=== PATIENT | female | born 1955 | race Caucasian/White ===

== ENCOUNTER 2020-08-17 16:52 | Emergency (ER) | payer OTHER, SELFPAY ==
[2020-08-17] VITALS (13 sets, daily range): BP systolic 123–140; BP diastolic 98–122; PULSE 111–125; RESP 12–38; TEMP 36.8; O2SAT 92–94
--- NOTE | ~2020-08-17 | XR_ITS ---
EXAMINATION: XR chest 1V portable DATE: 08/17/2020 19:01 INDICATION: Weakness. TECHNIQUE: A single frontal view of the chest was obtained. COMPARISON: Chest 2 views 09/28/2018, CT abdomen and pelvis 09/28/2018 FINDINGS: There is mild atelectasis in lingula. No pleural effusion or pneumothorax. The heart size i s normal. There is a small hiatal hernia. IMPRESSION: 1. Mild atelectasis in lingula. 2. Small hiatal hernia. Reviewed, dictated and finalized at location A. ICATION SOFTWARE DEVELOPER
--- NOTE | ~2020-08-17 | CT_ITS ---
EXAMINATION: CT brain wo con DATE: 08/17/2020 18:42 INDICATION: Weakness. TECHNIQUE: Computed tomography (CT) of the head was performed without intravenous contrast. The mA wa s adjusted according to patient size. Iterative reconstruction technique was employed. The dose-lengt h product was 605.33 mGy-cm. COMPARISON: Head CT 10/13/2017 FINDINGS: There is an acute intraparenchymal hematoma in right cerebellar hemisphere with surrounding vasogenic edema and mass effect on the fourth ventricle. There is mild enlargement of the temporal h orns of the lateral ventricles. There is no acute ischemic infarct. There are areas of low attenuatio n in the cerebral white matter, which is within normal limits for the patient's age. The paranasal si nuses are clear. The mastoid air cells are normal. IMPRESSION: 1. Acute intraparenchymal hematoma in right cerebellar hemisphere. I called this result to Dr. Samson huffman. 2. Mild enlargement of the temporal horns of the lateral ventricles secondary to mass effect on the f ourth ventricle from the hematoma. Reviewed, dictated and finalized at location A. GHT BREAKER IMPRESSION: 1. Acute intraparenchymal hematoma in right cerebellar hemisphere. I called thi s result to Dr. Schwartz. 2. Mild enlargement of the temporal horns of the lateral ventricles secondary t o mass effect on the fourth ventricle from the hematoma.
--- NOTE | 2020-08-17 16:46 | ED.WEAKNESS ---
HPI - Weakness General Chief complaint: Altered Mental Status Stated complaint: weakness Source: patient and EMS Mode of arrival: EMS Limitations: dementia and intoxication History of Present Illness HPI Narrative: Patient is a 65-year-old female with a history of polysubstance abuse, diabetes, hepatitis C, hypertension who presents for evaluation of weakness, altered mental status. Family apparently called EMS for patient that was weak, had fallen 2-3 days ago and initially had refused to be transported to the ER. Patient does report some alcohol intake today. She was found with a bottle of vodka in her purse tonight by EMS. Patient is denying headache, chest pain, shortness of breath. Reports mild abdominal pain. Denies nausea or vomiting. History is limited due to patient's mentation. Related Data Allergies Allergy/AdvReac Type Severity Reaction Status Date / Time Penicillins Allergy Severe Hives / Verified 08/17/20 17:05 Red Face prednisone Allergy Intermediate Other Verified 08/17/20 17:05 citalopram Allergy Mild Unknown Verified 08/17/20 17:05 Sulfa (Sulfonamide Allergy Mild Rash Verified 08/17/20 17:05 Antibiotics) tramadol Allergy Unknown VOMITING Verified 08/17/20 17:05 diclofenac AdvReac Intermediate N/V Verified 08/17/20 17:05 Review of Systems Review of Systems: ROS unobtainable: Yes unobtainable due to mental status PMFSH Past Medical History Medical History Anxiety Cervical cancer Cirrhosis COPD (chronic obstructive pulmonary disease) Dementia Depression Diabetes Endocarditis Hepatitis C Humerus fracture Scoliosis Seizure Surgical History Surgical History (Updated 08/17/20 @ 17:00 by Donna Schwartz MD) H/O LEEP Social History Social History (Updated 08/17/20 @ 17:01 by Donna Schwartz MD) Smoking status: Former smoker Tobacco type: cigarettes Alcohol intake: current Gender identity (if verbalized by the patient): Female Exam Narrative: Exam Narrative: GENERAL: Awake, alert, patient is altered, appears intoxicated HEAD: Normocephalic, atraumatic. EYES: 2+ PERRLA and EOMI. ENT: Nares clear, no rhinorrhea or epistaxis. Mucous membranes dry NECK: Supple. CHEST: No respiratory distress, breathing even and non labored, lungs are clear to auscultation bilaterally HEART: Regular rate, sinus rhythm, no murmur rubs or gallops ABDOMEN:Non distended, non tender in all 4 quadrants EXTREMITIES: Normal range of motion. No edema. SKIN: Warm, dry, no rash. NEURO:No focal deficits. Alert and oriented x3, moving all extremities spontaneously Course Vital Signs Vital signs: Vital Signs Temperature 36.8 C 08/17/20 17:02 Pulse Rate 118 H 08/17/20 17:02 Respiratory Rate 16 08/17/20 17:02 Blood Pressure 123/98 H 08/17/20 17:02 Pulse Oximetry 94 08/17/20 17:02 Temperature 36.8 C 08/17/20 17:02 Pulse Rate 111 H 08/17/20 18:15 Respiratory Rate 22 H 08/17/20 18:49 Blood Pressure 133/105 H 08/17/20 18:49 Pulse Oximetry 94 08/17/20 18:00 MDM - Weakness MDM Narrative Medical decision making narrative: Patient presenting for evaluation of altered mental status from baseline. At the time of assessment, ABCs are intact and vital signs notable for tachycardia. No hypotension. Patient without any focal deficits on exam, she does seem more confused and per her typical. No other family is here to corroborate history. No signs of trauma on exam. Imaging is notable for a intraparenchymal hemorrhage, right cerebellar hemisphere. Patient with hypokalemia which was replenished via IV and orally. Patient is protecting her airway. No other electrolyte derangements. Spoke with neurosurgery regarding patient, they recommended IV Decadron, 10 mg, no nicardipine drip for now, goal maps less than 110 which they have been in our ER. Unknown if this is due to trauma versus hypertensive bleed, but at this point, annalee
--- NOTE | 2020-08-17 16:57 | ECG_ITS ---
Measurements Intervals [place] Rate: 115 P: 6 MD: 164 QRS: -20 QRSD: 93 T: 110 QT: 338 QTc: 469 Interpretive Statements SINUS TACHYCARDIA ATRIAL PREMATURE COMPLEX POSSIBLE LEFT ATRIAL ENLARGEMENT LEFT VENTRICULAR HYPERTROPHY AND ST-T CHANGE POOR R WAVE PROGRESSION, ANTERIOR LEADS ABNORMAL ECG Electronically Signed On 08-18-2020 7:55:44 PRICING INTERN by Vinicius Miller D.O.
[2020-08-17 17:33] LABS: Basophils Absolute Auto 0.1 K/mm3 (0.0-0.1); Basophils Percent Auto 0.7 % (0.2-1.2); Eosinophils Absolute Auto 0.1 K/mm3 (0-0.3); Eosinophils Percent Auto 0.6 % (0-4.4); Immature Granulocyte Absolute 0.05 K/mm3 (0.00-0.031); Immature Granulocyte Percent A 0.6 % (0-0.5); Lymphocytes Absolute Auto 0.85 K/mm3 (0.9-3.2); Lymphocytes Percent Auto 9.6 % (18.3-44.2); Mean Corpuscular Hemoglobin 33.7 pg (26-34); Mean Corpuscular Volume 93.6 fl (80-100); Mean Platelet Volume 10.3 fl (7.4-10.4); Monocytes Absolute Auto 1.1 K/mm3 (0.1-0.6); Monocytes Percent Auto 12.3 % (2.6-8.5); Neutrophils Absolute Auto 6.8 K/mm3 (1.3-6.7); Neutrophils Percent Auto 76.2 % (45.5-73.1); Platelet Count Result 140 k/mm3 (150-375); Red Blood Count 5.34 M/mm3 (4.2-5.4); Red Cell Distribution Width 14.6 % (11.5-14.5); White Blood Count 8.9 K/mm3 (4.5-10.0)
[2020-08-17 17:36] LABS: Alveolar/Arterial O2 Gradient 44.4 mmHg; Base Excess ABG 2.5 mEq/l (+/-2.0); Carboxyhemoglobin 0.5 % THb (0-2.0); Fractional Inspired Oxygen 21 %; HCO3 ABG 24.9 mEq/l (22.0-26.0); Methemoglobin ABG 0.5 %THb (0-1.5); Oxygen Content ABG 24.3 %vol (16.0-22.0); Oxygen Saturation ABG 94.7 % (95.0-100.0); Oxyhemoglobin 92.6 % THb (90.0-100.0); PCO2 ABG 32.9 mmHg (35.0-45.0); PO2 ABG 65.9 mmHg (80.0-100.0); PO2 FiO2 Ratio Arterial Blood 3.14 %; Reduced Hemoglobin 6.4 %THb (0-5.0); Total Hemoglobin 18.7 g/dL (12.0-18.0); pH ABG 7.496 (7.350-7.450)
[2020-08-17 17:37] LABS: Device ROOM AIR; Modified Allen's Test Pass; Site Drawn LEFT RADIAL
[2020-08-17 17:48] LABS: INR 1.3; Prothrombin Time 16.7 Seconds (11.1-14.7)
[2020-08-17 17:49] LABS: Partial Thromboplastin Time 30.7 SECONDS (22.3-36.8)
[2020-08-17] MEDS: SODIUM CHLORIDE 0.9% IV 1,000 ML 999 ML IV CONT (17:54)
[2020-08-17] MEDS: ONDANSETRON INJ 4 MG/2 ML VIAL IV PUSH (17:54)
[2020-08-17 17:58] LABS: Troponin I < 0.012 ng/mL (0.000-0.034)
[2020-08-17 18:05] LABS: Alanine Aminotransferase 41 U/L (4-35); Albumin Level 4.2 g/dL (3.5-5.1); Alkaline Phosphatase 123 U/L (38-126); Anion Gap 15 mmol/L (8-16); Aspartate Amino Transferase 68 U/L (14-36); Bilirubin,Total 4.7 mg/dL (0.2-1.3); Blood Urea Nitrogen 15 mg/dL (7-17); Calcium 9.6 mg/dL (8.4-10.2); Carbon Dioxide 25 mmol/L (22-30); Chloride 100 mmol/L (98-107); Creatine Kinase 68 U/L (30-135); Estimated CRCL calculation 93 ml/min; Estimated Glomerular Filt Rate > 60; Glucose 98 mg/dL (65-105); Lipase 191 U/L (23-300); Potassium 2.6 mmol/L (3.4-5.0); Sodium 140 mmol/L (137-145)
[2020-08-17 18:33] LABS: Add Urine Microscopic? YES; Appearance Urine Cloudy (Clear); Bacteria Urine 4+ /hpf; Bilirubin Urine 1+ (Negative); Blood Urine 1+ (Negative); Color Urine Amber (Yellow); Glucose Urine UA 1+ mg/dL (Negative); Ketones Urine Trace mg/dL (Negative); Leukocyte Esterase Ur Negative LEU/UL (Negative); Mucus Urine Heavy /lpf; Nitrate Urine Negative (Negative); Protein Urine 1+ mg/dL (Negative); RBC Urine 0-2 /hpf (0-2); Specific Grav Ur 1.024 (1.001-1.035); Squamous Epithelial Cell Urine Occasional /hpf (Few); WBC Urine 0-3 /hpf
[2020-08-17 18:36] LABS: Acetaminophen < 10 ug/mL (10-30); Ethanol 53 mg/dL (<10)
[2020-08-17 18:54] LABS: Amphetamine Screen Urine Negative (Negative); Barbiturate Screen Urine Negative (Negative); Benzodiazepines Screen Urine Negative (Negative); Cannabinoid Screen Urine Negative (Negative); Cocaine Screen Urine Negative (Negative); Methadone Screen Urine Negative (Negative); Opiate Screen Urine Negative (Negative); Phencyclidine Screen Urine Negative (Negative)
[2020-08-17 19:11] LABS: Ammonia 48 umol/L (9-30)
--- NOTE | 2020-08-17 19:36 | PC.NURSE ---
katharine avelar was called to transfer patient to [facility]. will note when arrive
--- NOTE | 2020-08-17 19:59 | PC.NURSE ---
[facility] has arrived
[2020-08-17] MEDS: POTASSIUM CHLORIDE 20 MEQ PACKET (FOR LIQUID) 40 MEQ PO (20:00)
== END 2020-08-17 20:15 | disposition short-term general hospital (02) ==
PROVIDERS: Emergency Provider Emergency Medicine
DX: I61.4 Nontraumatic intracerebral hemorrhage in cerebellum (principal); E87.6 Hypokalemia; F10.10 Alcohol abuse, uncomplicated; Y90.2 Blood alcohol level of 40-59 mg/100 ml; R41.0 Disorientation, unspecified; E11.9 Type 2 diabetes mellitus without complications; I10 Essential (primary) hypertension; Z85.41 Personal history of malignant neoplasm of cervix uteri; J44.9 Chronic obstructive pulmonary disease, unspecified; F03.90 Unspecified dementia, unspecified severity, without behavioral disturbance, psychotic disturbance, mood disturbance, and anxiety; Z86.19 Personal history of other infectious and parasitic diseases; Z87.891 Personal history of nicotine dependence; R00.0 Tachycardia, unspecified; I49.1 Atrial premature depolarization; R94.31 Abnormal electrocardiogram [ECG] [EKG]; I51.7 Cardiomegaly; K74.60 Unspecified cirrhosis of liver
CPT/HCPCS: 36415; 36600; 51701; 70450; 71045; 80053; 80307; 81001; 82140; 82375; 82550; 82805; 83050; 83690; 84443; 84484; 85025; 85610; 85730; 93005; 96361; 96365; 96368; 96375; 99291; A9270; J1100; J2405; J3411; J3475; J3480; J7030; J7121

== ENCOUNTER 2021-05-07 11:31 | Emergency (ER) | payer OTHER, SELFPAY ==
[2021-05-07] VITALS (14 sets, daily range): BP systolic 99–103; BP diastolic 67–78; PULSE 67–76; RESP 12–21; TEMP 36.4; O2SAT 97–99
--- NOTE | 2021-05-07 11:50 | ED.GENADULT ---
HPI - General Adult General Chief complaint: Recheck/Abnormal Lab/Rx Stated complaint: elevated blood glucose Source: patient and RN notes reviewed History of Present Illness HPI narrative: Patient is a 66 y/o female [facility] for [facility] labs. Patient reportedly had blood sugar in 500s when they did accu check on her this morning. There is no known alleviating or exacerbating factor. Patient is poor historian and does not know why she is here. She states that she feels fine and denies any pain or other problem. Related Data Allergies Allergy/AdvReac Type Severity Reaction Status Date / Time Penicillins Allergy Severe Hives / Verified 08/17/20 17:05 Red Face prednisone Allergy Intermediate Other Verified 08/17/20 17:05 citalopram Allergy Mild Unknown Verified 08/17/20 17:05 Sulfa (Sulfonamide Allergy Mild Rash Verified 08/17/20 17:05 Antibiotics) tramadol Allergy Unknown VOMITING Verified 08/17/20 17:05 diclofenac AdvReac Intermediate N/V Verified 08/17/20 17:05 Review of Systems Review of Systems: ROS unobtainable: Yes unobtainable due to mental status [facility] Past Medical History Medical History Anxiety Cervical cancer Cirrhosis COPD (chronic obstructive pulmonary disease) Dementia Depression Diabetes Endocarditis Hepatitis C Humerus fracture Scoliosis Seizure Surgical History Surgical History H/O LEEP Social History Social History Smoking status: Former smoker Tobacco type: cigarettes Alcohol intake: current Gender identity (if verbalized by the patient): Female Exam Const: General: no acute distress and well developed Orientation/consciousness: oriented to person, oriented to place and confusion HENMT: Head: normocephalic Ears: external ears normal General nose exam: Normal external nose present Eyes: General: appearance normal, both eyes and all related structures Conjunctivae: conjunctivae normal Neck: Neck: normal visual inspection and full ROM Chest: Chest palpation & inspection: normal inspection of the chest and no tenderness Resp: Effort & Inspection: normal respiratory effort Auscultation: clear to auscultation bilaterally Cardio: Rate: regular rate Rhythm: regular rhythm GI: GI Palp: No abdominal tenderness and Yes Soft to palpation Skin: General skin exam: normal color and turgor normal Neuro: General: oriented to person, oriented to place, oriented to time, confusion and other (disoriented to time) Cognition (Neuro): normal cognition Extrem: General: normal to inspection, full ROM and no pedal edema Psych: Appearance: grossly normal Mental Status: mental status grossly normal Affect: normal affect Course Vital Signs Vital signs: Vital Signs Temperature 36.4 C 05/07/21 11:57 Pulse Rate 68 05/07/21 11:57 Respiratory Rate 14 05/07/21 11:57 Blood Pressure 103/78 05/07/21 11:57 Pulse Oximetry 99 05/07/21 11:57 Temperature 36.4 C 05/07/21 11:57 Pulse Rate 68 05/07/21 11:57 Respiratory Rate 14 05/07/21 11:57 Blood Pressure 103/78 05/07/21 11:57 Pulse Oximetry 99 05/07/21 11:57 Medical Decision Making MDM Narrative Medical decision making narrative: Cause of reported hyperglycemia is uncertain. It may be lab error. Her BS is WNL here. Vital Signs Vital Signs: Vital Signs Temperature 36.4 C 05/07/21 11:57 Pulse Rate 68 05/07/21 11:57 Respiratory Rate 14 05/07/21 11:57 Blood Pressure 103/78 05/07/21 11:57 Pulse Oximetry 99 05/07/21 11:57 Temperature 36.4 C 05/07/21 11:57 Pulse Rate 68 05/07/21 11:57 Respiratory Rate 14 05/07/21 11:57 Blood Pressure 103/78 05/07/21 11:57 Pulse Oximetry 99 05/07/21 11:57 Lab Data Result diagrams: 05/07/21 12:38 05/07/21 12:38
[2021-05-07 12:45] LABS: Basophils Percent Auto 0.6 % (0.2-1.2); Eosinophils Absolute Auto 0.1 K/mm3 (0-0.3); Eosinophils Percent Auto 1.9 % (0-4.4); Hematocrit 42.7 % (37.0-47.0); Hemoglobin 13.5 g/dL (12.0-15.0); Immature Granulocyte Absolute 0.01 K/mm3 (0.00-0.031); Immature Granulocyte Percent A 0.2 % (0-0.5); Lymphocytes Absolute Auto 0.58 K/mm3 (0.9-3.2); Lymphocytes Percent Auto 12.5 % (18.3-44.2); Mean Corpuscular HGB Conc 31.6 g/dl (32-36); Mean Corpuscular Hemoglobin 30.3 pg (26-34); Mean Platelet Volume 10.3 fl (7.4-10.4); Monocytes Absolute Auto 0.4 K/mm3 (0.1-0.6); Monocytes Percent Auto 9.5 % (2.6-8.5); Neutrophils Absolute Auto 3.5 K/mm3 (1.3-6.7); Neutrophils Percent Auto 75.3 % (45.5-73.1); Platelet Count Result 65 k/mm3 (150-375); Red Blood Count 4.45 M/mm3 (4.2-5.4); Red Cell Distribution Width 15.1 % (11.5-14.5); White Blood Count 4.7 K/mm3 (4.5-10.0)
[2021-05-07 13:11] LABS: Add Urine Microscopic? YES; Appearance Urine Clear (Clear); Bilirubin Urine Negative (Negative); Blood Urine Negative (Negative); Color Urine Yellow (Yellow); Glucose Urine UA Negative (Negative); Ketones Urine Negative (Negative); Leukocyte Esterase Ur Negative LEU/UL (Negative); Mucus Urine Rare /lpf; Nitrate Urine Negative (Negative); Protein Urine Negative (Negative); WBC Urine 0-3 /hpf
[2021-05-07 13:47] LABS: Alanine Aminotransferase 23 U/L (4-35); Albumin Level 4.1 g/dL (3.5-5.1); Alkaline Phosphatase 100 U/L (38-126); Anion Gap 6 mmol/L (8-16); Aspartate Amino Transferase 39 U/L (14-36); Bilirubin,Total 2.3 mg/dL (0.2-1.3); Blood Urea Nitrogen 15 mg/dL (7-17); Calcium 9.4 mg/dL (8.4-10.2); Carbon Dioxide 20 mmol/L (22-30); Chloride 112 mmol/L (98-107); Estimated Glomerular Filt Rate > 60; Glucose 107 mg/dL (65-110); Potassium 4.2 mmol/L (3.4-5.0); Sodium 138 mmol/L (137-145)
--- NOTE | 2021-05-07 14:16 | PC.NURSE ---
made contact with [facility] to transfer pt to [facility]. eta [phone]
== END 2021-05-07 16:00 ==
PROVIDERS: Emergency Provider Emergency Medicine
DX: F03.90 Unspecified dementia, unspecified severity, without behavioral disturbance, psychotic disturbance, mood disturbance, and anxiety (principal); E11.9 Type 2 diabetes mellitus without complications; K74.60 Unspecified cirrhosis of liver; Z85.41 Personal history of malignant neoplasm of cervix uteri; Z86.19 Personal history of other infectious and parasitic diseases; Z87.891 Personal history of nicotine dependence
CPT/HCPCS: 36415; 51701; 80053; 81001; 85025; 99283

== ENCOUNTER 2021-07-22 13:42 | Inpatient (IN) | payer OTHER, SELFPAY ==
[2021-07-22] VITALS (45 sets, daily range): BP systolic 99–126; BP diastolic 64–96; PULSE 113–159; RESP 18–46; TEMP 37.1–39.2; O2SAT 93–99; BMI 28.3
--- NOTE | ~2021-07-22 | CT_ITS ---
EXAMINATION: CT abdomen pelvis w con DATE: 07/22/2021 18:00 INDICATION: Fever. Altered mental status. TECHNIQUE: Computed tomography (CT) of the abdomen and pelvis was performed with 100 cc Omnipaque 350 intravenous contrast. The dose-length product was 1346.54 mGy-cm. Automated exposure control and ite rative reconstruction technique were employed. COMPARISON: None. FINDINGS: Dependent atelectasis. Cardiomegaly. No evidence for aortic aneurysm. No lymphadenopathy. T here is cirrhosis of the liver. Gallbladder is distended with gallstones and possible gallbladder wal l thickening. There is a radiodensity at the cecum, likely bowel content. There is mild thickening of the right:. No obstruction. Small amount of fluid in the paracolic gutters. No lymphadenopathy. Sple nomegaly. There is an large portal veins, consistent with portal venous hypertension. There is severe scoliosis with advanced multilevel degenerative spondylosis. Large amount of retained fecal material in the colon. There is an old left femoral neck fracture transfixed by 3 screws. The pancreas, adren al glands and right kidney are unremarkable. There is a left renal cyst. IMPRESSION: 1. Cholelithiasis with gallbladder distention and possible gallbladder wall thickening. Consider chol ecystitis in the appropriate clinical setting. 2: Cirrhosis of the liver with portal venous hypertension. Reviewed, dictated and finalized at location A. IMPRESSION: 1. Cholelithiasis with gallbladder distention and possible gallbladder wall thi ckening. Consider cholecystitis in the appropriate clinical setting. 2: Cirrhosis of the liver with portal venous hypertension.
--- NOTE | ~2021-07-22 | XR_ITS ---
EXAMINATION: XR chest 1V portable EXAM DATE: 07/22/2021 14:08 INDICATION: Shortness of breath TECHNIQUE: Portable AP frontal chest x-ray was obtained. Comparison is made to prior examination from 08/17/2020. FINDINGS: Relatively low lung volume with some pulmonary vascular crowding. Mild cardiomegaly. No con fluent consolidation, pneumothorax or pleural effusion suspected. The bones and soft tissues are u nremarkable. IMPRESSION: Cardiomegaly, pulmonary vascular crowding. Reviewed, dictated and finalized at location A.
--- NOTE | ~2021-07-22 | CT_ITS ---
EXAMINATION: CT brain wo con DATE: 07/22/2021 14:39 INDICATION: Confusion. Unresponsive. History of dementia. TECHNIQUE: Computed tomography (CT) of the head was performed without intravenous contrast. The dose- length product was 605.33 mGy-cm. Automated exposure control and iterative reconstruction technique w ere employed. COMPARISON: CT dated 08/17/2020 FINDINGS: There is a focal area of encephalomalacia in the right cerebellar hemisphere in the area of previous hemorrhage seen on 08/17/2020 examination. There is a encephalomalacia in the right frontal lobe from previous frontal lobe infarction. This is new since prior examination. No ventriculomegaly or midline shift. Basilar cisterns are patent. No depressed skull fractures. Paranasal sinuses and m astoids are pneumatized. IMPRESSION: 1. No acute intracranial abnormality identified. 2: Encephalomalacia of the right frontal lobe and right cerebellum which appears chronic. Reviewed, dictated and finalized at location A. IMPRESSION: 1. No acute intracranial abnormality identified. 2: Encephalomalacia of the right frontal lobe and right cerebellum which appear s chronic.
--- NOTE | 2021-07-22 13:52 | ECG_ITS ---
Measurements Intervals [place] Rate: 120 P: 38 MA: 221 QRS: -16 QRSD: 97 T: 190 QT: 340 QTc: 480 Interpretive Statements SINUS TACHYCARDIA LOW VOLTAGE- PRECORDIAL LEADS CONSIDER INFERIOR INFARCT, AGE INDETERMINATE BASELINE ARTIFACT- I, II, III, AVR, AVL, AVF, V1-V6 ABNORMAL ECG Electronically Signed On 07-22-2021 15:04:58 CDT by Vinicius Miller D.O.
--- NOTE | 2021-07-22 13:52 | ED.AMS ---
HPI - Altered Mental Status General Chief Complaint: Altered Mental Status Stated Complaint: AMS Time Seen by Provider: 07/22/21 13:45 Source: EMS and old records reviewed Limitations: altered mental status and clinical condition History of Present Illness HPI narrative: 66-year-old female usually alert and oriented x2 sent from [facility]. When EMS arrived patient was standing next to the bed but was not responding to questions and not speaking. On arrival patient was moving all extremities tachycardic on the monitor, not speaking somewhat agitated. Of note patient has a history of hep C, cirrhosis, cerebellar bleed in the past. Patient arrived afebrile tachycardic 93% on room air. MD complaint: altered mental status, confusion and decreased responsiveness Time: 13:30 Timing confirmed by: other (NH) Severity: severe Consistency of symptoms: constant Related Data Home Medications Medication Instructions Recorded Confirmed albuterol sulfate 2 puff INHALATION Q4H PRN 07/22/21 07/22/21 fluticasone propionate [Flovent 1 inh INHALATION BID 07/22/21 07/22/21 Diskus] lactulose 30 ml PO TID 07/22/21 07/22/21 metoprolol tartrate 25 mg PO BID 07/22/21 07/22/21 multivit with min-folic acid 1 tablet PO DAILY 07/22/21 07/22/21 [Adult One Daily Multivitamin] omeprazole 20 mg PO DAILY 07/22/21 07/22/21 trazodone 50 mg PO HS 07/22/21 07/22/21 venlafaxine 37.5 mg PO DAILY 07/22/21 07/22/21 Allergies Allergy/AdvReac Type Severity Reaction Status Date / Time Penicillins Allergy Severe Hives / Verified 08/17/20 17:05 Red Face prednisone Allergy Intermediate Other Verified 08/17/20 17:05 citalopram Allergy Mild Unknown Verified 08/17/20 17:05 Sulfa (Sulfonamide Allergy Mild Rash Verified 08/17/20 17:05 Antibiotics) tramadol Allergy Unknown VOMITING Verified 08/17/20 17:05 diclofenac AdvReac Intermediate N/V Verified 08/17/20 17:05 Review of Systems Review of Systems: ROS unobtainable: Yes unobtainable due to medical condition and unobtainable due to mental status PMFSH Past Medical History Medical History (Updated 07/22/21 @ 23:05 by Scott Niño RN) Anxiety Cervical cancer Cirrhosis COPD (chronic obstructive pulmonary disease) Dementia Depression Diabetes Endocarditis Hepatitis C Humerus fracture Scoliosis Seizure Surgical History Surgical History H/O LEEP Family History Family History (Updated 07/22/21 @ 23:05 by Scott Niño RN) Father Hypertension Social History Social History Smoking status: Former smoker Tobacco type: cigarettes Second hand tobacco smoke exposure: No Alcohol intake: former Substance use: unknown Gender identity (if verbalized by the patient): Female Spiritual care concerns: No Exam Narrative: General: alert, afebrile with altered mental status, not answering questions or following commands Head: normocephalic, atraumatic Eyes: EOMI bilaterally, anicteric, no injection ENT: dry mucous membranes, oropharynx patent, no rhinorrhea Neck: supple, trachea midline, no JVD Chest: equal chest rise bilaterally, no chest wall trauma noted Lungs: Decreased breath sounds bilateral bases, respirations mildly labored. CV: regular rate, no ALEX B, calf size equal bilaterally Abd: soft, non-distended, negative fluid wave EXT: no deformity noted, DP 2+ BLE Skin: warm, dry, no pallor, jaundiced Neuro: alert, not answering questions, moving all extremities equally Psych: affect appropriate, though content normal Course Consultations Consultation #1: Spoke with Dr Thompson, patient not a surgical candidate with her disease; if he was consulted would be for conservative treatment only; a lot of times inflammation of GB seen due to cirrhosis Date: 07/22/21 Time: 18:40 Consultation #2: Spoke with Dr Jasso, air battle manager who accepts patient to ICU
[2021-07-22 14:22] LABS: INR 1.4; Prothrombin Time 17.3 Seconds (11.1-14.7)
[2021-07-22 14:23] LABS: Partial Thromboplastin Time 32.1 SECONDS (22.3-36.8)
[2021-07-22 14:24] LABS: Lactic Acid Reflex 2.9 mmol/L (0.7-2.1)
[2021-07-22 14:25] LABS: Alanine Aminotransferase 21 U/L (4-35); Albumin Level 3.8 g/dL (3.5-5.1); Alkaline Phosphatase 146 U/L (38-126); Anion Gap 11 mmol/L (8-16); Aspartate Amino Transferase 37 U/L (14-36); Bilirubin,Total 4.3 mg/dL (0.2-1.3); Blood Urea Nitrogen 16 mg/dL (7-17); Calcium 9.2 mg/dL (8.4-10.2); Carbon Dioxide 21 mmol/L (22-30); Chloride 109 mmol/L (98-107); Creatine Kinase 32 U/L (30-135); Estimated Glomerular Filt Rate > 60; Glucose 157 mg/dL (65-110); Potassium 3.4 mmol/L (3.4-5.0); Sodium 141 mmol/L (137-145)
[2021-07-22 14:26] LABS: Acetaminophen < 10 ug/mL (10-30); Ammonia 63 umol/L (9-30); Ethanol < 10 mg/dL (<10); Salicylate < 1.0 mg/dL (2-20)
[2021-07-22 14:33] LABS: Basophils Percent Auto 0.2 % (0.2-1.2); Hematocrit 40.8 % (37.0-47.0); Hemoglobin 13.5 g/dL (12.0-15.0); Immature Granulocyte Absolute 0.05 K/mm3 (0.00-0.031); Immature Granulocyte Percent A 0.6 % (0-0.5); Immature Platelet Fraction Pct 2.6 % (0.9-11.2); Lymphocytes Absolute Auto 0.33 K/mm3 (0.9-3.2); Lymphocytes Percent Auto 3.6 % (18.3-44.2); Mean Corpuscular HGB Conc 33.1 g/dl (32-36); Mean Corpuscular Hemoglobin 32.1 pg (26-34); Mean Corpuscular Volume 97.1 fl (80-100); Mean Platelet Volume 10.5 fl (7.4-10.4); Monocytes Absolute Auto 0.9 K/mm3 (0.1-0.6); Monocytes Percent Auto 9.6 % (2.6-8.5); Neutrophils Absolute Auto 7.8 K/mm3 (1.3-6.7); Platelet Count Result 54 k/mm3 (150-375); Red Cell Distribution Width 15.2 % (11.5-14.5); White Blood Count 9.1 K/mm3 (4.5-10.0)
[2021-07-22 14:37] LABS: Troponin I < 0.012 ng/mL (0.000-0.034)
[2021-07-22] MEDS: LACTATED RINGERS 1,000 ML 999 ML IV CONT ×2 (15:30→16:23)
[2021-07-22 16:22] LABS: Add Urine Microscopic? YES; Appearance Urine Cloudy (Clear); Bilirubin Urine Negative (Negative); Blood Urine 2+ (Negative); Color Urine Yellow (Yellow); Glucose Urine UA Negative (Negative); Ketones Urine Negative (Negative); Leukocyte Esterase Ur 1+ LEU/UL (Negative); Mucus Urine Rare /lpf; Nitrate Urine Negative (Negative); Protein Urine Negative (Negative); Specific Grav Ur 1.016 (1.001-1.035); Squamous Epithelial Cell Urine Few /hpf (Few); WBC Urine 31-50 /hpf
[2021-07-22 16:29] LABS: Amphetamine Screen Urine Negative (Negative); Barbiturate Screen Urine Negative (Negative); Benzodiazepines Screen Urine Negative (Negative); Cannabinoid Screen Urine Negative (Negative); Cocaine Screen Urine Negative (Negative); Methadone Screen Urine Negative (Negative); Opiate Screen Urine Negative (Negative); Phencyclidine Screen Urine Negative (Negative)
--- NOTE | 2021-07-22 17:01 | PC.NURSE ---
Pt with rigors, repeat temp 39.2, aware.
[2021-07-22 17:10] LABS: Reflex Lactic Acid Yes or No Add Lactic
--- NOTE | 2021-07-22 17:39 | PC.NURSE ---
Called lab to add on BNP, C-Reactive Protein.
[2021-07-22 18:04] LABS: CRP 3.4 mg/dL (<1.0)
[2021-07-22 18:11] LABS: NT Pro B Type Natriuretic Pept 244 pg/mL (5-100)
[2021-07-22 18:28] LABS: Lactic Acid 3.3 mmol/L (0.7-2.1)
[2021-07-22 18:30] LABS: Lipase 61 U/L (23-300)
--- NOTE | 2021-07-22 18:33 | PC.NURSE ---
Rosanna called from [place], given update on patient and informed of plan for admission.
--- NOTE | 2021-07-22 19:00 | PC.NURSE ---
Assuming care of pt.
[2021-07-22] MEDS: metroNIDAZOLE 500 MG/ISO 100ML 500 MG/100 ML BAG 100 MG IVPB (19:42)
--- NOTE | 2021-07-22 20:13 | PM.IMHP ---
H&P: HPI History of Present Illness Date/Time: 07/22/21 20:13 Chief Complaint: ALTERED MENTAL STATUS. Narrative: This is a 66-year-old female with past medical history significant for cervical CA, hepatic cirrhosis, hepatitis-C, COPD/emphysema, dementia, seizure disorder, polysubstance abuse, alcohol and cocaine. Patient resides at skilled nursing facility she was brought to the emergency room due to a staff concerns for patient's altered mental status patient has been confused, restless, EMS was called and found the patient standing by her bed she was awake and alert however she was not talking, she was found to be tachycardic on room O2 of 93% on room air patient was brought to the emergency room. Preliminary workup has been significant for urinalysis with numerous WBCs, platelet count of 54,000, a CT of abdomen and pelvis showed thickened gallbladder, CT of the head with no acute intracranial abnormality identified,encephalomalacia of the right frontal lobe and right cerebellum which appears chronic, a chest x-ray was clear. At the time of my visit the patient was unable to give any history she was restless in bed. Most of the history has been obtained upon reviewing medical records and emergency room physician sign-out. Review of Systems Review of Systems: ROS unobtainable: Yes unobtainable due to mental status (Hyperactive delirium) PMFSH Past Medical History Medical History (Updated 07/23/21 @ 01:55 by Rosendo Valdez MD) Anxiety Cervical cancer Cirrhosis COPD (chronic obstructive pulmonary disease) Dementia Depression Diabetes Endocarditis Hepatitis C Humerus fracture Scoliosis Seizure Surgical History Surgical History H/O LEEP Family History Family History (Updated 07/22/21 @ 23:05 by Scott Niño RN) Father Hypertension Social History Social History Smoking status: Former smoker Tobacco type: cigarettes Second hand tobacco smoke exposure: No Alcohol intake: former Substance use: unknown Gender identity (if verbalized by the patient): Female Spiritual care concerns: No Meds Home Medications and Allergies Home Medications Medication Instructions Recorded Confirmed Type albuterol sulfate 2 puff INHALATION Q4H PRN 07/22/21 07/22/21 History fluticasone propionate [Flovent 1 inh INHALATION BID 07/22/21 07/22/21 History Diskus] lactulose 30 ml PO TID 07/22/21 07/22/21 History metoprolol tartrate 25 mg PO BID 07/22/21 07/22/21 History multivit with min-folic acid 1 tablet PO DAILY 07/22/21 07/22/21 History [Adult One Daily Multivitamin] omeprazole 20 mg PO DAILY 07/22/21 07/22/21 History trazodone 50 mg PO HS 07/22/21 07/22/21 History venlafaxine 37.5 mg PO DAILY 07/22/21 07/22/21 History Allergies Allergy/AdvReac Type Severity Reaction Status Date / Time Penicillins Allergy Severe Hives / Verified 08/17/20 17:05 Red Face prednisone Allergy Intermediate Other Verified 08/17/20 17:05 citalopram Allergy Mild Unknown Verified 08/17/20 17:05 Sulfa (Sulfonamide Allergy Mild Rash Verified 08/17/20 17:05 Antibiotics) tramadol Allergy Unknown VOMITING Verified 08/17/20 17:05 diclofenac AdvReac Intermediate N/V Verified 08/17/20 17:05 Vital Signs Vital Signs - 24 hr 07/22/21 13:44 07/22/21 13:50 07/22/21 13:52 Temperature Pulse Rate 123 H 122 H 122 H Respiratory Rate 30 H 25 H 34 H Blood Pressure 100/78 100/78 Pulse Oximetry 93 07/22/21 13:57 07/22/21 14:00 07/22/21 14:01 Temperature 99.4 F Pulse Rate 122 H 123 H Respiratory Rate 35 H 37 H Blood Pressure 104/73 Pulse Oximetry 07/22/21 14:15 07/22/21 14:22 07/22/21 14:38 Temperature Pulse Rate 121 H 124 H 129 H Respiratory Rate 24 H 29 H 27 H Blood Pressure 114/76 Pulse Oximetry 07/22/21 14:45 07/22/21 15:00 07/22/21 15:15 Temperature Pulse Rate 125 H 125 H 1
[2021-07-22] MEDS: LACTATED RINGERS 1,000 ML 125 ML IV CONT (23:18)
[2021-07-23] VITALS (19 sets, daily range): BP systolic 66–137; BP diastolic 50–99; PULSE 105–126; RESP 20–32; TEMP 36.6–38.7; O2SAT 92–99; BMI 28.3
[2021-07-23] MEDS: DEXTROSE 5%/0.45% SOD CHL 1,000 ML 75 ML IV CONT (02:02)
[2021-07-23 04:21] LABS: Hematocrit 33.7 % (37.0-47.0); Hemoglobin 11.2 g/dL (12.0-15.0); Immature Platelet Fraction Pct 2.9 % (0.9-11.2); Mean Corpuscular HGB Conc 33.2 g/dl (32-36); Mean Corpuscular Hemoglobin 32.6 pg (26-34); Mean Platelet Volume 10.4 fl (7.4-10.4); Platelet Count Result 36 k/mm3 (150-375); Red Blood Count 3.44 M/mm3 (4.2-5.4); Red Cell Distribution Width 14.9 % (11.5-14.5); White Blood Count 4.4 K/mm3 (4.5-10.0)
[2021-07-23 04:35] LABS: Ammonia 59 umol/L (9-30)
[2021-07-23 04:36] LABS: Lactic Acid Reflex 2.5 mmol/L (0.7-2.1)
[2021-07-23 04:38] LABS: Alanine Aminotransferase 20 U/L (4-35); Albumin Level 3.1 g/dL (3.5-5.1); Alkaline Phosphatase 103 U/L (38-126); Anion Gap 9 mmol/L (8-16); Aspartate Amino Transferase 31 U/L (14-36); Bilirubin,Total 3.4 mg/dL (0.2-1.3); Blood Urea Nitrogen 13 mg/dL (7-17); Calcium 8.8 mg/dL (8.4-10.2); Carbon Dioxide 22 mmol/L (22-30); Chloride 109 mmol/L (98-107); Estimated CRCL calculation 118 ml/min; Estimated Glomerular Filt Rate > 60; Glucose 176 mg/dL (65-110); Magnesium 1.4 mg/dL (1.6-2.3); Phosphorus 2.2 mg/dL (2.5-4.5); Sodium 140 mmol/L (137-145)
[2021-07-23 07:17] LABS: Reflex Lactic Acid Yes or No Add Lactic
[2021-07-23] MEDS: MAGNESIUM SULF 2 GM/WATER 50ML 2 GM/50 ML BAG IVPB (07:40)
[2021-07-23] MEDS: FLUTICASONE PROP 110 MCG INHALER 12 GM (*SP) 2 PUFF INHALATION ×2 (08:24→19:50)
--- NOTE | 2021-07-23 09:02 | WPDCNINT ---
Assessment and Plan Assessment and plan (1) Altered mental status: Qualifiers: Altered mental status type: stupor Qualified Code(s): R40.1 - Stupor Code(s): R41.82 - Altered mental status, unspecified Status: Acute Assessment and Plan: Altered mental status likely related to sepsis, UTI could also be related to hepatic encephalopathy as her ammonia levels are elevated -continue treat UTI -continue lactulose -maintenance IV fluids -patient is definitely more awake and alert this morning opens remains confused disoriented -will continue to monitor (2) Encephalopathy, hepatic: Code(s): K72.90 - Hepatic failure, unspecified without coma Status: Acute Assessment and Plan: Hepatic encephalopathy, ammonia levels are elevated -patient has been placed on lactulose t.i.d. -will increase dose if patient does not have bowel movements (3) UTI (urinary tract infection): Qualifiers: Hematuria presence: without hematuria Urinary tract infection type: site unspecified Qualified Code(s): N39.0 - Urinary tract infection, site not specified Code(s): N39.0 - Urinary tract infection, site not specified Status: Acute Assessment and Plan: UA indicative of UTI -urine cultures have been obtained and pending -continue Levaquin (4) Sepsis: Qualifiers: Sepsis acute organ dysfunction status: unspecified Sepsis type: sepsis due to unspecified organism Qualified Code(s): A41.9 - Sepsis, unspecified organism Code(s): A41.9 - Sepsis, unspecified organism Status: Acute Assessment and Plan: Patient presented with altered mental status tachycardia, hypotension -was given 2 L IV fluids, given additional 500 mL of Hespan this morning -blood pressures have been stable, remains tachycardic white count is down to 4.4 -maintain mean arterial pressures greater than 65 mmHg -has not been requiring any pressors at this time -lactic acid trending down, will trend lactic acid levels -continue antibiotics Levaquin (5) Thrombocytopenia: Code(s): D69.6 - Thrombocytopenia, unspecified Status: Acute Assessment and Plan: Patient has been thrombocytopenic in the past, could be related to cirrhosis, hepatitis-C, liver dysfunction -now could be related to sepsis -no signs of bleeding, will continue to monitor (6) DVT prophylaxis: Code(s): Z29.9 - Encounter for prophylactic measures, unspecified Status: Acute Assessment and Plan: SCDs Additional Plan Code status: Full code Critical care time spent: 42 minutes This dictation may have been done utilizing a voice recognition system. Attempts have been made to correct errors. However, there may be uncorrected grammatical, spelling, and recognition errors present. Due to a high probability of clinically significant, life threatening deterioration, the patient required my highest level of preparedness to intervene emergently and I personally spent this critical care time directly and personally managing the patient. This critical care time included obtaining a history; examining the patient; pulse oximetry; ordering and review of studies; arranging urgent treatment with development of a management plan; evaluation of patient's response to treatment; frequent reassessment; and discussions with other providers. It was exclusive of separately billable procedures and treating other patients and teaching time. Please see Assessment and Plan section and the rest of the note for further information on patient assessment and treatment Clinical Services Professional Consult Note Consult date: 07/23/21 Time Seen: 06:54 Reason for consult: UTI, encephalopathy HPI: Cassi Alves is a 66 year old female with past medical history of cervical cancer, liver cirrhosis, COPD, dementia, depression, diabetes, endocarditis, hepatitis-C, scoliosis, history of seizures, anxiety presented to the ED from the [facility] with a
[2021-07-23] MEDS: LACTULOSE 20 GM/30 ML UDC PO ×3 (09:06→20:38)
[2021-07-23] MEDS: PANTOPRAZOLE SODIUM IV 40 MG VIAL IV PUSH (09:06)
[2021-07-23] MEDS: hetaSTARCH 6%/NACL 500 ML 250 ML IV CONT (09:14)
[2021-07-23] MEDS: VENLAFAXINE HCL 37.5 MG TABLET PO (09:17)
[2021-07-23] MEDS: THERAPEUTIC MULTIVITAMINS/MINERALS TAB (*BKC) 1 TABLET PO (09:17)
[2021-07-23 09:31] LABS: Lactic Acid 2.8 mmol/L (0.7-2.1)
[2021-07-23] MEDS: LORazepam INJ (*CRX) 2 MG/ML VIAL 0.5 MG IV PUSH (11:31)
--- NOTE | 2021-07-23 12:24 | PM.CNGS ---
Assessment and Plan Assessment and plan (1) Cholelithiasis with cholecystitis: Code(s): K80.10 - Calculus of gallbladder with chronic cholecystitis without obstruction Status: Acute Assessment and Plan: CT scan suggests cholelithiasis with mild distention and gallbladder wall thickening. WBC normal and she is afebrile. The patient is not complaining of any abdominal pain and her abdominal exam is benign. With her liver cirrhosis, portal venous hypertension, thrombocytopenia, and other co-morbidities, the patient is not a candidate for a cholecystectomy. She is too high risk and would likely not survive the surgery. We would recommend to continue treating her with medical management. Continue broad-spectrum IV antibiotics, IV fluids, and monitor labs. No plans for surgical intervention. Thank you for allowing us to see the patient in consultation. (2) UTI (urinary tract infection): Qualifiers: Hematuria presence: without hematuria Urinary tract infection type: site unspecified Qualified Code(s): N39.0 - Urinary tract infection, site not specified Code(s): N39.0 - Urinary tract infection, site not specified Status: Acute (3) Sepsis: Qualifiers: Sepsis acute organ dysfunction status: unspecified Sepsis type: sepsis due to unspecified organism Qualified Code(s): A41.9 - Sepsis, unspecified organism Code(s): A41.9 - Sepsis, unspecified organism Status: Acute (4) Encephalopathy, hepatic: Code(s): K72.90 - Hepatic failure, unspecified without coma Status: Acute (5) Elevated LFTs: Code(s): R79.89 - Other specified abnormal findings of blood chemistry Status: Acute Assessment and Plan: Could be related to chronic liver disease. Clinically, she does not correlate with acute cholecystitis. (6) Thrombocytopenia: Code(s): D69.6 - Thrombocytopenia, unspecified Status: Acute (7) Cirrhosis: Code(s): K74.60 - Unspecified cirrhosis of liver Status: Acute (8) Hepatitis C: Code(s): B19.20 - Unspecified viral hepatitis C without hepatic coma Status: Acute (9) Diabetes: Code(s): E11.9 - Type 2 diabetes mellitus without complications Status: Inactive (10) COPD (chronic obstructive pulmonary disease): Code(s): J44.9 - Chronic obstructive pulmonary disease, unspecified Status: Acute Additional Plan I have discussed the patient's case and plan of care with Dr. Asencio. History of Present Illness Consult details Consult date: 07/23/21 Reason for consult: other (Possible acute cholecystitis, sepsis) Requesting physician: Melissa Mcleod MD Narrative: This is a 66 year-old female with a history of multiple medical problems, including but no limited to, liver cirrhosis with portal venous hypertension, hepatitis, C, alcohol abuse, polysubstance abuse, and COPD, who was brought into the ER for evaluation of altered mental status. She resides in a intermediate and is confused on my exam, limiting her history. She is unable to provider much history and only answers a few simple questions. Therefore, her history is also obtained from review of her electronic medical record. EMS was apparently called due to the patient becoming unresponsive, but she was standing in her room alert when they arrived. She would not answer questions and was found to be tachycardic and agitated. On evaluation in the ER, she was found to have significant thrombocytopenia, normal white blood cell count with a left shift, elevated total bilirubin, elevated ammonia, and her urinalysis was suggestive of urinary tract infection. CT scan of the abdomen and pelvis showed cholelithiasis with gallbladder distention and possible gallbladder wall thickening. Also noted was cirrhosis of the liver with portal venous hypertension. Head CT showed no acute intracranial abnormalities. She was admitted to the ICU and started on broad-spectrum
[2021-07-23] MEDS: LACTATED RINGERS 1,000 ML 75 ML IV CONT (16:24)
[2021-07-23] MEDS: traZODone HCL 50 MG TABLET PO (20:39)
[2021-07-23] MEDS: ACETAMINOPHEN 650 MG SUPPOSITORY RECTAL (20:43)
[2021-07-23] MEDS: ACETAMINOPHEN 325 MG SUPPOSITORY RECTAL (20:43)
[2021-07-23] MEDS: LACTATED RINGERS 1,000 ML 999 ML IV CONT (23:00)
[2021-07-24] VITALS (18 sets, daily range): BP systolic 87–114; BP diastolic 50–87; PULSE 73–129; RESP 21–33; TEMP 36.3–38.3; O2SAT 93–95
[2021-07-24 05:01] LABS: Basophils Percent Auto 0.5 % (0.2-1.2); Hematocrit 30.7 % (37.0-47.0); Hemoglobin 9.6 g/dL (12.0-15.0); Immature Granulocyte Absolute 0.01 K/mm3 (0.00-0.031); Immature Granulocyte Percent A 0.5 % (0-0.5); Immature Platelet Fraction Pct 4.5 % (0.9-11.2); Lymphocytes Absolute Auto 0.19 K/mm3 (0.9-3.2); Lymphocytes Percent Auto 9.3 % (18.3-44.2); Mean Corpuscular HGB Conc 31.3 g/dl (32-36); Mean Corpuscular Hemoglobin 31.6 pg (26-34); Mean Platelet Volume 10.5 fl (7.4-10.4); Monocytes Absolute Auto 0.3 K/mm3 (0.1-0.6); Monocytes Percent Auto 15.7 % (2.6-8.5); Neutrophils Absolute Auto 1.5 K/mm3 (1.3-6.7); Platelet Count Result 38 k/mm3 (150-375); Red Blood Count 3.04 M/mm3 (4.2-5.4); Red Cell Distribution Width 14.7 % (11.5-14.5)
[2021-07-24 05:14] LABS: INR 1.6
[2021-07-24 05:15] LABS: Partial Thromboplastin Time 37.1 SECONDS (22.3-36.8)
[2021-07-24 05:17] LABS: Ammonia 47 umol/L (9-30)
[2021-07-24 05:18] LABS: Alanine Aminotransferase 17 U/L (4-35); Albumin Level 2.4 g/dL (3.5-5.1); Alkaline Phosphatase 77 U/L (38-126); Anion Gap 1 mmol/L (8-16); Aspartate Amino Transferase 28 U/L (14-36); Blood Urea Nitrogen 9 mg/dL (7-17); Calcium 8.3 mg/dL (8.4-10.2); Carbon Dioxide 30 mmol/L (22-30); Chloride 109 mmol/L (98-107); Estimated CRCL calculation 118 ml/min; Estimated Glomerular Filt Rate > 60; Glucose 114 mg/dL (65-110); Magnesium 1.7 mg/dL (1.6-2.3); Phosphorus 3.3 mg/dL (2.5-4.5); Potassium 3.3 mmol/L (3.4-5.0); Sodium 140 mmol/L (137-145)
[2021-07-24 05:19] LABS: Lactic Acid Reflex 1.1 mmol/L (0.7-2.1)
[2021-07-24] MEDS: LACTATED RINGERS 1,000 ML 75 ML IV CONT ×2 (05:33→15:23)
--- NOTE | 2021-07-24 08:06 | PCRTNOTE ---
pt. unable to do mdi at this time.
[2021-07-24] MEDS: PANTOPRAZOLE SODIUM IV 40 MG VIAL IV PUSH (08:10)
[2021-07-24] MEDS: VENLAFAXINE HCL 37.5 MG TABLET PO (08:10)
[2021-07-24] MEDS: LACTULOSE 20 GM/30 ML UDC PO ×3 (08:11→17:34)
[2021-07-24] MEDS: THERAPEUTIC MULTIVITAMINS/MINERALS TAB (*BKC) 1 TABLET PO (08:11)
--- NOTE | 2021-07-24 08:26 | PCRCNOTE ---
pt. unable to properly complete inhaler at this time.
[2021-07-24] MEDS: ACETAMINOPHEN 325 MG TABLET 650 MG PO ×2 (12:29→23:03)
--- NOTE | 2021-07-24 14:50 | PM.IMPN ---
Progress Note: A&P Assessment and Plan (1) Altered mental status: Qualifiers: Altered mental status type: stupor Qualified Code(s): R40.1 - Stupor Code(s): R41.82 - Altered mental status, unspecified Status: Acute Assessment and Plan: Altered mental status likely related to sepsis, UTI could also be related to hepatic encephalopathy as her ammonia levels are elevated -continue treat UTI -continue lactulose -maintenance IV fluids -patient is definitely more awake and alert this morning opens remains confused disoriented CT head within encephalomalacia of the right frontal lobe and right cerebellum which appears chronic (2) Encephalopathy, hepatic: Code(s): K72.90 - Hepatic failure, unspecified without coma Status: Acute Assessment and Plan: Hepatic encephalopathy, ammonia levels are elevated -patient has been placed on lactulose t.i.d. -will increase dose if patient does not have bowel movements (3) UTI (urinary tract infection): Qualifiers: Hematuria presence: without hematuria Urinary tract infection type: site unspecified Qualified Code(s): N39.0 - Urinary tract infection, site not specified Code(s): N39.0 - Urinary tract infection, site not specified Status: Acute Assessment and Plan: UA indicative of UTI -urine cultures have been obtained and pending -continue Levaquin (4) Sepsis: Qualifiers: Sepsis acute organ dysfunction status: unspecified Sepsis type: sepsis due to unspecified organism Qualified Code(s): A41.9 - Sepsis, unspecified organism Code(s): A41.9 - Sepsis, unspecified organism Status: Acute Assessment and Plan: Patient presented with altered mental status tachycardia, hypotension -was given 2 L IV fluids, given additional 500 mL of Hespan this morning -blood pressures have been stable, remains tachycardic white count is down to 4.4 -maintain mean arterial pressures greater than 65 mmHg -has not been requiring any pressors at this time -lactic acid trending down, will trend lactic acid levels -continue antibiotics Levaquin Blood culture positive in coagulase negative times time I will add vancomycin still continues to remain febrile (5) Thrombocytopenia: Code(s): D69.6 - Thrombocytopenia, unspecified Status: Acute Assessment and Plan: Patient has been thrombocytopenic in the past, could be related to cirrhosis, hepatitis-C, liver dysfunction -now could be related to sepsis -no signs of bleeding, will continue to monitor Thrombocytopenia worsened compared to previous levels likely due to sepsis Check DIC panel (6) DVT prophylaxis: Code(s): Z29.9 - Encounter for prophylactic measures, unspecified Status: Acute Assessment and Plan: SCDs (7) Cholelithiasis with cholecystitis: Code(s): K80.10 - Calculus of gallbladder with chronic cholecystitis without obstruction Status: Acute Assessment and Plan: CT abdomen and pelvis with cholelithiasis with gallbladder distention and possible gallbladder wall thickening. Underlying cirrhosis and portal hypertension might relate the findings On Levaquin will add Flagyl GI anaerobic coverage General surgery on board (8) Hypokalemia: Code(s): E87.6 - Hypokalemia Status: Acute Assessment and Plan: Replace (9) Bacteremia: Code(s): R78.81 - Bacteremia Status: Acute Assessment and Plan: Coagulase-negative staphylococci Will repeat blood culture Due to persistent fever will start with vancomycin IV (10) Anemia: Code(s): D64.9 - Anemia, unspecified Status: Acute Assessment and Plan: Hemoglobin has dropped from 13 at admission to 9.6 some of them could be from hemodilution due to IV hydration. No signs of active bleeding ongoing will continue to monitor Subjective Date/time seen: 07/24/21 14:50 Interval history: Hypotensive overnight remains fe
[2021-07-24] MEDS: POTASSIUM CHLORIDE 20 MEQ TABLET 40 MEQ PO (15:24)
[2021-07-24] MEDS: metroNIDAZOLE 500 MG/ISO 100ML 500 MG/100 ML BAG 100 MG IVPB ×2 (16:09→21:28)
[2021-07-24 16:32] LABS: Immature Platelet Fraction Pct 4.4 % (0.9-11.2); Mean Platelet Volume 10.9 fl (7.4-10.4); Platelet Count Result 45 k/mm3 (150-375)
[2021-07-24 16:44] LABS: INR 1.5; Prothrombin Time 17.4 Seconds (11.1-14.7)
[2021-07-24 16:45] LABS: Partial Thromboplastin Time 32.4 SECONDS (22.3-36.8)
[2021-07-24 16:48] LABS: D Dimer 2.28 ug/mL (<0.48)
[2021-07-24 16:50] LABS: Fibrinogen 196 mg/dl (215-510)
[2021-07-24 16:53] LABS: Magnesium 1.7 mg/dL (1.6-2.3)
[2021-07-24] MEDS: traZODone HCL 50 MG TABLET PO (20:00)
[2021-07-24] MEDS: FLUTICASONE PROP 110 MCG INHALER 12 GM (*SP) 2 PUFF INHALATION (20:04)
[2021-07-25] VITALS (24 sets, daily range): BP systolic 95–114; BP diastolic 58–73; PULSE 74–139; RESP 18–32; TEMP 36.4–38.4; O2SAT 90–97
[2021-07-25] MEDS: LACTATED RINGERS 1,000 ML 75 ML IV CONT ×2 (02:23→21:40)
[2021-07-25 04:32] LABS: Basophils Percent Auto 0.5 % (0.2-1.2); Eosinophils Absolute Auto 0.1 K/mm3 (0-0.3); Eosinophils Percent Auto 2.3 % (0-4.4); Hematocrit 30.6 % (37.0-47.0); Hemoglobin 9.9 g/dL (12.0-15.0); Immature Platelet Fraction Pct 3.3 % (0.9-11.2); Lymphocytes Absolute Auto 0.25 K/mm3 (0.9-3.2); Lymphocytes Percent Auto 11.3 % (18.3-44.2); Mean Corpuscular HGB Conc 32.4 g/dl (32-36); Mean Corpuscular Hemoglobin 32.4 pg (26-34); Mean Platelet Volume 10.9 fl (7.4-10.4); Monocytes Absolute Auto 0.4 K/mm3 (0.1-0.6); Monocytes Percent Auto 16.7 % (2.6-8.5); Neutrophils Absolute Auto 1.5 K/mm3 (1.3-6.7); Neutrophils Percent Auto 69.2 % (45.5-73.1); Platelet Count Result 45 k/mm3 (150-375); Red Blood Count 3.06 M/mm3 (4.2-5.4); Red Cell Distribution Width 14.8 % (11.5-14.5); White Blood Count 2.2 K/mm3 (4.5-10.0)
[2021-07-25 04:48] LABS: Alanine Aminotransferase 16 U/L (4-35); Albumin Level 2.4 g/dL (3.5-5.1); Alkaline Phosphatase 67 U/L (38-126); Anion Gap 5 mmol/L (8-16); Aspartate Amino Transferase 26 U/L (14-36); Bilirubin,Total 1.5 mg/dL (0.2-1.3); Blood Urea Nitrogen 7 mg/dL (7-17); Calcium 8.1 mg/dL (8.4-10.2); Carbon Dioxide 26 mmol/L (22-30); Chloride 108 mmol/L (98-107); Estimated CRCL calculation 124 ml/min; Estimated Glomerular Filt Rate > 60; Glucose 145 mg/dL (65-110); Magnesium 1.5 mg/dL (1.6-2.3); Potassium 3.5 mmol/L (3.4-5.0); Sodium 139 mmol/L (137-145)
[2021-07-25 04:53] LABS: Ammonia 35 umol/L (9-30)
[2021-07-25] MEDS: metroNIDAZOLE 500 MG/ISO 100ML 500 MG/100 ML BAG 100 MG IVPB ×3 (05:08→23:58)
[2021-07-25] MEDS: FLUTICASONE PROP 110 MCG INHALER 12 GM (*SP) 2 PUFF INHALATION ×2 (08:00→21:01)
[2021-07-25] MEDS: VENLAFAXINE HCL 37.5 MG TABLET PO (08:07)
[2021-07-25] MEDS: LACTULOSE 20 GM/30 ML UDC PO ×3 (08:07→18:03)
[2021-07-25] MEDS: METOPROLOL TARTRATE 12.5 MG TABLET PO ×2 (08:07→22:36)
[2021-07-25] MEDS: THERAPEUTIC MULTIVITAMINS/MINERALS TAB (*BKC) 1 TABLET PO (08:07)
[2021-07-25] MEDS: PANTOPRAZOLE SODIUM IV 40 MG VIAL IV PUSH (08:08)
--- NOTE | 2021-07-25 09:30 | PC.NURSE ---
This patient, Cassi Alves, was transferred to [[id number]] on 07/25/21 at 0930. Personal belongings sent with patient. Report given to [Patti Matute]. Appropriate documentation sent with patient.
--- NOTE | 2021-07-25 11:49 | PCDIET ---
Nutrition Follow-Up Complete: Nutrition Diagnosis: Predicted suboptimal oral intake related to encephalopathy as evidenced by clear liquid diet order. Nutrition Goal: Patient to meet estimated nutritional needs. Goal in progress. Patient consumed an average of 70% of meals on 07/24/21. Diet has advanced to regular, and Ensure Compact is scheduled to arrive with next meal and continue twice per day. Recommend magnesium replacement, if medically appropriate. Last recorded weight is 87.4 kg which is increased from last review. +I/O. Bowel Motility: Last documented BM on 07/23/21 x 1. Labs Reviewed: WBC (2.2), RBC (3.06), Hgb (9.9), Hct (30.6), Glu (145), Cr (0.4), Alb (2.4), Minnie Ca (9.38), Mg (1.5) Meds Noted: LR at 75mL/hr, Lactulose, Levaquin, Lopressor, Flagyl, MVI/minerals, Protonix, Desyrel, Vancomycin, Effexor Additional Notes: No documented skin breakdown. Will continue to monitor with same goal. Nutrition Monitoring and Evaluation: Follow up in 5 days.
--- NOTE | 2021-07-25 12:58 | P.PNIM_ITS ---
Progress Note: A&P Assessment and Plan (1) Altered mental status: Qualifiers: Altered mental status type: stupor Qualified Code(s): R40.1 - Stupor Code(s): R41.82 - Altered mental status, unspecified Status: Acute Assessment and Plan: Altered mental status likely related to sepsis, UTI could also be related to hepatic encephalopathy as her ammonia levels are elevated -continue treat UTI -continue lactulose -maintenance IV fluids -patient is definitely more awake and alert this morning opens remains confused disoriented CT head within encephalomalacia of the right frontal lobe and right cerebellum which appears chronic (2) Encephalopathy, hepatic: Code(s): K72.90 - Hepatic failure, unspecified without coma Status: Acute Assessment and Plan: Hepatic encephalopathy, ammonia levels are elevated -patient has been placed on lactulose t.i.d. -will increase dose if patient does not have bowel movements (3) UTI (urinary tract infection): Qualifiers: Hematuria presence: without hematuria Urinary tract infection type: site unspecified Qualified Code(s): N39.0 - Urinary tract infection, site not specified Code(s): N39.0 - Urinary tract infection, site not specified Status: Acute Assessment and Plan: UA indicative of UTI -urine cultures have been obtained and pending -continue Levaquin (4) Sepsis: Qualifiers: Sepsis acute organ dysfunction status: unspecified Sepsis type: sepsis due to unspecified organism Qualified Code(s): A41.9 - Sepsis, unspecified organism Code(s): A41.9 - Sepsis, unspecified organism Status: Acute Assessment and Plan: Patient presented with altered mental status tachycardia, hypotension -was given 2 L IV fluids, given additional 500 mL of Hespan this morning -blood pressures have been stable, remains tachycardic white count is down to 4.4 -maintain mean arterial pressures greater than 65 mmHg -has not been requiring any pressors at this time -lactic acid trending down, will trend lactic acid levels -continue antibiotics Levaquin Blood culture positive in coagulase negative times time I will add vancomycin still continues to remain febrile (5) Thrombocytopenia: Code(s): D69.6 - Thrombocytopenia, unspecified Status: Acute Assessment and Plan: Patient has been thrombocytopenic in the past, could be related to cirrhosis, hepatitis-C, liver dysfunction -now could be related to sepsis -no signs of bleeding, will continue to monitor Thrombocytopenia worsened compared to previous levels likely due to sepsis Check DIC panel (6) DVT prophylaxis: Code(s): Z29.9 - Encounter for prophylactic measures, unspecified Status: Acute Assessment and Plan: SCDs (7) Cholelithiasis with cholecystitis: Code(s): K80.10 - Calculus of gallbladder with chronic cholecystitis without obstruction Status: Acute Assessment and Plan: CT abdomen and pelvis with cholelithiasis with gallbladder distention and possible gallbladder wall thickening. Underlying cirrhosis and portal hy pertension might relate the findings On Levaquin will add Flagyl GI anaerobic coverage General surgery on board (8) Hypokalemia: Code(s): E87.6 - Hypokalemia Status: Acute Assessment and Plan: Replace (9) Bacteremia: Code(s): R78.81 - Bacteremia Status: Acute Assessment and Plan: Coagulase-negative staphylococci Will repeat blood culture Due to persistent fever will start with vancomy
[2021-07-25] MEDS: traZODone HCL 50 MG TABLET PO (22:38)
[2021-07-26] VITALS (20 sets, daily range): BP systolic 87–106; BP diastolic 56–71; PULSE 74–118; RESP 15–24; TEMP 36.2–37.4; O2SAT 93–99
[2021-07-26 03:26] LABS: Basophils Percent Auto 0.4 % (0.2-1.2); Eosinophils Absolute Auto 0.1 K/mm3 (0-0.3); Eosinophils Percent Auto 3.1 % (0-4.4); Hematocrit 31.7 % (37.0-47.0); Hemoglobin 10.3 g/dL (12.0-15.0); Immature Granulocyte Absolute 0.02 K/mm3 (0.00-0.031); Immature Granulocyte Percent A 0.8 % (0-0.5); Immature Platelet Fraction Pct 3.8 % (0.9-11.2); Lymphocytes Absolute Auto 0.37 K/mm3 (0.9-3.2); Lymphocytes Percent Auto 14.3 % (18.3-44.2); Mean Corpuscular HGB Conc 32.5 g/dl (32-36); Mean Corpuscular Hemoglobin 32.2 pg (26-34); Mean Corpuscular Volume 99.1 fl (80-100); Mean Platelet Volume 10.6 fl (7.4-10.4); Monocytes Absolute Auto 0.4 K/mm3 (0.1-0.6); Monocytes Percent Auto 14.7 % (2.6-8.5); Neutrophils Absolute Auto 1.7 K/mm3 (1.3-6.7); Neutrophils Percent Auto 66.7 % (45.5-73.1); Platelet Count Result 50 k/mm3 (150-375); Red Cell Distribution Width 14.8 % (11.5-14.5); White Blood Count 2.6 K/mm3 (4.5-10.0)
[2021-07-26 03:35] LABS: Alanine Aminotransferase 16 U/L (4-35); Albumin Level 2.6 g/dL (3.5-5.1); Alkaline Phosphatase 75 U/L (38-126); Anion Gap 6 mmol/L (8-16); Aspartate Amino Transferase 24 U/L (14-36); Bilirubin,Total 1.4 mg/dL (0.2-1.3); Blood Urea Nitrogen 7 mg/dL (7-17); Calcium 8.2 mg/dL (8.4-10.2); Carbon Dioxide 27 mmol/L (22-30); Chloride 106 mmol/L (98-107); Estimated CRCL calculation 104 ml/min; Estimated Glomerular Filt Rate > 60; Glucose 105 mg/dL (65-110); Magnesium 1.5 mg/dL (1.6-2.3); Potassium 3.9 mmol/L (3.4-5.0); Sodium 139 mmol/L (137-145)
[2021-07-26 03:52] LABS: Vancomycin Trough 8.7 ug/mL (10.0-20.0)
[2021-07-26] MEDS: metroNIDAZOLE 500 MG/ISO 100ML 500 MG/100 ML BAG 100 MG IVPB ×2 (06:03→14:34)
[2021-07-26] MEDS: FLUTICASONE PROP 110 MCG INHALER 12 GM (*SP) 2 PUFF INHALATION ×2 (09:27→20:13)
[2021-07-26] MEDS: VENLAFAXINE HCL 37.5 MG TABLET PO (09:56)
[2021-07-26] MEDS: LACTULOSE 20 GM/30 ML UDC PO ×3 (09:56→17:57)
[2021-07-26] MEDS: THERAPEUTIC MULTIVITAMINS/MINERALS TAB (*BKC) 1 TABLET PO (09:56)
[2021-07-26] MEDS: PANTOPRAZOLE SODIUM IV 40 MG VIAL IV PUSH (12:21)
[2021-07-26] MEDS: MAGNESIUM SULF 1 GM/D5W 100 ML 1 GM/100 ML BAG IVPB (12:33)
--- NOTE | 2021-07-26 13:29 | PC.NURSE ---
On 07/26/21, the student, [Kimmie Lockett], provided care and completed [facility] documentation on this patient. I have reviewed the student's documentation and agree with the findings.
[2021-07-26] MEDS: LACTATED RINGERS 1,000 ML 75 ML IV CONT (18:01)
[2021-07-26] MEDS: traZODone HCL 50 MG TABLET PO (21:46)
[2021-07-27] VITALS (16 sets, daily range): BP systolic 87–110; BP diastolic 47–73; PULSE 83–119; RESP 16–24; TEMP 36.2–36.4; O2SAT 90–98
[2021-07-27] MEDS: metroNIDAZOLE 500 MG/ISO 100ML 500 MG/100 ML BAG 100 MG IVPB ×4 (00:08→22:22)
[2021-07-27] MEDS: MAGNESIUM SULF 1 GM/D5W 100 ML 1 GM/100 ML BAG IVPB (00:08)
[2021-07-27 05:20] LABS: Basophils Percent Auto 0.8 % (0.2-1.2); Eosinophils Absolute Auto 0.1 K/mm3 (0-0.3); Eosinophils Percent Auto 2.9 % (0-4.4); Hematocrit 32.3 % (37.0-47.0); Immature Granulocyte Absolute 0.02 K/mm3 (0.00-0.031); Immature Granulocyte Percent A 0.8 % (0-0.5); Lymphocytes Absolute Auto 0.28 K/mm3 (0.9-3.2); Lymphocytes Percent Auto 11.7 % (18.3-44.2); Mean Corpuscular Hemoglobin 30.9 pg (26-34); Mean Corpuscular Volume 99.7 fl (80-100); Mean Platelet Volume 10.4 fl (7.4-10.4); Monocytes Absolute Auto 0.3 K/mm3 (0.1-0.6); Monocytes Percent Auto 11.7 % (2.6-8.5); Neutrophils Absolute Auto 1.7 K/mm3 (1.3-6.7); Neutrophils Percent Auto 72.1 % (45.5-73.1); Platelet Count Result 47 k/mm3 (150-375); Red Blood Count 3.24 M/mm3 (4.2-5.4); Red Cell Distribution Width 14.7 % (11.5-14.5); White Blood Count 2.4 K/mm3 (4.5-10.0)
[2021-07-27 05:37] LABS: Alanine Aminotransferase 14 U/L (4-35); Albumin Level 2.5 g/dL (3.5-5.1); Alkaline Phosphatase 78 U/L (38-126); Anion Gap 5 mmol/L (8-16); Aspartate Amino Transferase 22 U/L (14-36); Bilirubin,Total 0.9 mg/dL (0.2-1.3); Blood Urea Nitrogen 7 mg/dL (7-17); Calcium 8.5 mg/dL (8.4-10.2); Carbon Dioxide 28 mmol/L (22-30); Chloride 107 mmol/L (98-107); Estimated CRCL calculation 104 ml/min; Estimated Glomerular Filt Rate > 60; Glucose 148 mg/dL (65-110); Potassium 3.8 mmol/L (3.4-5.0); Sodium 140 mmol/L (137-145)
[2021-07-27] MEDS: FLUTICASONE PROP 110 MCG INHALER 12 GM (*SP) 2 PUFF INHALATION ×2 (08:44→20:37)
[2021-07-27] MEDS: PANTOPRAZOLE SODIUM IV 40 MG VIAL IV PUSH (09:00)
[2021-07-27] MEDS: THERAPEUTIC MULTIVITAMINS/MINERALS TAB (*BKC) 1 TABLET PO (09:00)
[2021-07-27] MEDS: METOPROLOL TARTRATE 12.5 MG TABLET PO ×2 (09:00→22:21)
[2021-07-27] MEDS: VENLAFAXINE HCL 37.5 MG TABLET PO (09:00)
[2021-07-27] MEDS: LACTULOSE 20 GM/30 ML UDC PO ×3 (09:00→17:26)
[2021-07-27] MEDS: LACTATED RINGERS 1,000 ML 75 ML IV CONT (13:27)
[2021-07-27 15:32] LABS: Vancomycin Trough 11.5 ug/mL (10.0-20.0)
--- NOTE | 2021-07-27 16:13 | PC.NURSE ---
This patient, Cassi Alves, was transferred to [facility] on 07/27/21 at 1512. Personal belongings sent with patient. Report given to MARII Lopez. Appropriate documentation sent with patient.
[2021-07-27] MEDS: traZODone HCL 50 MG TABLET PO (22:21)
[2021-07-28] VITALS (9 sets, daily range): BP systolic 101–115; BP diastolic 68–78; PULSE 74–114; RESP 18–22; TEMP 36.3–36.7; O2SAT 94–98
[2021-07-28] MEDS: LACTATED RINGERS 1,000 ML 75 ML IV CONT (03:39)
[2021-07-28 06:55] LABS: Basophils Percent Auto 0.3 % (0.2-1.2); Eosinophils Absolute Auto 0.1 K/mm3 (0-0.3); Eosinophils Percent Auto 3.3 % (0-4.4); Hematocrit 32.7 % (37.0-47.0); Hemoglobin 10.4 g/dL (12.0-15.0); Immature Granulocyte Absolute 0.02 K/mm3 (0.00-0.031); Immature Granulocyte Percent A 0.7 % (0-0.5); Lymphocytes Absolute Auto 0.37 K/mm3 (0.9-3.2); Lymphocytes Percent Auto 12.1 % (18.3-44.2); Mean Corpuscular HGB Conc 31.8 g/dl (32-36); Mean Corpuscular Hemoglobin 31.2 pg (26-34); Mean Corpuscular Volume 98.2 fl (80-100); Mean Platelet Volume 10.8 fl (7.4-10.4); Monocytes Absolute Auto 0.3 K/mm3 (0.1-0.6); Monocytes Percent Auto 10.1 % (2.6-8.5); Neutrophils Absolute Auto 2.3 K/mm3 (1.3-6.7); Neutrophils Percent Auto 73.5 % (45.5-73.1); Platelet Count Result 63 k/mm3 (150-375); Red Blood Count 3.33 M/mm3 (4.2-5.4); Red Cell Distribution Width 15.1 % (11.5-14.5); White Blood Count 3.1 K/mm3 (4.5-10.0)
[2021-07-28] MEDS: metroNIDAZOLE 500 MG/ISO 100ML 500 MG/100 ML BAG 100 MG IVPB ×2 (06:57→13:46)
[2021-07-28 07:05] LABS: Alanine Aminotransferase 15 U/L (4-35); Albumin Level 2.8 g/dL (3.5-5.1); Alkaline Phosphatase 72 U/L (38-126); Anion Gap 5 mmol/L (8-16); Aspartate Amino Transferase 27 U/L (14-36); Bilirubin,Total 0.8 mg/dL (0.2-1.3); Blood Urea Nitrogen 8 mg/dL (7-17); Calcium 8.3 mg/dL (8.4-10.2); Carbon Dioxide 25 mmol/L (22-30); Chloride 108 mmol/L (98-107); Estimated CRCL calculation 128 ml/min; Estimated Glomerular Filt Rate > 60; Glucose 142 mg/dL (65-110); Potassium 3.9 mmol/L (3.4-5.0); Sodium 138 mmol/L (137-145)
[2021-07-28] MEDS: FLUTICASONE PROP 110 MCG INHALER 12 GM (*SP) 2 PUFF INHALATION ×2 (08:08→20:53)
[2021-07-28] MEDS: LACTULOSE 20 GM/30 ML UDC PO ×2 (08:54→12:54)
[2021-07-28] MEDS: VENLAFAXINE HCL 37.5 MG TABLET PO (08:54)
[2021-07-28] MEDS: METOPROLOL TARTRATE 12.5 MG TABLET PO (08:54)
[2021-07-28] MEDS: THERAPEUTIC MULTIVITAMINS/MINERALS TAB (*BKC) 1 TABLET PO (08:55)
[2021-07-28] MEDS: PANTOPRAZOLE SODIUM IV 40 MG VIAL IV PUSH (08:55)
[2021-07-29] VITALS (12 sets, daily range): BP systolic 92–110; BP diastolic 58–78; PULSE 72–111; RESP 18–20; TEMP 36.2–36.6; O2SAT 92–99
--- NOTE | 2021-07-29 01:58 | PC.NURSE ---
Daylight Savings Time For Daylight Savings Time Ending in the Fall - Clocks are moved back. For Daylight Savings Time Beginning in the Spring - Clocks are moved ahead. For [facility], the time of change occurs at 0200 hrs. Time is taken from the server manager. This entry on the patient's chart recognizes the change in time reflected during documentation. Example: 2 entries for vital signs may be charted for 0200 hrs.
[2021-07-29] MEDS: LACTATED RINGERS 1,000 ML 75 ML IV CONT ×2 (02:05→13:16)
[2021-07-29] MEDS: metroNIDAZOLE 500 MG/ISO 100ML 500 MG/100 ML BAG 100 MG IVPB ×3 (07:52→20:19)
[2021-07-29] MEDS: LACTULOSE 20 GM/30 ML UDC PO ×2 (07:53→12:10)
[2021-07-29] MEDS: PANTOPRAZOLE SODIUM IV 40 MG VIAL IV PUSH (07:53)
[2021-07-29] MEDS: VENLAFAXINE HCL 37.5 MG TABLET PO (07:53)
[2021-07-29] MEDS: THERAPEUTIC MULTIVITAMINS/MINERALS TAB (*BKC) 1 TABLET PO (07:54)
[2021-07-29] MEDS: METOPROLOL TARTRATE 12.5 MG TABLET PO ×2 (07:54→20:17)
[2021-07-29] MEDS: FLUTICASONE PROP 110 MCG INHALER 12 GM (*SP) 2 PUFF INHALATION ×2 (08:16→20:44)
--- NOTE | 2021-07-29 18:42 | PM.IMPN ---
Progress Note: A&P Assessment and Plan (1) Altered mental status: Qualifiers: Altered mental status type: stupor Qualified Code(s): R40.1 - Stupor Code(s): R41.82 - Altered mental status, unspecified Status: Acute (2) Encephalopathy, hepatic: Code(s): K72.90 - Hepatic failure, unspecified without coma Status: Acute (3) UTI (urinary tract infection): Qualifiers: Hematuria presence: without hematuria Urinary tract infection type: site unspecified Qualified Code(s): N39.0 - Urinary tract infection, site not specified Code(s): N39.0 - Urinary tract infection, site not specified Status: Acute (4) Sepsis: Qualifiers: Sepsis acute organ dysfunction status: unspecified Sepsis type: sepsis due to unspecified organism Qualified Code(s): A41.9 - Sepsis, unspecified organism Code(s): A41.9 - Sepsis, unspecified organism Status: Acute (5) Thrombocytopenia: Code(s): D69.6 - Thrombocytopenia, unspecified Status: Acute (6) DVT prophylaxis: Code(s): Z29.9 - Encounter for prophylactic measures, unspecified Status: Acute Assessment and Plan: SCDs (7) Cholelithiasis with cholecystitis: Code(s): K80.10 - Calculus of gallbladder with chronic cholecystitis without obstruction Status: Acute (8) Hypokalemia: Code(s): E87.6 - Hypokalemia Status: Acute Assessment and Plan: Replace (9) Bacteremia: Code(s): R78.81 - Bacteremia Status: Acute (10) Anemia: Code(s): D64.9 - Anemia, unspecified Status: Acute Additional Plan 07/24/21 Altered mental status likely related to sepsis, UTI could also be related to hepatic encephalopathy as her ammonia levels are elevated -continue treat UTI -continue lactulose -maintenance IV fluids -patient is definitely more awake and alert this morning opens remains confused disoriented CT head within encephalomalacia of the right frontal lobe and right cerebellum which appears chronic Hepatic encephalopathy, ammonia levels are elevated -patient has been placed on lactulose t.i.d. -will increase dose if patient does not have bowel movements UA indicative of UTI -urine cultures have been obtained and pending -continue Levaquin Patient presented with altered mental status tachycardia, hypotension -was given 2 L IV fluids, given additional 500 mL of Hespan this morning -blood pressures have been stable, remains tachycardic white count is down to 4.4 -maintain mean arterial pressures greater than 65 mmHg -has not been requiring any pressors at this time -lactic acid trending down, will trend lactic acid levels -continue antibiotics Levaquin Blood culture positive in coagulase negative times time I will add vancomycin still continues to remain febrile Patient has been thrombocytopenic in the past, could be related to cirrhosis, hepatitis-C, liver dysfunction -now could be related to sepsis -no signs of bleeding, will continue to monitor Thrombocytopenia worsened compared to previous levels likely due to sepsis Check DIC panel CT abdomen and pelvis with cholelithiasis with gallbladder distention and possible gallbladder wall thickening. Underlying cirrhosis and portal hypertension might relate the findings On Levaquin will add Flagyl GI anaerobic coverage General surgery on board Coagulase-negative staphylococci Will repeat blood culture Due to persistent fever will start with vancomycin IVHemoglobin has dropped from 13 at admission to 9.6 some of them could be from hemodilution due to IV hydration. No signs of active bleeding ongoing will continue to monitor 07/25/21 To transferred out of ICU to step-down Receiving treatment for hyperkalemia, bacteremia??, cholelithiasis/cholecystitis Vancomycin for bacteremia levo/flagyl for GI coverage c/s Dr Jacobs in am cont IV fluids am labs. per surgeon No plans for surgical intervention. pt is considered ext
--- NOTE | 2021-07-29 18:51 | WPDCN ---
Assessment and Plan Additional Plan Assessment and plan 1. Staph epidermidis [MRSE] bacteremia with 2/2 set blood cultures being positive most likely true infection. Repeat blood cultures are so far negative. Currently patient is on vancomycin estimating day 4 of 10 days. Continue 6 more days of vancomycin. Most likely source of infection cutaneous. 2. Cirrhosis of the liver 3. Leukopenia and thrombocytopenia most likely secondary to underlying cirrhosis. 4. Dementia without behavioral disturbance. HPI Data of Consult Date/Time: 07/29/21 18:51 Requesting Physician: Rosendo Valdez MD Primary Care Provider: BHANU MENDOZA Consult Narrative Narrative: Cassi Alves is a 66 year old female with significant past medical history for cirrhosis of the liver, hepatitis-C, COPD, emphysema, dementia, seizure disorder, polysubstance abuse including alcohol and cocaine was admitted to the hospital with change in mental status on July 22, 2021. Blood cultures x2 set was positive for Staph epidermidis. I was requested to see her for recommendation of duration of therapy. Patient is currently alert and awake but poor historian therefore history is obtained from the chart. Review of Systems Review of Systems: All systems reviewed & are unremarkable except as noted in HPI and below (HPI) [facility] Past Medical History Medical History (Updated 07/24/21 @ 15:27 by George Bowman MD) Anxiety Cervical cancer Cirrhosis COPD (chronic obstructive pulmonary disease) Dementia Depression Diabetes Endocarditis Hepatitis C Humerus fracture Scoliosis Seizure Surgical History Surgical History (Updated 07/23/21 @ 12:24 by BON Smith) H/O LEEP History of delivery Family History Family History Father Hypertension Social History Social History Smoking status: Former smoker Tobacco type: cigarettes Second hand tobacco smoke exposure: No Alcohol intake: former Substance use: unknown Gender identity (if verbalized by the patient): Female Spiritual care concerns: No Meds Home Medications and Allergies Home Medications Medication Instructions Recorded Confirmed Type albuterol sulfate 2 puff INHALATION Q4H PRN 07/22/21 07/22/21 History fluticasone propionate [Flovent 1 inh INHALATION BID 07/22/21 07/22/21 History Diskus] lactulose 30 ml PO TID 07/22/21 07/22/21 History metoprolol tartrate 25 mg PO BID 07/22/21 07/22/21 History multivit with min-folic acid 1 tablet PO DAILY 07/22/21 07/22/21 History [Adult One Daily Multivitamin] omeprazole 20 mg PO DAILY 07/22/21 07/22/21 History trazodone 50 mg PO HS 07/22/21 07/22/21 History venlafaxine 37.5 mg PO DAILY 07/22/21 07/22/21 History Allergies Allergy/AdvReac Type Severity Reaction Status Date / Time Penicillins Allergy Severe Hives / Verified 08/17/20 17:05 Red Face prednisone Allergy Intermediate Other Verified 08/17/20 17:05 citalopram Allergy Mild Unknown Verified 08/17/20 17:05 Sulfa (Sulfonamide Allergy Mild Rash Verified 08/17/20 17:05 Antibiotics) diclofenac AdvReac Intermediate N/V Verified 08/17/20 17:05 tramadol AdvReac Unknown VOMITING Verified 07/23/21 07:28 Vital Signs Vital Signs - 24 hr 07/28/21 20:00 07/28/21 22:00 07/29/21 00:00 Temperature 36.5 C Pulse Rate 114 H 107 H 80 Respiratory Rate 18 18 Blood Pressure 106/73 Pulse Oximetry 97 97 07/29/21 04:00 07/29/21 05:00 07/29/21 07:54 Temperature 36.6 C Pulse Rate 75 81 80 Respiratory Rate 18 Blood Pressure 100/66 Pulse Oximetry 92 07/29/21 08:00 07/29/21 12:00 07/29/21 13:00 Temperature 36.2 C L Pulse Rate 72 81 79 Respiratory Rate 18 20 Blood Pressure 92/58 L Pulse Oximetry 92 97 07/29/21 16:00 Temperature Pulse Rate 80 Respiratory Rate Blood Pressure Pulse Oximetry Exam
[2021-07-29] MEDS: traZODone HCL 50 MG TABLET PO (20:17)
[2021-07-30] VITALS (9 sets, daily range): BP systolic 85–110; BP diastolic 55–62; PULSE 71–83; RESP 18–21; TEMP 36.2–36.4; O2SAT 93–95
[2021-07-30 07:07] LABS: Estimated CRCL calculation 104 ml/min; Estimated Glomerular Filt Rate > 60
[2021-07-30] MEDS: metroNIDAZOLE 500 MG/ISO 100ML 500 MG/100 ML BAG 100 MG IVPB ×2 (07:32→14:11)
[2021-07-30] MEDS: FLUTICASONE PROP 110 MCG INHALER 12 GM (*SP) 2 PUFF INHALATION (08:50)
[2021-07-30] MEDS: THERAPEUTIC MULTIVITAMINS/MINERALS TAB (*BKC) 1 TABLET PO (08:56)
[2021-07-30] MEDS: PANTOPRAZOLE SODIUM IV 40 MG VIAL IV PUSH (08:56)
[2021-07-30] MEDS: LACTULOSE 20 GM/30 ML UDC PO ×2 (08:56→12:16)
[2021-07-30] MEDS: VENLAFAXINE HCL 37.5 MG TABLET PO (08:56)
[2021-07-30] MEDS: METOPROLOL TARTRATE 12.5 MG TABLET PO (08:56)
--- NOTE | 2021-07-30 11:41 | PCNFU ---
Nutrition Follow-Up Complete: Predicted suboptimal oral intake related to encephalopathy as evidenced by clear liquid diet order. Goal: Patient to meet estimated nutritional needs. Patient is progressing towards goal. No new goal at this time. Pt current nutrition is a regular diet with ensure compact BID providing an additional 220 calories and 9 grams of protein. Last recorded weight is 87.5 kg. Recommend re-weighing patient prior to discharge to ensure no significant weight loss. Bowel Motility: + BM 07/28/2021 Labs Reviewed: Hgb 10.4, Hct 32.7, Alb 2.8, Cr 0.4, Glu 142 Meds Noted: Albuterol. Lactulose, Flovent, Lopressor, Multivitamins/Calcium, Levofloxacin, Desyrel, Vancomycin Hcl, Trazodone Hcl, Effexor Additional Notes: Checked in with patient. Pt. has been consuming on average 83% of meals ordered. She enjoys ensure compact but prefers vanilla. No skin issues documented. She had no nutritional questions and/or concerns at this time. Follow up in 7 days.
--- NOTE | 2021-07-30 12:14 | WPDINFPN2 ---
Progress Note: A&P Assessment and Plan (1) Bacteremia: Code(s): R78.81 - Bacteremia Status: Acute Assessment and Plan: 1. Staph not aureus bacteremia with infection, skin source 2. Cirrhosis 3. Multiple allergies REC Vanc same, through 08/04/21. Ok discharge planning. Not an ideal candidate for home IV therapy. Call if Qs Subjective Date/time seen: 07/30/21 12:14 Interval history: tired of being here. No abd pain nausea fever Exam Narrative: afebrile Const: General: no acute distress Eyes: General: appearance normal, both eyes and all related structures Resp: Effort & Inspection: normal respiratory effort Auscultation: clear to auscultation bilaterally Cardio: Rate: regular rate Rhythm: regular rhythm Heart sounds: no murmurs GI: Inspection: non-distended GI Palp: Yes Soft to palpation and No Tenderness to palpation present (GI) Objective Data Vital Signs Vital Signs: Vital Signs - 24 hr 07/29/21 13:00 07/29/21 16:00 07/29/21 18:00 Temperature 36.2 C L 36.3 C L Pulse Rate 79 80 110 H Respiratory Rate 20 20 Blood Pressure 92/58 L 110/78 Pulse Oximetry 97 99 07/29/21 20:00 07/29/21 20:17 07/29/21 20:44 Temperature Pulse Rate 111 H 104 H 105 H Respiratory Rate 20 Blood Pressure Pulse Oximetry 99 07/30/21 00:00 07/30/21 04:00 07/30/21 06:00 Temperature 36.2 C L Pulse Rate 75 71 81 Respiratory Rate 18 Blood Pressure 93/59 L Pulse Oximetry 93 07/30/21 08:00 07/30/21 08:56 07/30/21 12:00 Temperature Pulse Rate 72 83 74 Respiratory Rate Blood Pressure Pulse Oximetry Intake/Output Intake/Output: Intake & Output 07/28/21 07/29/21 07/29/21 07/30/21 00:59 00:59 23:59 23:59 Intake Total 340 Output Total Balance 340 Meds/Results Medications: Active Medications Generic Name Dose Route Start Last Admin Trade Name Freq PRN Reason Stop Dose Admin Acetaminophen 650 mg 07/24/21 12:18 07/24/21 23:03 Acetaminophen 325 Mg Tablet PO 650 mg Q6H PRN Administration Mild Pain (1-3) or Fever Albuterol 2 puff 07/23/21 00:08 Albuterol Sulfate (*Sp) Aerosol 1 Puff INHALATION Q4H PRN Shortness Of Breath Or Wheezing Fluticasone Propionate 2 puff 07/23/21 08:00 07/30/21 08:50 Fluticasone Prop 110 Mcg Inhaler 12 Gm (*Sp) INHALATION 2 puff Q12HRT ELICIA Administration Levofloxacin/Dextrose 750 mg in 150 mls @ 100 mls/hr 07/23/21 18:00 07/29/21 18:35 Levaquin 750 Mg/D5w 150 Ml IVPB Infused Q24H ELICIA Infusion Metronidazole 500 mg in 100 mls @ 100 mls/hr 07/24/21 15:05 07/30/21 07:32 Flagyl 500 Mg/Iso Soln 100 Ml IVPB 100 mls/hr Q8HR ELICIA Administration Vancomycin HCl 1,500 mg in 500 mls @ 333.333 mls/hr 07/26/21 04:00 07/30/21 03:05 Vancomycin 1,500 Mg/D5w 500 Ml IVPB 333 mls/hr Q12H ELICIA Administration Lactulose 20 gm 07/23/21 09:00 07/30/21 08:56 Lactulose 20 Gm/30 Ml Udc PO 08/22/21 08:59 20 gm TID ELICIA Administration Metoprolol Tartrate 12.5 mg 07/24/21 21:00 07/30/21 08:56 Metoprolol Tartrate 12.5 Mg Tablet PO 12.5 mg Q12HR ELICIA Administration Multivitamins/Calcium 1 tablet 07/23/21 09:00 07/30/21 08:56 Therapeutic Multivitamins/Minerals Tab (*Bkc) PO 1 tablet DAILY ELICIA Administration Pantoprazole Sodium 40 mg 07/23/21 09:00 07/30/21 08:56 Pantoprazole Sodium Iv 40 Mg Vial IV PUSH 40 mg QAM ELICIA Administration Trazodone HCl 50 mg 07/23/21 21:00 07/29/21 20:17 Trazodone Hcl 50 Mg Tablet PO 50 mg HS ELICIA Administration Venlafaxine HCl 37.5 mg 07/23/21 08:00 07/30/21 08:56 Venlafaxine Hcl 37.5 Mg Tablet PO 37.5 mg DAILY@0800 ELICIA Administration Radiology Results: ITS Impressions Chest X-Ray 07/22/21 14:14 IMPRESSION: Cardiomegaly, pulmonary vascular crowding. Head CT 07/22/21 14:43 IMPRESSION: 1. No acute intracranial abnormality identified. 2: Encephalomalacia of the rig
[2021-07-30] MEDS: LIDOCAINE HCL 1% LOCAL INJ 2 ML AMPUL 5 ML INFILTRATE (12:40)
[2021-07-30] MEDS: SALINE LOCK FLUSH 10 ML IV PUSH (14:11)
--- NOTE | 2021-07-30 14:57 | PCNSR ---
On 07/30/21, the student, Shameka Michael, provided care and completed [facility] documentation on this patient. I have reviewed the student's documentation and agree with the findings.
--- NOTE | 2021-07-30 16:19 | PM.DS ---
DS: Admitting Diagnosis Discharge Date 07/30/21 Admitting Diagnosis Altered Mental Status DS: Discharge Diagnosis Discharge Diagnosis (1) Altered mental status: Qualifiers: Altered mental status type: stupor Qualified Code(s): R40.1 - Stupor Code(s): R41.82 - Altered mental status, unspecified Status: Acute (2) Encephalopathy, hepatic: Code(s): K72.90 - Hepatic failure, unspecified without coma Status: Acute (3) UTI (urinary tract infection): Qualifiers: Hematuria presence: without hematuria Urinary tract infection type: site unspecified Qualified Code(s): N39.0 - Urinary tract infection, site not specified Code(s): N39.0 - Urinary tract infection, site not specified Status: Acute (4) Sepsis: Qualifiers: Sepsis acute organ dysfunction status: unspecified Sepsis type: sepsis due to unspecified organism Qualified Code(s): A41.9 - Sepsis, unspecified organism Code(s): A41.9 - Sepsis, unspecified organism Status: Acute (5) Thrombocytopenia: Code(s): D69.6 - Thrombocytopenia, unspecified Status: Acute (6) Cholelithiasis with cholecystitis: Code(s): K80.10 - Calculus of gallbladder with chronic cholecystitis without obstruction Status: Acute (7) Hypokalemia: Code(s): E87.6 - Hypokalemia Status: Acute (8) Bacteremia: Code(s): R78.81 - Bacteremia Status: Acute (9) Anemia: Code(s): D64.9 - Anemia, unspecified Status: Acute DS: Summary Hospital Course Reason for hospitalization: 66yo female with cirrhosis brought in from the senior living with altered mental status. Please see H&P for details Hospital Course: Patient was found by EMS at the senior living to be awake and alert but nonverbal. She was brought to the emergency room evaluation. She was febrile and tachycardic. She was leukopenic but this is not uncommon for the patient felt to be related to her cirrhosis. She also had thrombocytopenia again felt to be more chronic. Chest x-ray showed cardiomegaly with pulmonary vascular crowding. Brain CT showed no acute intracranial abnormalities but did again show the encephalomalacia in the right cerebellum which is chronic. The patient did have encephalomalacia in the right frontal lobe which is new from 1 year ago but not acute. CT of the abdomen pelvis showed cholelithiasis with gallbladder distention and possible gallbladder wall thickening as well as cirrhosis of the liver and portal venous hypertension. Clinically however it was felt that acute cholecystitis was less likely be the etiology of her current condition. General surgery was consulted with no plans for surgical intervention. Urine culture grew coag-negative staph. Both blood cultures also grew coag-negative staph. She started on broad-spectrum IV antibiotics. Repeat blood cultures were negative. Repeat urine culture negative. Ammonia level climbed to 63 before trending back downward. AST and ALT remain normal. Bilirubin was 4.3 on admission but this normalized. Alkaline phosphatase level remained essentially normal. Bilirubin level was not fractionated. Id was consulted and felt the source of the positive blood cultures was cutaneous. Patient had a midline placed for IV antibiotics at discharge. Patient overall did well due to be discharged back to the senior living on 07/30/2021. He was noted that her blood pressure was low at times but this was felt more likely related to his cirrhosis and her metoprolol dose was adjusted. Status at Discharge Cognitive/behavioral status at discharge: stable Time Spent with Patient Time attestation: Total time spent providing and/or coordinating discharge services: 34 minutes Time spent: Greater than 30 minutes Exam Narrative: AF 97.5 100/62 79 21 95% ra Gen - NARD Chest - few basilar inspiratory crackles CV - RRR S1/S2 Abd - Soft, NT/ND, Positive
== END 2021-07-30 18:15 | DRG 720 ==
LOC: ANHED 19:20 → ANHICU 07-24 09:51 → ANH3MEDSUR 07-29 10:08 → ANHICU 08-01 09:51 → ANHIMU 08-01 09:51
PROVIDERS: Internal Medicine; Admitting Provider Hospitalist; Emergency Provider Emergency Medicine; Visit Provider Hospitalist
DX: A41.1 Sepsis due to other specified staphylococcus (principal); D69.6 Thrombocytopenia, unspecified; K80.10 Calculus of gallbladder with chronic cholecystitis without obstruction; M41.9 Scoliosis, unspecified; F03.90 Unspecified dementia, unspecified severity, without behavioral disturbance, psychotic disturbance, mood disturbance, and anxiety; D64.9 Anemia, unspecified; E11.9 Type 2 diabetes mellitus without complications; N39.0 Urinary tract infection, site not specified; E87.6 Hypokalemia; K72.90 Hepatic failure, unspecified without coma; F41.9 Anxiety disorder, unspecified; J44.9 Chronic obstructive pulmonary disease, unspecified; K74.60 Unspecified cirrhosis of liver; G40.909 Epilepsy, unspecified, not intractable, without status epilepticus; Z86.19 Personal history of other infectious and parasitic diseases; Z85.41 Personal history of malignant neoplasm of cervix uteri; Z87.891 Personal history of nicotine dependence
CPT/HCPCS: 36415; 36569; 70450; 71045; 74177; 80053; 80202; 80307; 81001; 82140; 82550; 82565; 83605; 83690; 83735; 83880; 84100; 84484; 85025; 85027; 85049; 85055; 85380; 85384; 85610; 85730; 86140; 87040; 87077; 87086; 87088; 87186; 93005; 94640; 96361; 96365; 96368; 97110; 97162; 97165; 99285; A9270; C1751; C9113; J0131; J1100; J1885; J1956; J2060; J2405; J2704; J3370; J3475; J3480; J7120; Q9967

== ENCOUNTER 2021-09-03 06:31 | Inpatient (IN) | payer OTHER, SELFPAY ==
[2021-09-03] VITALS (39 sets, daily range): BP systolic 94–139; BP diastolic 60–88; PULSE 63–83; RESP 12–27; TEMP 36.1–36.4; O2SAT 95–100; BMI 25.9
--- NOTE | ~2021-09-03 | XR_ITS ---
EXAMINATION: XR abdomen/kub 1V DATE: 09/18/2021 13:31 INDICATION: Abdominal distention. TECHNIQUE: A supine view of the abdomen was obtained. COMPARISON: Small bowel series 09/14/2021, CT abdomen and pelvis 09/07/2021 FINDINGS: The small bowel is normal in caliber. There is gaseous distention of the colon. There are p ins in proximal left femur. IMPRESSION: 1. Gaseous distention of the colon, likely adynamic ileus. Reviewed, dictated and finalized at location B. CLIPPER TENDER
--- NOTE | ~2021-09-03 | XR_ITS ---
EXAMINATION: XR chest PICC line DATE: 09/09/2021 11:51 INDICATION: Central line placement. TECHNIQUE: A single frontal view of the chest was obtained. COMPARISON: Chest 2 view 09/03/2021, chest CT 09/07/2021 FINDINGS: There are airspace opacities in the lower lung zones. No pleural effusion or pneumothorax. The heart size is normal. The nasogastric tube tip is in the stomach. A left upper extremity peripher ally inserted central venous catheter (PICC) is seen with tip at the superior cavoatrial junction. IMPRESSION: 1. PICC tip at the superior cavoatrial junction. 2. Stable airspace opacities in the lower lung zones, consistent with atelectasis versus pneumonia. Reviewed, dictated and finalized at location A. PLACER IMPRESSION: 1. PICC tip at the superior cavoatrial junction. 2. Stable airspace opacities in the lower lung zones, consistent with atelectas is versus pneumonia.
--- NOTE | ~2021-09-03 | CT_ITS ---
EXAMINATION: CT chest abdomen pelvis w con DATE: 09/07/2021 16:17 INDICATION: Abdominal distention. Nausea and vomiting. TECHNIQUE: Computed tomography (CT) of the chest, abdomen, and pelvis was performed with 100 cc Omnip aque 350 intravenous contrast. Automated exposure control and iterative reconstruction technique were employed. Exam dose: 1311.97 mGy-cm total exam DLP. COMPARISON: 09/03/2021 AP chest 07/22/2021 CT abdomen pelvis FINDINGS: CHEST CT: There are patchy bilateral pulmonary infiltrates and/atelectasis, most prominent in the lower lobes a nd posterior right upper lobe. No pleural effusion. Borderline heart size. No pericardial effusion. No thoracic aortic aneurysm or dissection. No hilar or mediastinal mass lesion or lymphadenopathy. ABDOMEN/PELVIS CT: Paraesophageal and upper abdominal varices are noted in addition to cirrhosis of the liver and mild s plenomegaly. Small sliding hiatal hernia. There is some fluid within the thoracic esophagus. Cholelithiasis is noted. No gallbladder wall thickening or pericholecystic fluid or fat stranding. No hepatic, splenic, pancreatic, and adrenal or suspicious renal space occupying mass lesion is evide nt. 12 mm left renal cyst. No urinary tract calculus or hydroureteronephrosis. Normal caliber of the abdominal aorta; no abdominal aortic aneurysm. No intraperitoneal or retroperit gallardo or pelvic mass lesion or adenopathy is noted. Mural thrombus is noted in the superior mesenteric vein and to a greater extent the portal vein, with out occlusion. There is minimal ascites. There are dilated small bowel segments up to 3.7 cm diameter with air-fluid levels and with fecal-lik e contents in the more distal dilated small bowel. The transition zone in the lower mid abdomen and d ecompression of the distal small bowel. The findings suggest chronic distal partial small bowel obstr uction. Small fluid levels and gaseous distention of the colon are noted. No intraperitoneal free air. There is severe degenerative disc disease in the lower cervical spine. There is mild to moderate dext roscoliosis of the thoracic spine. There is severe rotatory levoscoliosis of the lumbar spine. There is severe degenerative disc disease of the lumbar spine. There is loss of the interspace and severe irregularity of the opposing vertebral margins at T12-L1, with loss of height of each of these vertebral bodies and approximately 1 cm leftward displacement of L1 with respect to T12. Differential diagnosis includes discitis, osteomyelitis, severe neuropathic change. There is fusion at the L4-5 interspace and partial fusion at the L2-3 interspace. There are 3 pins in the proximal left femur for old left subcapital femoral neck fracture. Osteoarthr itis at the hip joints, especially severe on the left. There are healing fractures of the left superior and inferior pubic rami. IMPRESSION: Chronic partial distal small bowel obstruction Partial thrombosis without occlusion involving the superior mesenteric and to a greater extent portal veins Cirrhosis, gastroesophageal varices, mild splenomegaly Minimal ascites Cholelithiasis Small sliding hiatal hernia, fluid in the esophagus Patchy bilateral pulmonary infiltrates and/atelectasis Extensive degenerative changes of the cervical, thoracic and particularly lumbar spine, prominent rot atory levoscoliosis of the lumbar spine Healing fractures of left superior and inferior pubic rami Pinning of left subcapital femoral neck fracture Bilateral hip osteoarthritis, particularly severe on the left Reviewed, dictated and finalized at Location A. Reviewed, dictated and finalized at location A. E OPERATOR
--- NOTE | ~2021-09-03 | MR_ITS ---
EXAMINATION: MR brain/brain stem wo con EXAM DATE: 09/04/2021 16:16 INDICATION: Altered mental status. Acutely nonverbal. History of seizures. TECHNIQUE: Magnetic resonance imaging (MRI) of the brain/brain stem obtained without contrast. Omeroitt al T1, axial diffusion, gradient echo (T2*), T1, FLAIR sequences obtained. There is no prior study for comparison. FINDINGS: Study is limited due to patient motion. No acute infarction suspected. Right frontal lobe a nd right occipital lobe encephalomalacia. Mild microangiopathy and cerebral atrophy. No evidence of e xtra-axial collection, obstructive hydrocephalus or definite brain mass. IMPRESSION: Limited exam without acute infarction suspected. 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 Reviewed, dictated and finalized at location B. LER HELPER IMPRESSION: Limited exam without acute infarction suspected. Old right frontal , cerebellar infarctions.
--- NOTE | ~2021-09-03 | MR_ITS ---
EXAMINATION: MR lumbar spine wo/w con DATE: 09/08/2021 13:12 INDICATION: Bacteremia. Discitis. TECHNIQUE: Magnetic resonance imaging (MRI) of the lumbar spine was performed without and with 15 mL MultiHance intravenous contrast. Sequences included sagittal T2-weighted FSE, sagittal T2-weighted FS FSE, coronal STIR FSE, and sagittal and axial T1-weighted FSE. Postcontrast sequences included axial T2-weighted FSE and axial and sagittal T1-weighted FS FSE. COMPARISON: CT abdomen and pelvis 09/07/2021, 07/22/2021 FINDINGS: There is 45 degrees levoscoliosis of thoracolumbar spine. There is a healing subacute insuf ficiency fracture of left sacral ala. There is 13 mm rightward subluxation of T12 on L1. There is chr onic 3/5 loss of height of T12 vertebral body at 2/5 loss of height of L1 vertebral body. There is fu ml of T12 and L1 vertebral bodies. There is interbody fusion at L2-L3 and L4-L5. There is moderatel y decreased disc height at L1-L2 and severely decreased disc height at L3-L4. The distal spinal cord signal intensity is normal. The conus medullaris is at L1. There is peripheral displacement of the ca uda equina at L5, consistent with arachnoiditis. The following disc levels are specifically discussed : T12-L1: There is ankylosis of the facet joints with severe hypertrophy. There is moderate right and m ild left neural foraminal stenosis. There is moderate central canal stenosis. L1-L2: The disc does not extend beyond the endplate margin. There is ankylosis of the facet joints wi th severe right and mild left hypertrophy. There is mild right neural foraminal stenosis. There is no central canal stenosis. L2-L3: There is right foraminal protrusion. There is ankylosis of the facet joints with moderate hype rtrophy. There is moderate neural foraminal stenosis. There is mild central canal stenosis. L3-L4: The disc is bulging and has an annular fissure. There is severe bilateral facet joint osteoart hritis. There is mild bilateral neural foraminal stenosis. There is mild central canal stenosis. L4-L5: There is ankylosis of the facet joints with severe hypertrophy. There is mild bilateral neural foraminal stenosis. There is mild central canal stenosis. L5-S1: The disc is bulging. There is severe bilateral facet joint osteoarthritis. There is mild right and moderate left neural foraminal stenosis. There is no central canal stenosis. IMPRESSION: 1. No evidence of discitis. 2. Thoracolumbar levoscoliosis. 3. Anterior fusion at T12-L1, L2-L3, and L4-L5 and posterior fusion from T12 to L3 and at L4-L5. 4. Severe lumbar spondylosis. 5. Arachnoiditis. 6. Subacute insufficiency fracture of left sacral ala. Reviewed, dictated and finalized at location A. ET SEWER
--- NOTE | ~2021-09-03 | XR_ITS ---
XR abdomen NG/feed tube insert DATE: 09/07/2021 22:02 INDICATION: NG tube placement TECHNIQUE: Portable AP views on at 2151 and 2152 hours COMPARISON: None FINDINGS: NG tube is present in the distal body of the stomach. Prominent gaseous distention of the colon and small bowel. IMPRESSION: . NG tube in distal stomach Reviewed, dictated and finalized at Location A. Reviewed, dictated and finalized at location A. ICAL INFORMATICIST IMPRESSION: . NG tube in distal stomach
--- NOTE | ~2021-09-03 | XR_ITS ---
EXAMINATION: XR chest 1V portable DATE: 09/11/2021 12:55 INDICATION: Tachycardia. TECHNIQUE: A single frontal view of the chest was obtained. COMPARISON: Chest single view 09/09/2021, chest CT 09/07/2021 FINDINGS: There are airspace opacities in the lower lung zones. No pleural effusion or pneumothorax. The heart size is normal. A left upper extremity peripherally inserted central venous catheter (PICC) is seen with tip at superior cavoatrial junction. IMPRESSION: 1. Stable airspace opacities in the lower lung zones, consistent with pneumonia. Reviewed, dictated and finalized at location A. ANALYTICS IMPRESSION: 1. Stable airspace opacities in the lower lung zones, consistent with pneumonia .
--- NOTE | ~2021-09-03 | US_ITS ---
EXAMINATION: US paracentesis abd w/image DATE: 09/20/2021 15:27 INDICATION: Ascites. TECHNIQUE: The procedure and its risks and benefits were discussed with the patient. Potential risks discussed included bleeding and infection. The skin was prepped and draped in sterile fashion. 1% lid ocaine was used for local anesthesia. Under ultrasound guidance, a 5 Fr catheter with trochar was adv anced into the ascites in the left lower quadrant. Fluid was aspirated into vacuum bottles. The asia ter was removed, and a dressing was applied. There were no immediate complications. FINDINGS: Ultrasound images demonstrate ascites and the catheter within the fluid. IMPRESSION: 1. Successful ultrasound-guided paracentesis yielding 3600 mL of cloudy yellow fluid. Reviewed, dictated and finalized at location A. THCARE ADMINISTRATION INTERNSHIP
--- NOTE | ~2021-09-03 | XR_ITS ---
SMALL BOWEL SERIES ONLY INDICATION: Ileus. TECHNIQUE: Serial plain films and fluoroscopic spot films are performed following oral demonstration of thin barium. COMPARISON: CT dated 09/07/2021 FINDINGS: Barium was followed sequentially through the small bowel. There are multiple segments of pe rsistent small bowel narrowing with mucosal irregularity and intervening areas of small bowel dilatio n. There is irregular haustral markings in the proximal aspect of the right:. Transit time to the col on is less than 2 hours.. IMPRESSION: 1: Multiple segments of intervening small bowel narrowing and dilation with mucosal irregularity. No significant obstruction of flow of contrast to the colon. Transit time is less than 2 hours. There i s haustral irregularity in the proximal colon. Most likely considerations include inflammatory bowel disease (i.e. Crohn's disease) and infection. Reviewed, dictated and finalized at location A. AND BEVERAGE MANAGER IMPRESSION: 1: Multiple segments of intervening small bowel narrowing and dilation with mu cosal irregularity. No significant obstruction of flow of contrast to the colon . Transit time is less than 2 hours. There is haustral irregularity in the prox imal colon. Most likely considerations include inflammatory bowel disease (i.e. Crohn's disease) and infection.
--- NOTE | ~2021-09-03 | XR_ITS ---
XR chest ET placement DATE: 09/23/2021 22:59 INDICATION: Intubation; confirm ETT placement TECHNIQUE: Portable AP chest on 09/23/2021 at 2248 hours COMPARISON: 09/23/2021 portable AP chest at 2158 hours FINDINGS: ET tube tip is situated at the ej, directed toward the right mainstem bronchus. Reposit ioning 2.5 to 4.5 cm proximally is recommended. There is pulmonary vascular prominence and redistribution and patchy infiltrate in the mid and lower lung zones, especially left lower lobe, and possible small pleural effusions. Pulmonary edema and pne umonia are considerations. NG tube in stomach. Diffuse osteopenia. There is diffuse osteopenia. There is levoscoliosis of the thoracic spine and dextroscoliosis and deg enerative change of the lumbar spine. There is osteoarthritic change at the right glenohumeral joint with suggestion of Hill-Sachs deformity of the right humeral head. IMPRESSION: ET tube tip at ej; repositioning proximally approximately 2.5 to 4.5 cm is recommende d Congestive changes, bilateral infiltrates suggesting pulmonary edema and/or pneumonia Reviewed, dictated and finalized at Location A. Reviewed, dictated and finalized at location A. ED FOOD RECONDITIONING INSPECTOR IMPRESSION: ET tube tip at ej; repositioning proximally approximately 2.5 t o 4.5 cm is recommended Congestive changes, bilateral infiltrates suggesting pulmonary edema and/or pne umonia
--- NOTE | ~2021-09-03 | XR_ITS ---
EXAMINATION: XR chest 1V portable DATE: 09/23/2021 22:08 INDICATION: Chest expansion. Foaming at the mouth. TECHNIQUE: A single frontal view of the chest was obtained. COMPARISON: Chest single view 09/22/2021, CT abdomen and pelvis 09/21/2021 FINDINGS: Again seen is mild elevation of right hemidiaphragm. There are airspace opacities in all eddie ng zones bilaterally with a perihilar predominance. There are small pleural effusions. No pneumothora x. Cardiomegaly is noted. IMPRESSION: 1. Airspace opacities in the lungs with a perihilar predominance, consistent with pulmonary edema or less likely pneumonia. 2. Small pleural effusions. 3. Cardiomegaly. Reviewed, dictated and finalized at location A. NERY OPERATOR REFORMING UNIT IMPRESSION: 1. Airspace opacities in the lungs with a perihilar predominance, consistent wi th pulmonary edema or less likely pneumonia. 2. Small pleural effusions. 3. Cardiomegaly.
--- NOTE | ~2021-09-03 | US_ITS ---
EXAMINATION: US carotid duplex BI DATE: 09/03/2021 16:28 INDICATION: Right frontal lobe infarct. TECHNIQUE: Grayscale, color Doppler, and pulsed Doppler images of the cervical carotid arteries were obtained. The degree of vessel stenosis is placed in one of the following categories: normal, <50%, 5 0-69%, >=70% but less than near-occlusion, near-occlusion, or total occlusion. Note that percent sten osis relative to normal distal artery lumen diameter is indirectly measured from velocity measurement s as described by Woody, et al. Radiology 2003; [id number]. COMPARISON: None. FINDINGS: RIGHT: The right common carotid artery (CCA) peak systolic velocity (PSV) is 90 cm/s. The right internal car otid artery (ICA) PSV is 40 cm/s. The right ICA end-diastolic velocity (EDV) is 14 cm/s. The right IC A/CCA PSV ratio is 0.4. Grayscale and color Doppler images yield an estimate of <50% diameter reducti on from plaque in the ICA. There is antegrade flow in the right vertebral artery. LEFT: The left CCA PSV is 79 cm/s. The left ICA PSV is 61 cm/s. The left ICA EDV is 18 cm/s. The left ICA/C CA PSV ratio is 0.8. Grayscale and color Doppler images yield an estimate of <50% diameter reduction from plaque in the ICA. There is antegrade flow in the left vertebral artery. IMPRESSION: 1. <50% stenosis in the right internal carotid artery. 2. <50% stenosis in the left internal carotid artery. Reviewed, dictated and finalized at location A. SPOOLER TENDER
--- NOTE | ~2021-09-03 | US_ITS ---
EXAMINATION: US venous doppler [facility] DATE: 09/21/2021 14:42 INDICATION: Asymmetric lower limb edema. TECHNIQUE: Grayscale ultrasound images without and with compression and Doppler ultrasound images of the bilateral lower extremity veins were obtained. COMPARISON: Ultrasound 09/12/2021 FINDINGS: The visualized portions of right common femoral vein, profunda (deep) femoral vein, femoral vein, pop liteal vein, peroneal veins, posterior tibial veins, and greater saphenous vein outflow are patent. The visualized portions of left common femoral vein, profunda femoral vein, femoral vein, popliteal v ein, peroneal veins, posterior tibial veins, and greater saphenous vein outflow are patent. IMPRESSION: 1. No deep venous thrombosis. Reviewed, dictated and finalized at location A. R MACHINE BACK TENDER
--- NOTE | ~2021-09-03 | XR_ITS ---
XR UGI w small bowel DATE: 09/14/2021 11:46 INDICATION: Partial small bowel obstruction TECHNIQUE: Single contrast barium upper gastrointestinal series with small bowel follow-through 1.2 minutes fluoroscopy time 224.725 DAP 41 images COMPARISON: 09/10/2021 small bowel follow-through 09/07/2021 CTA chest abdomen pelvis 07/22/2021 CT abdomen pelvis FINDINGS: There is a small sliding hiatal hernia. No stricture or intraluminal mass lesion of the eso phagus or stomach or duodenum is detected. There is mild distention of the jejunum and ileum. There is mild mucosal fold thickening in the distal ileum. Contrast material reaches the colon within 2 1/2 hours. IMPRESSION: Nonspecific mild small bowel dilatation and ileal mucosal fold thickening Reviewed, dictated and finalized at Location A. Reviewed, dictated and finalized at location A. R RESOURCE CONSULTANT IMPRESSION: Nonspecific mild small bowel dilatation and ileal mucosal fold pancho england
--- NOTE | ~2021-09-03 | XR_ITS ---
EXAMINATION: XR abdomen obstructive series DATE: 09/08/2021 13:18 INDICATION: Adynamic ileus. TECHNIQUE: Upright and supine views of the abdomen on 3 radiographs were obtained. COMPARISON: CT abdomen and pelvis 09/07/2021 FINDINGS: There are multiple dilated loops of small bowel. There is gaseous distention of the colon. The bladder is distended and contains contrast. There is an old healed fracture of left femoral neck with fixation with 3 screws. The nasogastric tube tip is in the stomach. No free intraperitoneal gas. IMPRESSION: 1. Dilated small bowel and colon, consistent with adynamic ileus. Reviewed, dictated and finalized at location A. ER CONTROL OPERATOR
--- NOTE | ~2021-09-03 | CT_ITS ---
EXAMINATION: CT brain wo [facility] EXAM DATE: 09/03/2021 08:47 INDICATION: ams acutely nonverbal. History of seizures. TECHNIQUE: Spiral CT of the head was performed without contrast. Axial, coronal and sagittal images were reviewed. The dose-length product (DLP) for this examination was 605.33 mGy-cm. The exposure w as tailored according to patient size, and iterative reconstruction (ASIR) was used as additional dos e reduction technique. Comparison is made to prior examination from 07/22/2021, 08/17/2020. FINDINGS: There is small to moderate-sized region of right cerebellar encephalomalacia, in location o f a previously seen hemorrhage last year which has resolved. There is moderate-sized region of right frontal lobe encephalomalacia, was present in June but new compared to last year. Appearance is co nsistent with an old anterior cerebral artery distribution infarction. There is mild microangiopathy and atrophy. No acute intracranial hemorrhage, extra-axial collections, obstructive hydrocephalus or suspicion of brain mass. Mastoid air cells and the visualized sinuses are aerated. The soft tissue is unremarkable. IMPRESSION: 1. Right frontal and right cerebellar encephalomalacia. 2. Mild age-related intracranial findings. Reviewed, dictated and finalized at location B. ED OPERATOR
--- NOTE | ~2021-09-03 | XR_ITS ---
EXAMINATION: XR chest 1V EXAM DATE: 09/03/2021 08:48 INDICATION: Transient alteration of awareness. TECHNIQUE: Portable AP frontal chest x-ray was obtained. Comparison is made to prior examination from 07/22/2021. FINDINGS: Linear left midlung zone atelectasis/scarring. The lungs are otherwise clear. There are no pleural effusions. Cardiomegaly. Pulmonary vascular congestion. There is no pneumothorax suspected . The bones and soft tissues are unremarkable. IMPRESSION: Cardiomegaly, pulmonary vascular congestion. Reviewed, dictated and finalized at location B. E MARKER SMALL ARMS
--- NOTE | ~2021-09-03 | MR_ITS ---
EXAMINATION: MR thoracic spine wo/w con DATE: 09/08/2021 13:12 INDICATION: Discitis. Bacteremia. TECHNIQUE: Magnetic resonance imaging (MRI) of the thoracic spine was performed without and with 15 m L MultiHance intravenous contrast. Sequences included sagittal and axial T2-weighted FSE, sagittal T2 -weighted FS FSE, and sagittal and axial T1-weighted FSE. Postcontrast sequences included sagittal an d axial T1-weighted FS FSE. COMPARISON: Thoracic spine CT 10/13/2017, chest CT 09/07/2021 FINDINGS: There is 21 degrees dextroscoliosis of thoracic spine. There is fusion of the vertebral bod ies at T12-L1 with chronic height loss of the vertebral bodies. There is mild chronic anterior wedgin g of T7 vertebral body. There is mildly decreased disc height at T9-T10 and T10-T11. The discs do not extend beyond the endplate margins. There is multilevel facet joint osteoarthritis, severe on the ri ght at T11-T12 and severe on the left from T9-T10 through T11-T12. There is mild neural foraminal yuniel nosis on the right at T10-T11 and on the left at T9-T10, T10-T11, and T11-T12. There is mild central canal stenosis at T11-T12. The spinal cord signal intensity is normal. IMPRESSION: 1. No evidence of discitis. 2. Mild thoracic spondylosis. 3. Thoracic dextroscoliosis. Reviewed, dictated and finalized at location A. EWATER DESIGN ENGINEER
--- NOTE | ~2021-09-03 | CT_ITS ---
EXAMINATION: CT abdomen pelvis wo con EXAM DATE: 09/21/2021 14:49 INDICATION: Abdominal distention, diarrhea, n/v. TECHNIQUE: Spiral CT of the abdomen and pelvis was performed without contrast. Axial, coronal and sag ittal images were reviewed. The dose-length product (DLP) for this examination was 1270.20 mGy-cm. The exposure was tailored according to patient size (auto mA exposure control), and iterative reconst ruction (ASIR) was used as additional dose reduction technique. Comparison is made to prior examinati on from 09/19/2021. FINDINGS: There is cirrhosis, portal hypertension and splenomegaly. Gastroesophageal varicosities, po rtosystemic shunting. Gallstones. Moderate amount of ascites including and mesenteric edema limiting sensitivity for acute abdominal inflammation. There is colonic fluid, correlate for diarrhea or gastr oenteritis. No pneumatosis, free intraperitoneal gas or dilated small bowel. Appendix is identified a nd normal. No nephrolithiasis or hydronephrosis. Uterus and bladder are unremarkable. There are no osteoblastic or osteolytic lesions identified. Left hip lag screws. Subacute left superi or and inferior rami fractures. Left sacral insufficiency fracture. Severe lumbar levoscoliosis. Card iomegaly. Left basilar granuloma and bibasilar linear atelectasis. Compared to 2 days earlier, no si gnificant interval change. IMPRESSION: 1. No interval change. 2. Liquid stool, correlate for gastroenteritis or diarrhea. 3. Cirrhosis, splenomegaly, portal hypertension and moderate ascites. 4. Subacute left sacral insufficiency fracture and left rami fractures Reviewed, dictated and finalized at location A. PROCESSOR OPERATOR
--- NOTE | ~2021-09-03 | XR_ITS ---
XR abdomen NG/feed tube insert DATE: 09/23/2021 22:59 INDICATION: Orogastric tube placement TECHNIQUE: Portable semiupright AP view on 09/23/2021 at 2250 hours COMPARISON: 09/21/2021 CT abdomen pelvis FINDINGS: Orogastric tube in body of stomach. There is gaseous distention of stomach and colon. There are air bronchograms in the left lower lobe consistent with left lower lobe atelectasis and/or consolidation. There is mild atelectasis at the right lung base. Cardiomegaly. IMPRESSION: Orogastric tube in body of stomach Reviewed, dictated and finalized at Location A. Reviewed, dictated and finalized at location A. L CUTTER
--- NOTE | ~2021-09-03 | US_ITS ---
EXAMINATION:US venous doppler LE BI INDICATION:Tachycardia TECHNIQUE: Multiple grayscale, color flow and Doppler images of the right and left lower extremity de ep venous systems were obtained and reviewed. COMPARISON:10/21/2013 FINDINGS: The common femoral, superficial femoral and popliteal veins demonstrate normal respiratory variation, augmentation and compressibility. Color flow is also seen within the posterior tibial, pe roneal, greater saphenous and profunda veins. Left peroneal vein not well visualized. IMPRESSION: 1: No lower extremity deep venous thrombosis. Reviewed, dictated and finalized at location A. R PLANT INSTALLER
--- NOTE | ~2021-09-03 | XR_ITS ---
EXAMINATION: XR chest 1V portable DATE: 09/22/2021 09:24 INDICATION: Shortness of breath. TECHNIQUE: A single frontal view of the chest was obtained. COMPARISON: Chest single view 09/11/2021, CT abdomen and pelvis 09/21/2021 FINDINGS: The lung volumes are small. There are airspace opacities in the lower lung zones. No pleura l effusion or pneumothorax. The heart size is normal. A left upper extremity peripherally inserted ce ntral venous catheter (PICC) is seen with tip in the superior vena cava. IMPRESSION: 1. Small lung volumes with airspace opacities in the lower lung zones, likely atelectasis. Reviewed, dictated and finalized at location A. E POLISHER IMPRESSION: 1. Small lung volumes with airspace opacities in the lower lung zones, likely a telectasis.
--- NOTE | ~2021-09-03 | CT_ITS ---
EXAMINATION: CT abdomen pelvis wo con DATE: 09/19/2021 18:48 INDICATION: Abdominal distention TECHNIQUE: Computed tomography (CT) of the abdomen and pelvis was performed without intravenous contr ast. The dose-length product (DLP) was 1403.85 mGy-cm. Automated exposure control and iterative recon struction technique were employed. COMPARISON: 09/07/2021 FINDINGS: Minimal dependent atelectasis is present in the lung bases. The heart size is normal. There is cirrhosis of the liver. A large volume of ascites has developed. Stones are present in the nondis tended gallbladder. There is calcification in the head of the pancreas. Within the limitations of non contrast examination, the spleen and adrenal glands are normal. The right kidney is unremarkable. The re is a 1.4 cm cyst of the left kidney. No pathologically enlarged abdominal or pelvic lymph nodes ar e identified. There is lumbar levoscoliosis. IMPRESSION: 1. Interval development of a large volume of ascites. 2. Cirrhosis. 3. Liquid stool throughout the colon to the level of the rectum, suggestive of diarrhea. 4. Cholelithiasis. Reviewed, dictated and finalized at location F. NDWATER MONITORING TECHNICIAN
--- NOTE | ~2021-09-03 | XR_ITS ---
XR chest 1V portable DATE: 09/24/2021 06:20 INDICATION: Respiratory failure TECHNIQUE: Portable AP chest on 09/24/2021 at 0445 hours COMPARISON: 09/23/2021 portable AP chest at 2248 hours FINDINGS: ET tube is within 1 cm of ej. [place] range is 2-5 cm above ej. NG tube in stomach. Left upper extremity PIC catheter tip overlies the superior vena cava. There is cardiomegaly, pulmonary vascular congestion and redistribution, prominence of the minor fiss ure and suggestion of small pleural effusions, suggesting congestive heart failure. There are bilater al pulmonary infiltrates, which may be due to pulmonary edema and/or pneumonia. No pneumothorax. IMPRESSION: ET tube within 1 cm of ej. Recommend repositioning of ET tube to 2-5 centimeters abov e ej Congestive heart failure and bilateral pulmonary infiltrates suggesting pulmonary edema. Pneumonia is not excluded. Reviewed, dictated and finalized at location A. SPLITTER IMPRESSION: ET tube within 1 cm of ej. Recommend repositioning of ET tube t o 2-5 centimeters above ej Congestive heart failure and bilateral pulmonary infiltrates suggesting pulmona ry edema. Pneumonia is not excluded.
--- NOTE | ~2021-09-03 | XR_ITS ---
EXAMINATION: XR abdomen obstructive series DATE: 09/09/2021 08:37 INDICATION: Adynamic ileus. TECHNIQUE: Upright and supine views of abdomen were obtained. COMPARISON: Abdomen radiographs 09/08/2021, CT abdomen and pelvis 09/07/2021 FINDINGS: There are dilated loops of small bowel. There is gaseous distention of portions of the colo n. The nasogastric tube tip is in the stomach. No free intraperitoneal gas. There is a surgical clip in left abdomen. IMPRESSION: 1. Dilated small bowel and colon, consistent with adynamic ileus. Reviewed, dictated and finalized at location A. RIETARY TRADER
--- NOTE | 2021-09-03 07:05 | PC.NURSE ---
pt changed into clean gown and all soiled linens disposed of. pt able to localize pain and only heard saying a single curse word when staff was repositioning her on stretcher.
--- NOTE | 2021-09-03 07:15 | ECG_ITS ---
Measurements Intervals [place] Rate: 69 P: 24 KS: 166 QRS: -16 QRSD: 97 T: 0 QT: 431 QTc: 464 Interpretive Statements SINUS RHYTHM LOW QRS VOLTAGE IN PRECORDIAL LEADS VOLTAGE CRITERIA FOR LVH BORDERLINE ST-T WAVE ABNORMALITY- ANTEROLAT/INF LEADS BASELINE ARTIFACT- I, II, III, AVR, AVF, V1, V3-V6 BORDERLINE ECG Electronically Signed On 09-03-2021 8:00:49 IRRIGATION SYSTEM OPERATOR by Vinicius Miller D.O.
--- NOTE | 2021-09-03 07:39 | ED.GENADULT ---
HPI - General Adult General Chief complaint: Altered Mental Status Stated complaint: ams Time Seen by Provider: 09/03/21 07:07 Source: RN notes reviewed History of Present Illness HPI narrative: Patient is a 66 y/o female sent from [place] for altered mental status. RN spoke with staff at patient's facility. They report that patient is usually awake and oriented x 3 and able to carry on a conversation. However, current staff on duty does not know when patient's last know well was. Patient is not talking and not able to provide any additional history. Related Data Home Medications Medication Instructions Recorded Confirmed Flovent Diskus 1 inh INHALATION BID 07/22/21 07/22/21 albuterol sulfate 2 puff INHALATION Q4H PRN 07/22/21 07/22/21 lactulose 30 ml PO TID 07/22/21 07/22/21 metoprolol tartrate 25 mg PO BID 07/22/21 07/22/21 multivit with min-folic acid 1 tablet PO DAILY 07/22/21 07/22/21 omeprazole 20 mg PO DAILY 07/22/21 07/22/21 trazodone 50 mg PO HS 07/22/21 07/22/21 venlafaxine 37.5 mg PO DAILY 07/22/21 07/22/21 Allergies Allergy/AdvReac Type Severity Reaction Status Date / Time Penicillins Allergy Severe Hives / Verified 08/17/20 17:05 Red Face prednisone Allergy Intermediate Other Verified 08/17/20 17:05 citalopram Allergy Mild Unknown Verified 08/17/20 17:05 Sulfa (Sulfonamide Allergy Mild Rash Verified 08/17/20 17:05 Antibiotics) diclofenac AdvReac Intermediate N/V Verified 08/17/20 17:05 tramadol AdvReac Unknown VOMITING Verified 07/23/21 07:28 Review of Systems Review of Systems: ROS unobtainable: Yes unobtainable due to mental status PMFSH Past Medical History Medical History (Updated 09/03/21 @ 16:24 by Sharita Hall MD) Anxiety Bipolar disorder Cardiomegaly Cervical cancer Status post LEEP. Chronic obstructive pulmonary disease Cirrhosis Dementia Depression Diabetes Encephalomalacia on imaging study Right frontal lobe and right cerebellum. 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 Thrombocytopenia Surgical History Surgical History History of 2 sections History of arthroplasty of left knee (2014) History of loop electrosurgical excision procedure (LEEP) Family History Family History (Updated 09/03/21 @ 12:35 by Megan Holguin PA-C) Father Hypertension Chronic obstructive pulmonary disease Congestive heart failure Mother Chronic obstructive pulmonary disease Sibling Hepatitis C Social History Social History (Updated 09/03/21 @ 12:36 by Megan Holguin PA-C) Social History: Surrogate decision maker: Code status: Smoking status: Former smoker Tobacco type: cigarettes Second hand tobacco smoke exposure: No Alcohol intake: former Alcohol use details: Former heavy drinker. Substance use: former Additional living arrangements comments: Resident of [place]. Additional occupation/education comments: Disabled. Exam Const: General: no acute distress Orientation/consciousness: lethargic HENMT: Head: normocephalic Ears: external ears normal General nose exam: Normal external nose present Eyes: General: appearance normal, both eyes and all related structures Conjunctivae: conjunctivae normal Neck: Neck: normal visual inspection and full ROM Chest: Chest palpation & inspection: normal inspection of the chest and no tenderness Resp: Effort & Inspection: normal respiratory effort Auscultation: clear to auscultation bilaterally Cardio: Rate: regular rate Rhythm: regular rhythm GI: GI Palp: No abdominal tenderness and Yes Soft to palpation Skin: General skin exam: normal color and turgor normal Neuro: Cognition (Neuro): abnormal cognition Extrem: General: normal to inspection, full ROM and no pedal edema Psych: Appearance: grossly normal Affect: Blunted affect present
[2021-09-03 08:35] LABS: Alanine Aminotransferase 36 U/L (4-35); Albumin Level 3.9 g/dL (3.5-5.1); Alkaline Phosphatase 97 U/L (38-126); Anion Gap 8 mmol/L (8-16); Aspartate Amino Transferase 37 U/L (14-36); Bilirubin,Total 1.9 mg/dL (0.2-1.3); Blood Urea Nitrogen 14 mg/dL (7-17); Calcium 8.9 mg/dL (8.4-10.2); Carbon Dioxide 25 mmol/L (22-30); Chloride 109 mmol/L (98-107); Estimated CRCL calculation 116 ml/min; Estimated Glomerular Filt Rate > 60; Glucose 126 mg/dL (65-110); Sodium 142 mmol/L (137-145)
[2021-09-03 08:39] LABS: Basophils Percent Auto 0.4 % (0.2-1.2); Eosinophils Absolute Auto 0.1 K/mm3 (0-0.3); Eosinophils Percent Auto 1.2 % (0-4.4); Hematocrit 44.4 % (37.0-47.0); Hemoglobin 14.1 g/dL (12.0-15.0); Immature Granulocyte Absolute 0.04 K/mm3 (0.00-0.031); Immature Granulocyte Percent A 0.8 % (0-0.5); Immature Platelet Fraction Pct 2.9 % (0.9-11.2); Lymphocytes Absolute Auto 0.43 K/mm3 (0.9-3.2); Lymphocytes Percent Auto 8.5 % (18.3-44.2); Mean Corpuscular HGB Conc 31.8 g/dl (32-36); Mean Corpuscular Hemoglobin 30.5 pg (26-34); Mean Corpuscular Volume 95.9 fl (80-100); Mean Platelet Volume 11.3 fl (7.4-10.4); Monocytes Absolute Auto 0.6 K/mm3 (0.1-0.6); Monocytes Percent Auto 11.5 % (2.6-8.5); Neutrophils Absolute Auto 3.9 K/mm3 (1.3-6.7); Neutrophils Percent Auto 77.6 % (45.5-73.1); Platelet Count Result 52 k/mm3 (150-375); Red Blood Count 4.63 M/mm3 (4.2-5.4); Red Cell Distribution Width 14.6 % (11.5-14.5); White Blood Count 5.1 K/mm3 (4.5-10.0)
[2021-09-03 08:46] LABS: Add Urine Microscopic? YES; Appearance Urine Clear (Clear); Bilirubin Urine Negative (Negative); Blood Urine Negative (Negative); Color Urine Yellow (Yellow); Glucose Urine UA Negative (Negative); Ketones Urine Negative (Negative); Leukocyte Esterase Ur Negative LEU/UL (Negative); Nitrate Urine Negative (Negative); Protein Urine Negative (Negative); Specific Grav Ur 1.011 (1.001-1.035); Squamous Epithelial Cell Urine Rare /hpf (Few); WBC Urine 0-3 /hpf
[2021-09-03 08:51] LABS: Ammonia 48 umol/L (9-30)
[2021-09-03 08:59] LABS: INR 1.2; Prothrombin Time 14.7 Seconds (11.1-14.7)
[2021-09-03 09:00] LABS: Partial Thromboplastin Time 27.4 SECONDS (22.3-36.8)
--- NOTE | 2021-09-03 11:39 | PC.NURSE ---
Pt repositioned. Seizure pads placed on bed due to patient trying to put legs and head through rails of stretcher. Remains disoriented, vital signs stable. Pt clean and dry at this time.
--- NOTE | 2021-09-03 11:52 | PC.NURSE ---
Pt unable to take meds by mouth, drowsy. MD aware, will re-order lactulose as rectal suppository.
--- NOTE | 2021-09-03 13:00 | PM.IMHP ---
H&P: HPI History of Present Illness Date/Time: 09/03/21 13:00 Chief Complaint: Altered mental status. Narrative: This is a 66-year-old female with history of hemorrhagic stroke, cirrhosis, hypertension, and COPD presented to the emergency department earlier today via EMS from [place] for evaluation of altered mental status. Due to her current clinical condition she is unable to provide an accurate history and as such a majority of the following is obtained via a review of her electronic medical records. According to EMS documentation they were dispatched to the custodial as staff was concerned that she may be having a stroke. Her last know normal was around midnight. This morning she was reportedly not responding but was noted to pull away when being assessed. According to EMS her bed sheets were soaked in the urine and feces. She was admitted to the hospitalist service last month under similar circumstances and she was found to have Staph not aureus bacteremia felt to be due to a cutaneous source and she was treated with a 10 day course of vancomycin. Her ammonia level was 48 in her LFTs were mildly elevated but aside from that her workup has been pretty unremarkable. At the time my evaluation she does open her eyes to name and answers a few questions (she reports having no pain and states that she is not hungry or thirsty) and she is noted to move upper and lower extremities. She does not provide any history however. Of note the patient did test positive for COVID-19 on Thanksgiving but did not really have any symptoms. Review of Systems Review of Systems: Unable to be obtained given current clinical condition. [facility] Past Medical History Medical History Anxiety Bipolar disorder Cardiomegaly Cervical cancer Status post LEEP. Chronic obstructive pulmonary disease Cirrhosis Dementia Depression Diabetes Encephalomalacia on imaging study Right frontal lobe and right cerebellum. 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 Thrombocytopenia Surgical History Surgical History History of 2 sections History of arthroplasty of left knee (2014) History of loop electrosurgical excision procedure (LEEP) Family History Family History Father Hypertension Chronic obstructive pulmonary disease Congestive heart failure Mother Chronic obstructive pulmonary disease Sibling Hepatitis C Social History Social History (Updated 09/03/21 @ 23:34 by Megan Holguin PA-C) Social History: Surrogate decision maker: Latrice Alves (mother) and Marilynn Alves (daughter). Code status: Full code. Smoking status: Former smoker Second hand tobacco smoke exposure: No Alcohol intake: never Alcohol use details: Former heavy drinker. Substance use: never Substance use type: does not use Additional living arrangements comments: Resident of [place]. Additional occupation/education comments: Disabled. Spiritual care concerns: No Meds Home Medications and Allergies Home Medications Medication Instructions Recorded Confirmed Type Flovent Diskus 1 inh INHALATION BID 07/22/21 09/03/21 History albuterol sulfate 2 puff INHALATION Q4H PRN 07/22/21 09/03/21 History lactulose 30 ml PO TID 07/22/21 09/03/21 History metoprolol tartrate 25 mg PO BID 07/22/21 09/03/21 History multivit with min-folic acid 1 tablet PO DAILY 07/22/21 09/03/21 History omeprazole 20 mg PO DAILY 07/22/21 09/03/21 History trazodone 50 mg PO HS 07/22/21 09/03/21 History venlafaxine 37.5 mg PO DAILY 07/22/21 09/03/21 History Allergies Allergy/AdvReac Type Severity Reaction Status Date / Time Penicillins Allergy Severe Hives / Verified 08/17/20 17:05 Red Face prednisone Allergy Intermediat
--- NOTE | 2021-09-03 15:06 | PC.NURSE ---
Labs attempted x2 by RN and caroline without success. Phlebotomy called for assistance
[2021-09-03] MEDS: LACTULOSE ENEMA 200 GM/1,000 ML ENEMA RECTAL (15:08)
--- NOTE | 2021-09-03 15:41 | PC.NURSE ---
Lactulose enema administered. Multiple large BMs, multiple full linen and brief changes. VSS, Pt able to left head when asked, otherwise remains drowsy, noncommunicative except for various expletives when changing brief.
--- NOTE | 2021-09-03 16:00 | PC.NURSE ---
Phlebotomy at bedside, successful with lab draw
[2021-09-03 16:25] LABS: CRP 0.7 mg/dL (<1.0); Magnesium 2.2 mg/dL (1.6-2.3)
--- NOTE | 2021-09-03 17:12 | PC.NURSE ---
Lab unable to add on ESR. Will call phlebotomy.
--- NOTE | 2021-09-03 17:30 | PC.NURSE ---
Full linen and brief change for incontinence of stool and urine.
--- NOTE | 2021-09-03 17:32 | PC.NURSE ---
Pt starting to interact to YES/NO questions, Family member at bedside.
--- NOTE | 2021-09-03 19:24 | ADMGEN ---
This patient, Cassi Alves, was admitted to 3 Med Surg Room 304-01 at 1750. Patient/family oriented to hospital policies and general routines including ID bracelet, bed and alarms, visiting hours, pain management, procedures, bathroom and other care routines, personal items, smoking policy, room service/diet, and visiting hours. Information on how to activate the Rapid Response Team has been discussed. Patient/Family are encouraged to report perceived risks to care and to ask questions if they do not understand what they are told or what they should do.
[2021-09-03 19:53] LABS: Erythrocyte Sedimentation Rate 22 mm/hr (0-20)
[2021-09-04] MEDS: LORazepam INJ (*CRX) 2 MG/ML VIAL 1 MG IM (02:12)
[2021-09-04] MEDS: HALOPERIDOL LACTATE 5 MG/ML VIAL IM (02:12)
--- NOTE | 2021-09-04 04:35 | PC.NURSE ---
0145 Pt became combative, non compliant, and not staying in room. Dr Valdez was contacted and orders were given.
[2021-09-04 06:35] LABS: Basophils Percent Auto 0.4 % (0.2-1.2); Eosinophils Absolute Auto 0.1 K/mm3 (0-0.3); Eosinophils Percent Auto 2.2 % (0-4.4); Hematocrit 41.3 % (37.0-47.0); Immature Granulocyte Absolute 0.02 K/mm3 (0.00-0.031); Immature Granulocyte Percent A 0.4 % (0-0.5); Immature Platelet Fraction Pct 3.3 % (0.9-11.2); Lymphocytes Absolute Auto 0.46 K/mm3 (0.9-3.2); Mean Corpuscular HGB Conc 31.5 g/dl (32-36); Mean Corpuscular Hemoglobin 30.1 pg (26-34); Mean Corpuscular Volume 95.6 fl (80-100); Mean Platelet Volume 10.9 fl (7.4-10.4); Monocytes Absolute Auto 0.7 K/mm3 (0.1-0.6); Monocytes Percent Auto 14.8 % (2.6-8.5); Neutrophils Absolute Auto 3.3 K/mm3 (1.3-6.7); Neutrophils Percent Auto 72.2 % (45.5-73.1); Platelet Count Result 47 k/mm3 (150-375); Red Blood Count 4.32 M/mm3 (4.2-5.4); Red Cell Distribution Width 14.6 % (11.5-14.5); White Blood Count 4.6 K/mm3 (4.5-10.0)
[2021-09-04 06:36] LABS: Alanine Aminotransferase 29 U/L (4-35); Albumin Level 3.2 g/dL (3.5-5.1); Alkaline Phosphatase 68 U/L (38-126); Anion Gap 9 mmol/L (8-16); Aspartate Amino Transferase 41 U/L (14-36); Bilirubin,Total 3.9 mg/dL (0.2-1.3); Blood Urea Nitrogen 14 mg/dL (7-17); Calcium 8.6 mg/dL (8.4-10.2); Carbon Dioxide 19 mmol/L (22-30); Chloride 113 mmol/L (98-107); Estimated CRCL calculation 116 ml/min; Estimated Glomerular Filt Rate > 60; Glucose 119 mg/dL (65-110); Magnesium 2.2 mg/dL (1.6-2.3); Potassium 3.5 mmol/L (3.4-5.0); Sodium 141 mmol/L (137-145)
[2021-09-04 06:37] LABS: Ammonia < 9 umol/L (9-30)
[2021-09-04 08:29] VITALS: O2SAT 95
[2021-09-04 13:23] VITALS: PULSE 84
[2021-09-04] MEDS: PANTOPRAZOLE 40 MG TABLET PO (13:23)
[2021-09-04] MEDS: METOPROLOL TARTRATE 25 MG TABLET PO (13:23)
[2021-09-04] MEDS: LACTULOSE 20 GM/30 ML UDC PO (13:23)
[2021-09-04] MEDS: THERAPEUTIC MULTIVITAMINS/MINERALS TAB (*BKC) 1 TABLET PO (13:23)
--- NOTE | 2021-09-04 14:15 | ECHO_ITS ---
Patient Info Name: Cassi Alves Age: 66 years : 1955 Gender: Female Ht: 68 in Wt: 170 lbs BSA: 1.94 m2 HR: 82 bpm BP: 128 / 66 mmHg Heart Rhythm: Sinus Rhythm Exam Date: 09/04/2021 9:24 AM Exam Location: [facility] Patient Status: Outpatient Admit Date: 09/03/2021 Staff Ordering Physician: Megan Holguin PA-C Delivery Analyst: Olvin Manuel RDCS, RT Attending Provider: Charmaine Verde PA-C Referring Physician: Chelsie WALSH; Exam Type: CA echo doppler color flow Study Info Indications I50.9 - Heart failure, unspecified Complete two-dimensional, color flow and Doppler transthoracic echocardiogram is performed. Summary 1. Complete two-dimensional, color flow and Doppler transthoracic echocardiogram is performed. 2. Left ventricular chamber dimension is normal. 3. Left ventricular systolic function is normal, estimated at 60-65%. 4. There is mildly increased left ventricular wall thickness. 5. The left ventricular diastolic function is grade I diastolic dysfunction. 6. Right atrial chamber dimension is mildly enlarged. 7. There is trace tricuspid valve regurgitation. 8. No pulmonary hypertension, estimated pulmonary arterial systolic pressure is 24 mmHg. Left Ventricle Left ventricular chamber dimension is normal. Left ventricular systolic function is normal, estimated at 60-65%. There is mildly increased left ventricular wall thickness. The left ventricular diastolic function is grade I diastolic dysfunction. Right Ventricle Right ventricular chamber dimension is normal. Right ventricular systolic function is normal. Left Atria Left atrial chamber dimension is normal. Right Atria Right atrial chamber dimension is mildly enlarged. Aortic Valve The aortic valve is trileaflet. There is no aortic valve stenosis. There is no aortic valve regurgitation. Pulmonic Valve The pulmonic valve is not well visualized. There is trace pulmonic regurgitation. Mitral Valve The mitral valve has normal leaflets. There is no mitral valve regurgitation. Tricuspid Valve The tricuspid valve leaflets are normal. There is trace tricuspid valve regurgitation. No pulmonary hypertension, estimated pulmonary arterial systolic pressure is 24 mmHg. Pericardium/Pleural The pericardium appears normal. There is small pericardial effusion. Inferior Vena Cava Normal inferior vena cava with >50% collapse upon inspiration consistent with normal right atrial pressure, 5 mmHg. Aorta The aortic root size at the sinus of Valsalva is normal. There is mild aortic atherosclerosis. Left Ventricular Outflow Tract Name Value Normal LVOT 2D LVOT Diameter 2.0 cm LVOT Doppler LVOT Peak Gradient 3 mmHg LVOT Mean Gradient 2 mmHg LVOT VTI 15 cm LVOT VTI/AV VTI Ratio 0.8 LVOT Stroke Volume 47 ml LVOT CO 3.8 l/min LVOT CI 2.0 l/min/m2 Mitral Valve
--- NOTE | 2021-09-04 15:54 | PM.IMPN ---
Progress Note: A&P Assessment and Plan (1) Altered mental status: Qualifiers: Altered mental status type: stupor Qualified Code(s): R40.1 - Stupor Code(s): R41.82 - Altered mental status, unspecified Status: Acute Assessment and Plan: Unclear etiology at this time -There are no findings to suggest underlying infection (UA, CXR, physical exam). -CRP, TSH, B12 normal. Hx of gallbladder issues, no signs of infection on labs or PE. -head CT shows chronic changes -blood cx NGTD -ammonia slightly high, lactulose continued -await brain MRI results. Carotid negative. -She was combative overnight (reportedly not her usual) and needed haldol and ativan -Continue neurologic checks overnight -consult neurology (2) Hyperammonemia: Code(s): E72.20 - Disorder of urea cycle metabolism, unspecified Status: Acute Assessment and Plan: Resolved -Daughter reports that she sometimes refuses her lactulose -continue lactulose (3) Thrombocytopenia: Code(s): D69.6 - Thrombocytopenia, unspecified Status: Acute Assessment and Plan: Chronic and stable on review of previous labs, related to underlying liver disease. (4) Cardiomegaly: Code(s): I51.7 - Cardiomegaly Status: Acute Assessment and Plan: Cardiomegaly and pulmonary vascular congestion noted on imaging -echo shows normal EF and diastolic dysfunction grade 1. No significant valvular abnormalities (5) Cirrhosis: Code(s): K74.60 - Unspecified cirrhosis of liver Status: Acute Assessment and Plan: Due to hep C -continue lactulose Time Spent With Patient Time with patient: 25 - 35 minutes Subjective Date/time seen: 09/04/21 15:54 Interval history: Pt is a 66 y/o female here for AMS. Pt did not answer any of my questions other than her name and her birthday. RN states she has been trying to get out of bed. She listens to some commands. Review of Systems Review of Systems: All systems reviewed & are unremarkable except as noted in HPI and below Exam Narrative: General: Well developed well nourished patient in NAD HEENT: normocephalic Neck: supple Neuro: Alert and oriented to herself and birthday but would not answer any other questions. She followed only some commands. Strength in the UE 5/5. able to wiggle toes. spontaneous movement of all extremities. would not follow a neurological exam CV:RRR Resp:CTA Abd: Soft, non distended. No pain to palpation. Positive bowel sounds Extremities: No swelling, erythema, or pain to palpation. Objective Data Vital Signs Vital Signs: Vital Signs - 24 hr 09/03/21 16:15 09/03/21 17:29 09/03/21 17:30 Temperature Pulse Rate 75 81 75 Respiratory Rate 19 18 19 Blood Pressure 139/77 Pulse Oximetry 99 95 99 09/03/21 17:31 09/03/21 18:05 09/03/21 19:28 Temperature 97.6 F Pulse Rate 74 71 71 Respiratory Rate 14 18 18 Blood Pressure 120/78 128/66 Pulse Oximetry 98 98 98 09/04/21 08:29 09/04/21 13:23 Temperature Pulse Rate 84 Respiratory Rate Blood Pressure Pulse Oximetry 95 Intake/Output Intake/Output: Intake & Output 09/01/21 09/02/21 09/03/21 09/04/21 23:59 23:59 23:59 23:59 Intake Total 75 240 Output Total 500 Balance -425 240 Meds/Results Medications: Active Medications Generic Name Dose Route Start Last Admin Trade Name Freq PRN Reason Stop Dose Admin Albuterol 2 puff 09/03/21 23:51 Albuterol Sulfate (*Sp) Aerosol 1 Puff INHALATION Q4H PRN Shortness Of Breath Or Wheezing Fluticasone Propionate 2 puff 09/04/21 08:00 09/04/21 08:29 Fluticasone Prop 110 Mcg Inhaler 1 Puff INHALATION 2 puff Q12HRT ELICIA Administration Lactulose 20 gm 09/04/21 09:00 09/04/21 13:24 Lactulose 20 Gm/30 Ml Udc PO Not Given TID ELICIA Metoprolol Tartrate 25 mg 09/04/21 09:00 09/04/21 13:23 Metoprolol Tartrate 25 Mg Tablet PO 25 mg
[2021-09-04 16:51] LABS: Alveolar/Arterial O2 Gradient 39.7 mmHg; Base Excess ABG -1.3 mEq/l (+/-2.0); Carboxyhemoglobin 1.1 % THb (0-2.0); Fractional Inspired Oxygen 21 %; HCO3 ABG 21.2 mEq/l (22.0-26.0); Methemoglobin ABG 0.1 %THb (0-1.5); Oxygen Content ABG 18.2 %vol (16.0-22.0); Oxyhemoglobin 93.2 % THb (90.0-100.0); PCO2 ABG 29.7 mmHg (35.0-45.0); PO2 ABG 74.5 mmHg (80.0-100.0); PO2 FiO2 Ratio Arterial Blood 3.55 %; Reduced Hemoglobin 5.6 %THb (0-5.0); Total Hemoglobin 13.9 g/dL (12.0-18.0); pH ABG 7.472 (7.350-7.450)
[2021-09-04 16:53] LABS: Device ROOM AIR; Modified Allen's Test Pass; Site Drawn RIGHT RADIAL
[2021-09-04] MEDS: OLANZapine 10 MG INJ VIAL 2.5 MG IM (16:55)
[2021-09-04 20:09] VITALS: O2SAT 93
[2021-09-05 04:00] VITALS: BP 97/58; PULSE 78; RESP 16; RESP 18; TEMP 36.2; O2SAT 97
[2021-09-05 08:48] LABS: Basophils Percent Auto 0.4 % (0.2-1.2); Eosinophils Absolute Auto 0.1 K/mm3 (0-0.3); Eosinophils Percent Auto 1.9 % (0-4.4); Hematocrit 39.8 % (37.0-47.0); Hemoglobin 12.8 g/dL (12.0-15.0); Immature Granulocyte Absolute 0.02 K/mm3 (0.00-0.031); Immature Granulocyte Percent A 0.4 % (0-0.5); Immature Platelet Fraction Pct 3.1 % (0.9-11.2); Lymphocytes Absolute Auto 0.53 K/mm3 (0.9-3.2); Lymphocytes Percent Auto 11.3 % (18.3-44.2); Mean Corpuscular HGB Conc 32.2 g/dl (32-36); Mean Corpuscular Hemoglobin 31.3 pg (26-34); Mean Corpuscular Volume 97.3 fl (80-100); Mean Platelet Volume 10.5 fl (7.4-10.4); Monocytes Absolute Auto 0.5 K/mm3 (0.1-0.6); Monocytes Percent Auto 11.5 % (2.6-8.5); Neutrophils Absolute Auto 3.5 K/mm3 (1.3-6.7); Neutrophils Percent Auto 74.5 % (45.5-73.1); Platelet Count Result 58 k/mm3 (150-375); Red Blood Count 4.09 M/mm3 (4.2-5.4); Red Cell Distribution Width 14.7 % (11.5-14.5); White Blood Count 4.7 K/mm3 (4.5-10.0)
[2021-09-05] MEDS: THERAPEUTIC MULTIVITAMINS/MINERALS TAB (*BKC) 1 TABLET PO (08:53)
[2021-09-05] MEDS: LACTULOSE 20 GM/30 ML UDC PO ×2 (08:53→18:19)
[2021-09-05] MEDS: PANTOPRAZOLE 40 MG TABLET PO (08:54)
[2021-09-05] MEDS: OLANZapine 2.5 MG TABLET PO (08:58)
[2021-09-05] MEDS: LINEZOLID 600 MG TABLET PO ×2 (08:58→21:46)
[2021-09-05 09:00] LABS: Ammonia 60 umol/L (9-30)
[2021-09-05 09:02] LABS: Alanine Aminotransferase 27 U/L (4-35); Albumin Level 3.1 g/dL (3.5-5.1); Alkaline Phosphatase 71 U/L (38-126); Anion Gap 6 mmol/L (8-16); Aspartate Amino Transferase 32 U/L (14-36); Bilirubin,Total 3.8 mg/dL (0.2-1.3); Blood Urea Nitrogen 16 mg/dL (7-17); Calcium 8.4 mg/dL (8.4-10.2); Carbon Dioxide 26 mmol/L (22-30); Chloride 109 mmol/L (98-107); Estimated CRCL calculation 96 ml/min; Estimated Glomerular Filt Rate > 60; Glucose 107 mg/dL (65-110); Magnesium 2.1 mg/dL (1.6-2.3); Potassium 3.9 mmol/L (3.4-5.0); Sodium 141 mmol/L (137-145)
--- NOTE | 2021-09-05 10:45 | PM.IMPN ---
Progress Note: A&P Assessment and Plan (1) Bacteremia: Code(s): R78.81 - Bacteremia Status: Acute Assessment and Plan: On 07/22/21, patient was hospitalized and found to have Coag Negative Staph in blood and urine cultures. She was treated with Vancomycin through 08/04/21 -BCx collected 09/03 have returned Gram-positive cocci in clusters from the aerobic bottle only (2of2). -UA clear. No skin lesions to suggest source. Still could be contaminate. -Echo did not show vegetations. ALEXUS? -No IV access. -Will start linezolid and consult ID (spoke with ID who recommended repeating BCx today which were ordered) -Resume Vanco IV if able to get IV access (2) Altered mental status: Qualifiers: Altered mental status type: stupor Qualified Code(s): R40.1 - Stupor Code(s): R41.82 - Altered mental status, unspecified Status: Acute Assessment and Plan: Unclear etiology at this time -There are no findings to suggest underlying infection (UA, CXR, physical exam). -CRP, TSH, B12 normal. Hx of gallbladder issues but no signs of infection on labs or PE. -Brain MR shows limited exam without acute infarction suspected. There are old right frontal, cerebellar infarctions. -Carotid US normal -Possibly related to the positive blood cx -ammonia slightly high so consider HIE. -She has been combative with removing IV sites and trying to get out of bed needing haldol, Zyprexa and ativan -Continue neurologic checks -Continue lactulose. Add Rifaximin. -Schedule low dose Zyprexa. -Neurology consult ordered -Increase activity. PT/OT (3) Hyperammonemia: Code(s): E72.20 - Disorder of urea cycle metabolism, unspecified Status: Acute Assessment and Plan: Resolved -Daughter reports that she sometimes refuses her lactulose -continue lactulose (4) Thrombocytopenia: Code(s): D69.6 - Thrombocytopenia, unspecified Status: Acute Assessment and Plan: Chronic (since at least 2018) and stable on review of previous labs, related to underlying liver disease. (5) Cardiomegaly: Code(s): I51.7 - Cardiomegaly Status: Acute Assessment and Plan: Cardiomegaly and pulmonary vascular congestion noted on imaging -echo 09/04 shows EF 60-65% and diastolic dysfunction grade 1. No significant valvular abnormalities (6) Cirrhosis: Code(s): K74.60 - Unspecified cirrhosis of liver Status: Acute Assessment and Plan: Due to hep C -continue lactulose as she tolerates (7) DVT prophylaxis: Code(s): Z29.9 - Encounter for prophylactic measures, unspecified Status: Acute Assessment and Plan: SCDs Subjective Date/time seen: 09/05/21 10:45 Interval history: 66yo female with cirrhosis here for AMS. Assuming care. Chart reviewed. Patient states she slept well. She denies any chest pain or abdominal pain. No nausea or vomiting. She is eating well. RN states patient is oriented x1 although she is oriented x4 to my questions. Exam Narrative: AF 97.2 97/58 78 16 97% ra Gen - NARD lying semi-recumbent in bed Chest - bibasilar inspiratory crackles CV - RRR S1/S2, no murmur Abd - Soft, NT/ND, Positive BS Ext - No pedal edema, 2+ DP bilaterally Neuro - Alert and oriented x4. Nonfocal exam. Psych - nml mood, odd affect. poor eye contact Skin - Warm and dry Objective Data Vital Signs Vital Signs: Vital Signs - 24 hr 09/04/21 13:23 09/04/21 20:09 09/05/21 04:00 Temperature 97.2 F L Pulse Rate 84 78 Respiratory Rate 16 Blood Pressure 97/58 L Pulse Oximetry 93 97 Intake/Output Intake/Output: Intake & Output 09/02/21 09/03/21 09/04/21 09/05/21 23:59 23:59 23:59 23:59 Intake Total 75 480 240 Output Total 500 Balance -425 480 240 Meds/Results Medications: Active Medications Generic Name Dose Route Start Last Admin Trade Name Freq PRN Reason Stop Dose Admin Albu
[2021-09-05 12:00] VITALS: BP 88/56; PULSE 92; RESP 17; TEMP 36.3; O2SAT 97
--- NOTE | 2021-09-05 12:42 | WPDNEURCNPN ---
Assessment and Plan Additional Plan 1encephalopathy 2possible seizure plan is to evaluate completely Consult date: 09/05/21 HPI: Cassi Alves is a 66 year old female admitted to the hospital for the complaints of change in mental status in addition to the ongoing diagnosis of 1. Cirrhosis of the liver 2. Hypertension 3. COPD 4. Previous hemorrhagic stroke patient was brought via EMS from [facility] work for the complaints or change in the mental status EMS were dispatched to the [facility] as the staff was concerned that she might be having a stroke and her last known normal was around midnight in the morning she was not responding her bed sheets were soaked in the urine and feces she had been admitted last month to the hospital for the similar circumstances when she was found to be staffed bacteremia which was felt to be due to cutaneous source and she was treated with a 10 day course of vancomycin at that time her ammonia level was 48 a LFTs were mildly elevated at the time of this admission she open her eyes to her name and answer few questions and was not complaining any pain but she did post test positive for COVID-19 on Thanksgiving her other pertinent past diagnosis are 1. Bipolar disorder 2. Cirrhosis 3. Dementia 4. 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 Chronic obstructive pulmonary disease Cirrhosis Dementia Depression Diabetes Encephalomalacia on imaging study Right frontal lobe and right cerebellum. 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 Thrombocytopenia Surgical History Surgical History History of 2 sections History of arthroplasty of left knee (2014) History of loop electrosurgical excision procedure (LEEP) Family History Family History Father Hypertension Chronic obstructive pulmonary disease Congestive heart failure Mother Chronic obstructive pulmonary disease Sibling Hepatitis C Social History Social History Social History: Surrogate decision maker: Latrice Alves (mother) and Marilynn Alves (daughter). Code status: Full code. Smoking status: Former smoker Second hand tobacco smoke exposure: No Alcohol intake: never Alcohol use details: Former heavy drinker. Substance use: never Substance use type: does not use Additional living arrangements comments: Resident of [place]. Additional occupation/education comments: Disabled. Spiritual care concerns: No Meds Home Medications and Allergies Home Medications Medication Instructions Recorded Confirmed Type Flovent Diskus 1 inh INHALATION BID 07/22/21 09/03/21 History albuterol sulfate 2 puff INHALATION Q4H PRN 07/22/21 09/03/21 History lactulose 30 ml PO TID 07/22/21 09/03/21 History metoprolol tartrate 25 mg PO BID 07/22/21 09/03/21 History multivit with min-folic acid 1 tablet PO DAILY 07/22/21 09/03/21 History omeprazole 20 mg PO DAILY 07/22/21 09/03/21 History trazodone 50 mg PO HS 07/22/21 09/03/21 History venlafaxine 37.5 mg PO DAILY 07/22/21 09/03/21 History Allergies Allergy/AdvReac Type Severity Reaction Status Date / Time Penicillins Allergy Severe Hives / Verified 08/17/20 17:05 Red Face prednisone Allergy Intermediate Other Verified 08/17/20 17:05 citalopram Allergy Mild Unknown Verified 08/17/20 17:05 Sulfa (Sulfonamide Allergy Mild Rash Verified 08/17/20 17:05 Antibiotics) diclofenac AdvReac Intermediate N/V Verified 1
--- NOTE | 2021-09-05 14:56 | PCRCNOTE ---
Window of time for administration has passed. See next scheduled administration.
[2021-09-05 16:00] VITALS: BP 89/62; PULSE 91; RESP 19; TEMP 36.6; O2SAT 96
--- NOTE | 2021-09-05 16:00 | PCOTNOTE ---
Began evaluation for occupational therapy. Pt gavePLOF, and the refused to participate in remainder of evaluation, will follow-up when agreeable
[2021-09-05] MEDS: rifAXIMin 550 MG TABLET PO ×2 (18:19→21:46)
[2021-09-05 20:00] VITALS: BP 100/48; PULSE 91; RESP 18; TEMP 37.4; O2SAT 91
[2021-09-05 20:11] VITALS: O2SAT 93
[2021-09-05] MEDS: MIDODRINE HCL 2.5 MG TABLET 5 MG PO (21:46)
[2021-09-05 23:54] VITALS: BP 87/57
[2021-09-06] VITALS (9 sets, daily range): BP systolic 93–112; BP diastolic 70–77; PULSE 67–126; RESP 16–19; TEMP 36.3–37; O2SAT 93–97
[2021-09-06] MEDS: MIDODRINE HCL 2.5 MG TABLET 5 MG PO (01:27)
[2021-09-06 07:15] LABS: Basophils Percent Auto 0.6 % (0.2-1.2); Eosinophils Absolute Auto 0.1 K/mm3 (0-0.3); Eosinophils Percent Auto 2.3 % (0-4.4); Hemoglobin 12.4 g/dL (12.0-15.0); Immature Granulocyte Absolute 0.04 K/mm3 (0.00-0.031); Immature Granulocyte Percent A 0.8 % (0-0.5); Immature Platelet Fraction Pct 3.5 % (0.9-11.2); Lymphocytes Absolute Auto 0.61 K/mm3 (0.9-3.2); Lymphocytes Percent Auto 12.8 % (18.3-44.2); Mean Corpuscular HGB Conc 31.8 g/dl (32-36); Mean Corpuscular Hemoglobin 31.2 pg (26-34); Mean Platelet Volume 10.9 fl (7.4-10.4); Monocytes Absolute Auto 0.7 K/mm3 (0.1-0.6); Monocytes Percent Auto 15.1 % (2.6-8.5); Neutrophils Absolute Auto 3.3 K/mm3 (1.3-6.7); Neutrophils Percent Auto 68.4 % (45.5-73.1); Platelet Count Result 56 k/mm3 (150-375); Red Blood Count 3.98 M/mm3 (4.2-5.4); Red Cell Distribution Width 14.6 % (11.5-14.5); White Blood Count 4.8 K/mm3 (4.5-10.0)
[2021-09-06 07:23] LABS: Alanine Aminotransferase 26 U/L (4-35); Albumin Level 3.1 g/dL (3.5-5.1); Alkaline Phosphatase 74 U/L (38-126); Anion Gap 2 mmol/L (8-16); Aspartate Amino Transferase 36 U/L (14-36); Blood Urea Nitrogen 15 mg/dL (7-17); Calcium 8.4 mg/dL (8.4-10.2); Carbon Dioxide 26 mmol/L (22-30); Chloride 109 mmol/L (98-107); Estimated CRCL calculation 96 ml/min; Estimated Glomerular Filt Rate > 60; Glucose 111 mg/dL (65-110); Phosphorus 2.9 mg/dL (2.5-4.5); Potassium 3.4 mmol/L (3.4-5.0); Sodium 137 mmol/L (137-145)
[2021-09-06] MEDS: THERAPEUTIC MULTIVITAMINS/MINERALS TAB (*BKC) 1 TABLET PO (09:24)
[2021-09-06] MEDS: LACTULOSE 20 GM/30 ML UDC PO ×3 (09:24→18:05)
[2021-09-06] MEDS: POTASSIUM CHLORIDE 20 MEQ TABLET 40 MEQ PO (09:24)
[2021-09-06] MEDS: rifAXIMin 550 MG TABLET PO ×2 (09:25→20:53)
[2021-09-06] MEDS: OLANZapine 2.5 MG TABLET PO (09:26)
[2021-09-06] MEDS: LINEZOLID 600 MG TABLET PO ×2 (09:26→20:53)
[2021-09-06] MEDS: PANTOPRAZOLE 40 MG TABLET PO (09:27)
--- NOTE | 2021-09-06 13:41 | PM.IMPN ---
Progress Note: A&P Assessment and Plan (1) Bacteremia: Code(s): R78.81 - Bacteremia Status: Acute Assessment and Plan: On 07/22/21, patient was hospitalized and found to have Coag Negative Staph in blood and urine cultures. She was treated with Vancomycin through 08/04/21 -BCx collected 09/03 have returned Coag Negative Staph in both bottles. -UA clear. No skin lesions to suggest source. WBC normal and CRP 1. Contaminate? -Repeat BCx 09/05 NGTD. -Echo did not show vegetations. -No IV access. -Currently on linezolid Day 2. ID consulted. Continue the same. (2) Altered mental status: Qualifiers: Altered mental status type: stupor Qualified Code(s): R40.1 - Stupor Code(s): R41.82 - Altered mental status, unspecified Status: Acute Assessment and Plan: Unclear etiology at this time -There are no findings to suggest underlying infection (UA, CXR, physical exam). -CRP, TSH, B12 normal. Hx of gallbladder issues but no signs of infection on labs or PE. -Brain MR shows limited exam without acute infarction suspected. There are old right frontal, cerebellar infarctions. -Carotid US normal -Possibly related to the positive blood cx; Ammonia slightly high so consider HIE. -She has been combative with removing IV sites and trying to get out of bed needing haldol, Zyprexa and ativan -Continue lactulose and Rifaximin. -Continue scheduled low dose Zyprexa. -Neurology following and appreciate their input -Increase activity. PT/OT.Out of bed for meals (3) Hyperammonemia: Code(s): E72.20 - Disorder of urea cycle metabolism, unspecified Status: Acute Assessment and Plan: Resolved -Daughter reports that she sometimes refuses her lactulose -continue lactulose and Rifaximin (4) Thrombocytopenia: Code(s): D69.6 - Thrombocytopenia, unspecified Status: Acute Assessment and Plan: Chronic (since at least 2018) and stable on review of previous labs, related to underlying liver disease. (5) Cardiomegaly: Code(s): I51.7 - Cardiomegaly Status: Acute Assessment and Plan: Cardiomegaly and pulmonary vascular congestion noted on imaging -echo 09/04 shows EF 60-65% and diastolic dysfunction grade 1. No significant valvular abnormalities (6) Cirrhosis: Code(s): K74.60 - Unspecified cirrhosis of liver Status: Acute Assessment and Plan: Due to Hep C -continue lactulose as she tolerates (7) DVT prophylaxis: Code(s): Z29.9 - Encounter for prophylactic measures, unspecified Status: Acute Assessment and Plan: SCDs Subjective Date/time seen: 09/06/21 13:41 Interval history: 66yo female with cirrhosis here for AMS. Eatin well. No complaints. had soft BP yesterday treated with midodrine. Received a 2nd dose this morning around 130am for BP 93/77. Exam Narrative: AF 98.6 106/76 67 16 94% ra Gen - ELI patel in bed finishing her lunch Chest - bibasilar inspiratory crackles CV - RRR S1/S2 Abd - Soft, protuberant, NT, +BS Ext - No pedal edema Psych - flat mood, odd affect. poor eye contact Skin - Warm and dry Objective Data Vital Signs Vital Signs: Vital Signs - 24 hr 09/05/21 16:00 09/05/21 20:00 09/05/21 20:11 Temperature 97.9 F 99.4 F Pulse Rate 91 91 Respiratory Rate 19 18 Blood Pressure 89/62 L 100/48 L Pulse Oximetry 96 91 93 09/05/21 23:54 09/06/21 00:00 09/06/21 04:00 Temperature 97.4 F L 98.6 F Pulse Rate 84 67 Respiratory Rate 18 16 Blood Pressure 87/57 L 112/71 93/77 L Pulse Oximetry 94 93 09/06/21 08:00 09/06/21 08:12 Temperature Pulse Rate Respiratory Rate Blood Pressure 106/76 Pulse Oximetry 94 Intake/Output Intake/Output: Intake & Output 09/03/21 09/04/21 09/05/21 09/06/21 23:59 23:59 23:59 23:59 Intake Total 75 480 2220 340 Output Total 500 Balance -052 401 2249 340 Meds/Results Medication
[2021-09-06] MEDS: MAG HYDROX/AL HYDROX/SIMETH 30 ML UDC PO (23:12)
[2021-09-07 05:51] VITALS: BP 111/79; PULSE 125; RESP 18; TEMP 36.7; O2SAT 95
[2021-09-07 06:18] LABS: Hemoglobin 13.3 g/dL (12.0-15.0); Immature Platelet Fraction Pct 3.5 % (0.9-11.2); Mean Corpuscular HGB Conc 31.7 g/dl (32-36); Mean Corpuscular Hemoglobin 31.1 pg (26-34); Mean Corpuscular Volume 98.1 fl (80-100); Mean Platelet Volume 10.6 fl (7.4-10.4); Platelet Count Result 60 k/mm3 (150-375); Red Blood Count 4.28 M/mm3 (4.2-5.4); Red Cell Distribution Width 14.9 % (11.5-14.5); White Blood Count 6.6 K/mm3 (4.5-10.0)
[2021-09-07 06:33] LABS: Anion Gap 9 mmol/L (8-16); Blood Urea Nitrogen 14 mg/dL (7-17); Calcium 8.7 mg/dL (8.4-10.2); Carbon Dioxide 21 mmol/L (22-30); Chloride 107 mmol/L (98-107); Estimated CRCL calculation 116 ml/min; Estimated Glomerular Filt Rate > 60; Glucose 153 mg/dL (65-110); Potassium 3.5 mmol/L (3.4-5.0); Sodium 137 mmol/L (137-145)
[2021-09-07 08:00] VITALS: BP 103/78; PULSE 130; RESP 18; TEMP 36.4; O2SAT 93
[2021-09-07 08:28] VITALS: O2SAT 95
[2021-09-07] MEDS: rifAXIMin 550 MG TABLET PO (10:25)
[2021-09-07] MEDS: LINEZOLID 600 MG TABLET PO (10:25)
[2021-09-07] MEDS: THERAPEUTIC MULTIVITAMINS/MINERALS TAB (*BKC) 1 TABLET PO (10:25)
[2021-09-07] MEDS: PANTOPRAZOLE 40 MG TABLET PO (10:25)
[2021-09-07] MEDS: OLANZapine 2.5 MG TABLET PO (10:25)
[2021-09-07 12:00] VITALS: BP 116/83; PULSE 138; RESP 17; TEMP 36.4; O2SAT 90
[2021-09-07] MEDS: ONDANSETRON INJ 4 MG/2 ML VIAL IV PUSH (13:40)
--- NOTE | 2021-09-07 14:19 | PM.IMPN ---
Progress Note: A&P Assessment and Plan (1) Nausea & vomiting: Code(s): R11.2 - Nausea with vomiting, unspecified Status: Acute Assessment and Plan: Patient now with nausea and vomiting. She has distended abdomen is tympanitic. Consider ileus. She also having excessive stools but this could be related to the lactulose which will hold. Will also hold her rifaximin for now. White count normal. Platelet count also this stable. Will check CT scan. Will make her NPO. Check lactic acid, ammonia, CRP and procalcitonin. Further recommendation as course dictates. (2) Bacteremia: Code(s): R78.81 - Bacteremia Status: Acute Assessment and Plan: On 07/22/21, patient was hospitalized and found to have Coag Negative Staph in blood and urine cultures. She was treated with Vancomycin through 08/04/21 -BCx collected 09/03 have returned Coag Negative Staph in both bottles. -UA clear. No skin lesions to suggest source. WBC normal and CRP 1. Contaminate? -Repeat BCx 09/05 NGTD. -Echo did not show vegetations. -No IV access. -Currently on linezolid Day 3. ID consulted. Continue the same. (3) Altered mental status: Qualifiers: Altered mental status type: stupor Qualified Code(s): R40.1 - Stupor Code(s): R41.82 - Altered mental status, unspecified Status: Acute Assessment and Plan: Unclear etiology. -CRP, TSH, B12 normal. Hx of gallbladder issues but no signs of infection on labs or PE. -Brain MR shows limited exam without acute infarction suspected. There are old right frontal, cerebellar infarctions. -Carotid US normal -Possibly related to the positive blood cx; Ammonia slightly high so consider HIE. -She has been combative with removing IV sites and trying to get out of bed -Continue scheduled low dose Zyprexa. -Neurology following and appreciate their input -Increase activity. PT/OT. Out of bed for meals (4) Hyperammonemia: Code(s): E72.20 - Disorder of urea cycle metabolism, unspecified Status: Acute Assessment and Plan: Level higher on 09/05 but tolerating the lactulose; Rifaximin added. Daughter reports that patient sometimes refuses her lactulose. Jimmy hold lactulose and Rifaximin for now (5) Thrombocytopenia: Code(s): D69.6 - Thrombocytopenia, unspecified Status: Acute Assessment and Plan: Chronic (since at least 2019) and stable on review of previous labs, related to underlying liver disease. Plt count stable. (6) Cirrhosis: Code(s): K74.60 - Unspecified cirrhosis of liver Status: Acute Assessment and Plan: Due to Hep C. Will back off on lactulose to BID. May need to continue to hold depending on above results. (7) Cardiomegaly: Code(s): I51.7 - Cardiomegaly Status: Acute Assessment and Plan: Cardiomegaly and pulmonary vascular congestion noted on imaging. Echo 09/04 shows EF 60-65% and diastolic dysfunction grade 1. No significant valvular abnormalities. Check BNP (8) DVT prophylaxis: Code(s): Z29.9 - Encounter for prophylactic measures, unspecified Status: Acute Assessment and Plan: SCDs Subjective Date/time seen: 09/07/21 14:19 Interval history: 66yo female with cirrhosis here for AMS. Feels worse today. As developed nausea and vomiting. Also with abdominal pain and abdominal distension. Patient had multiple bowel movements yesterday and had a very large 1 today. Exam Narrative: AF 97.5 103/78 130 18 95% ra Gen - NARD but appears uncomfortable. Chest - mid and lower lung inspiratory crackles CV - tachycardic, regular Abd - Distended and firm but not tense. tympanitic. diffuse tenderness. +BS with tinkling Ext - No pedal edema Psych - nml mood Skin - Warm and dry Objective Data Vital Signs Vital Signs: Vital Signs - 24 hr 09/06/21 16:00 09/06/21 20:00 09/06/21 21:00 Temperature 97.3 F L Pulse Ra
[2021-09-07 15:22] LABS: Basophils Absolute Auto 0.1 K/mm3 (0.0-0.1); Basophils Percent Auto 0.4 % (0.2-1.2); Eosinophils Percent Auto 0.3 % (0-4.4); Hematocrit 44.5 % (37.0-47.0); Hemoglobin 14.7 g/dL (12.0-15.0); Immature Granulocyte Absolute 0.06 K/mm3 (0.00-0.031); Immature Granulocyte Percent A 0.5 % (0-0.5); Lymphocytes Absolute Auto 0.44 K/mm3 (0.9-3.2); Lymphocytes Percent Auto 3.8 % (18.3-44.2); Mean Corpuscular Hemoglobin 31.1 pg (26-34); Mean Corpuscular Volume 94.3 fl (80-100); Monocytes Absolute Auto 0.9 K/mm3 (0.1-0.6); Monocytes Percent Auto 7.9 % (2.6-8.5); Neutrophils Percent Auto 87.1 % (45.5-73.1); Platelet Count Result 81 k/mm3 (150-375); Red Blood Count 4.72 M/mm3 (4.2-5.4); Red Cell Distribution Width 14.9 % (11.5-14.5); White Blood Count 11.5 K/mm3 (4.5-10.0)
[2021-09-07 15:29] LABS: Lactic Acid Reflex 3.5 mmol/L (0.7-2.1)
[2021-09-07 15:32] LABS: Alanine Aminotransferase 30 U/L (4-35); Alkaline Phosphatase 97 U/L (38-126); Anion Gap 12 mmol/L (8-16); Aspartate Amino Transferase 43 U/L (14-36); Bilirubin,Total 3.9 mg/dL (0.2-1.3); Blood Urea Nitrogen 14 mg/dL (7-17); Calcium 9.3 mg/dL (8.4-10.2); Carbon Dioxide 26 mmol/L (22-30); Chloride 103 mmol/L (98-107); Estimated CRCL calculation 96 ml/min; Estimated Glomerular Filt Rate > 60; Glucose 150 mg/dL (65-110); Potassium 3.3 mmol/L (3.4-5.0); Sodium 141 mmol/L (137-145)
[2021-09-07 15:34] LABS: CRP 0.8 mg/dL (<1.0)
[2021-09-07 15:39] LABS: NT Pro B Type Natriuretic Pept 297 pg/mL (5-100)
[2021-09-07 15:43] LABS: Ammonia < 9 umol/L (9-30)
[2021-09-07 16:00] VITALS: BP 124/85; PULSE 144; RESP 19; TEMP 36.2; O2SAT 90
[2021-09-07 18:16] LABS: Reflex Lactic Acid Yes or No Add Lactic
[2021-09-07 19:18] LABS: Lactic Acid 3.7 mmol/L (0.7-2.1)
--- NOTE | 2021-09-07 19:20 | WPDINFPN2 ---
Progress Note: A&P Assessment and Plan (1) Bacteremia: Code(s): R78.81 - Bacteremia Status: Acute Assessment and Plan: Recurrent bacteremia, possibly with OM of spine REC Linezolid through 10/02/21. Follow cbc weekly. I am unavailable for any followup. Subjective Date/time seen: 09/07/21 19:20 Objective Data Vital Signs Vital Signs: Vital Signs - 24 hr 09/06/21 20:00 09/06/21 21:00 09/06/21 22:00 Temperature 36.7 C Pulse Rate 126 H Respiratory Rate 18 Blood Pressure 111/75 Pulse Oximetry 93 95 93 09/07/21 05:51 09/07/21 08:00 09/07/21 08:28 Temperature 36.7 C 36.4 C L Pulse Rate 125 H 130 H Respiratory Rate 18 18 Blood Pressure 111/79 103/78 Pulse Oximetry 95 93 95 09/07/21 12:00 09/07/21 16:00 Temperature 36.4 C L 36.2 C L Pulse Rate 138 H 144 H Respiratory Rate 17 19 Blood Pressure 116/83 124/85 Pulse Oximetry 90 90 Intake/Output Intake/Output: Intake & Output 09/04/21 09/05/21 09/06/21 09/07/21 23:59 23:59 23:59 23:59 Intake Total 480 2220 1820 1180 Balance 480 2220 1820 1180 Meds/Results Medications: Active Medications Generic Name Dose Route Start Last Admin Trade Name Freq PRN Reason Stop Dose Admin Al Hydrox/Mg Hydrox/Simethicone 30 ml 09/06/21 22:29 09/06/21 23:12 Mag Hydrox/Al Hydrox/Simeth 30 Ml Udc PO 30 ml Q6H PRN Administration Indigestion Albuterol 2 puff 09/03/21 23:51 Albuterol Sulfate (*Sp) Aerosol 1 Puff INHALATION Q4H PRN Shortness Of Breath Or Wheezing Bisacodyl 10 mg 09/08/21 09:00 Bisacodyl 10 Mg Suppository RECTAL 09/08/21 09:01 QAM ELICIA Fluticasone Propionate 2 puff 09/04/21 08:00 09/07/21 19:15 Fluticasone Prop 110 Mcg Inhaler 1 Puff INHALATION 2 puff Q12HRT ELICIA Administration Lactulose 20 gm 09/07/21 17:00 Lactulose 20 Gm/30 Ml Udc PO BID ELICIA Linezolid 600 mg 09/05/21 09:00 09/07/21 10:25 Linezolid 600 Mg Tablet PO 600 mg Q12HR ELICIA Administration Metoprolol Tartrate 25 mg 09/04/21 09:00 09/05/21 18:21 Metoprolol Tartrate 25 Mg Tablet PO Not Given Q12HR ELICIA Multivitamins/Calcium 1 tablet 09/04/21 09:00 09/07/21 10:25 Therapeutic Multivitamins/Minerals Tab (*Bkc) PO 1 tablet DAILY ELICIA Administration Olanzapine 2.5 mg 09/04/21 16:25 09/04/21 16:55 Olanzapine 10 Mg Inj Vial IM 2.5 mg Q12HR PRN Administration Agitation Olanzapine 2.5 mg 09/05/21 09:00 09/07/21 10:25 Olanzapine 2.5 Mg Tablet PO 2.5 mg QAM ELICIA Administration Ondansetron HCl 4 mg 09/07/21 13:43 Ondansetron Hcl Odt 4 Mg Tablet PO Q6H PRN Nausea And Vomiting Pantoprazole Sodium 40 mg 09/04/21 09:00 09/07/21 10:25 Pantoprazole 40 Mg Tablet PO 40 mg QAM ELICIA Administration Rifaximin 550 mg 09/05/21 11:05 09/07/21 10:25 Rifaximin 550 Mg Tablet PO 550 mg Q12HR ELICIA Administration Radiology Results: ITS Impressions Head CT 09/03/21 08:47 IMPRESSION: 1. Right frontal and right cerebellar encephalomalacia. 2. Mild age-related intracranial findings. Chest X-Ray 09/03/21 08:51 IMPRESSION: Cardiomegaly, pulmonary vascular congestion. Carotid Doppler Study 09/03/21 16:30 IMPRESSION: 1. <50% stenosis in the right internal carotid artery. 2. <50% stenosis in the left internal carotid artery. Brain MRI 09/04/21 16:18 IMPRESSION: Limited exam without acute infarction suspected. Old right frontal, cerebellar infarctions. Chest/Abdomen/Pelvis CT 09/07/21 16:24 IMPRESSION: Chronic partial distal small bowel obstruction Partial thrombosis without occlusion involving the superior mesenteric and to a greater extent portal veins Cirrhosis, gastroesophageal varices, mild splenomegaly Minimal ascites Cholelithiasis Small sliding hiatal hernia, fluid in the esophagus Patchy bilateral pulmonary infiltrates and/atelectasis Extensive degenerative changes of the cervical,
[2021-09-07 20:00] VITALS: BP 105/75; PULSE 153; RESP 20; TEMP 36.5; O2SAT 91
--- NOTE | 2021-09-07 23:28 | CONS_ITS ---
DATE OF CONSULTATION: 09/07/2021 REASON FOR CONSULTATION: Bacteremia. HISTORY OF PRESENT ILLNESS: A 66-year-old female, who can provide limited history. She currently complains of some nausea and abdominal pain. She has known cirrhosis with ascites. She had Staphylococcus bacteremia last month, which is treated appropriately. She returned to the hospital on November 04, with decreased level of consciousness, incontinence. Here blood cultures were collected are showing Staphylococcus species. Consultation requested. She has lost IV access and now has a linezolid ongoing date #3. ALLERGIES: MULTIPLE ANTIBIOTICS LISTED AND REVIEWED. PRESENT MEDICATIONS: See above. She is also on rifaximin, not under my direction. HABITS: Ex-smoker. Ex alcohol to excess. PAST MEDICAL HISTORY: As detailed in her previous chart and current chart. She does have a left total knee arthroplasty. No other prosthetic devices. REVIEW OF SYSTEMS: 14-point review otherwise negative, though compromised by the patient's memory. FAMILY HISTORY: Not pertinent to her present illness. SOCIAL HISTORY: penitentiary resident. No family at the bedside. PHYSICAL EXAMINATION: GENERAL: This is a middle-aged female, who appears older than her actual age. No acute distress. SKIN: No generalized rashes. No jaundice. NODES: She has no cervical, axillary adenopathy. EENT: The conjunctivae are normal. Dry mucous membranes. Otherwise, the oral mucosa is normal. Teeth in good repair. NECK: No masses, thyromegaly, meningismus. LUNGS: Clear to auscultation and percussion. Good air entry. CARDIAC: Regular rate and rhythm. No murmurs, gallops, or rubs. ABDOMEN: Distended, nontender. Hypoactive bowel sounds. EXTREMITIES: 1+ nonpitting edema distally in the legs. LABORATORY STUDIES: White count 11.5, up from 6.6 earlier in the day. Hemoglobin normal, platelets 81 similar to previous. She had no acidosis on arrival. Glucose 150, otherwise chemistry panel normal. Bilirubin 3.3. Transaminases, low tone normal. CRP normal. RADIOLOGY: Chest, abdomen, pelvic CT performed today suggested partial small-bowel obstruction, mesenteric and portal vein thrombosis, cirrhosis findings, ascites, gallstones, patchy pulmonary infiltrates, atelectasis, DDD, pelvic fractures, hip arthritis. ASSESSMENT: 1. 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 2. Cirrhosis with ascites and immunocompromise. 3. Protein-calorie malnutrition. 4. Left total knee arthroplasty, not infected by exam. RECOMMENDATIONS: 1. antibiotics until October 02, to complete 4 week course. 2. Follow up the T12-L1 spine with imaging and clinical evaluation over time. 3. CBC should be performed weekly, if not more often to rule out drug side effect from the linezolid. Thank you very much for asking me see her. I will not be available for any type of followup. SEEMA LACY M.D. GREEN CHAIN MARKER GREEN CHAIN MARKER D I MT: Lucero HUBBARD
[2021-09-08] VITALS (9 sets, daily range): BP systolic 91–106; BP diastolic 59–74; PULSE 129–146; RESP 15–20; TEMP 36.1–36.8; O2SAT 90–95
[2021-09-08] MEDS: SODIUM CHLORIDE 0.9% IV 500 ML 999 ML IV CONT ×2 (02:41→06:09)
[2021-09-08] MEDS: BISACODYL 10 MG SUPPOSITORY RECTAL ×2 (02:42→08:18)
--- NOTE | 2021-09-08 05:30 | ECG_ITS ---
Measurements Intervals [employer] Rate: 142 P: -1 IA: 145 QRS: -17 QRSD: 86 T: -45 QT: 342 QTc: 527 Interpretive Statements SINUS TACHYCARDIA VENTRICULAR PREMATURE COMPLEXES CONSIDER INFERIOR INFARCT, AGE INDETERMINATE BORDERLINE ST-T WAVE ABNORMALITY- ANT/HIGH LAT LEADS BASELINE ARTIFACT- I, II, III, AVR, AVL, AVF, V1-V6 ABNORMAL ECG Electronically Signed On 09-08-2021 6:54:21 ENGINE B[employer] by Vinicius Miller D.O.
[2021-09-08 06:23] LABS: Basophils Percent Auto 0.3 % (0.2-1.2); Eosinophils Absolute Auto 0.1 K/mm3 (0-0.3); Eosinophils Percent Auto 0.6 % (0-4.4); Hematocrit 39.9 % (37.0-47.0); Hemoglobin 13.1 g/dL (12.0-15.0); Immature Granulocyte Absolute 0.09 K/mm3 (0.00-0.031); Immature Granulocyte Percent A 0.6 % (0-0.5); Lymphocytes Absolute Auto 0.81 K/mm3 (0.9-3.2); Lymphocytes Percent Auto 5.7 % (18.3-44.2); Mean Corpuscular HGB Conc 32.8 g/dl (32-36); Mean Corpuscular Hemoglobin 30.8 pg (26-34); Mean Corpuscular Volume 93.9 fl (80-100); Mean Platelet Volume 10.4 fl (7.4-10.4); Monocytes Absolute Auto 1.2 K/mm3 (0.1-0.6); Monocytes Percent Auto 8.6 % (2.6-8.5); Neutrophils Percent Auto 84.2 % (45.5-73.1); Platelet Count Result 70 k/mm3 (150-375); Red Blood Count 4.25 M/mm3 (4.2-5.4); Red Cell Distribution Width 15.2 % (11.5-14.5); White Blood Count 14.2 K/mm3 (4.5-10.0)
[2021-09-08 06:32] LABS: Lactic Acid Reflex 2.4 mmol/L (0.7-2.1)
[2021-09-08 06:35] LABS: Alanine Aminotransferase 23 U/L (4-35); Albumin Level 3.1 g/dL (3.5-5.1); Alkaline Phosphatase 75 U/L (38-126); Anion Gap 8 mmol/L (8-16); Aspartate Amino Transferase 34 U/L (14-36); Bilirubin,Total 4.2 mg/dL (0.2-1.3); Blood Urea Nitrogen 16 mg/dL (7-17); Calcium 8.4 mg/dL (8.4-10.2); Carbon Dioxide 24 mmol/L (22-30); Chloride 108 mmol/L (98-107); Estimated CRCL calculation 81 ml/min; Estimated Glomerular Filt Rate > 60; Glucose 136 mg/dL (65-110); Magnesium 1.9 mg/dL (1.6-2.3); Phosphorus 2.7 mg/dL (2.5-4.5); Potassium 3.6 mmol/L (3.4-5.0); Sodium 140 mmol/L (137-145)
[2021-09-08] MEDS: LINEZOLID 600 MG/300 ML 600 MG/300 ML SOLN 300 MG IVPB ×2 (08:35→20:56)
[2021-09-08] MEDS: SODIUM CHLORIDE 0.9% IV 1,000 ML 125 ML IV CONT (08:39)
[2021-09-08 09:19] LABS: Reflex Lactic Acid Yes or No Add Lactic
[2021-09-08 10:06] LABS: Lactic Acid 2.8 mmol/L (0.7-2.1)
--- NOTE | 2021-09-08 10:20 | PM.IMPN ---
Progress Note: A&P Assessment and Plan (1) Nausea & vomiting: Code(s): R11.2 - Nausea with vomiting, unspecified Status: Acute Assessment and Plan: Patient developed nausea and vomiting 09/[address] showing chronic distal pSBO. Also noted was partial thrombosis without occlusion of the SMV and portal vein. WBC climbing. LA climbed to 3.7 but better today (and has hx of elevated lactic so possibly related to her cirrhosis). Procalcitonin pending. Symptoms better but with persistent tachycardia. Etiology unclear. Ileus? Continue IV fluids as long as she keeps the IV in place. Continue to monitor on tele. Anticoagulation held due to thrombocytopenia. Repeat KUB. Consider GenSurg consult if no improvement. Okay for ice chips. No beta mariela since BP soft. (2) Bacteremia: Code(s): R78.81 - Bacteremia Status: Acute Assessment and Plan: On 07/22/21, patient was hospitalized and found to have Coag Negative Staph in blood and urine cultures. She was treated with Vancomycin through 08/04/21 -BCx collected 09/03 have returned Coag Negative Staph in both bottles. -UA clear. No skin lesions to suggest source. WBC normal and CRP 1. Contaminate? -Repeat BCx 09/05 NGTD. -Echo did not show vegetations. -CT scan showing possible spinal osteomyelitis. MR ordered. -Currently on linezolid Day 4. Appreciate ID input. Continue the same. (3) Altered mental status: Qualifiers: Altered mental status type: stupor Qualified Code(s): R40.1 - Stupor Code(s): R41.82 - Altered mental status, unspecified Status: Acute Assessment and Plan: -CRP, TSH, B12 normal. Hx of gallbladder issues but no signs of infection -Brain MR shows no acute infarction suspected. There are old right frontal, cerebellar infarctions. -Carotid US normal -Confusion possibly related to the positive blood cx; Ammonia slightly high so consider HIE. -She has been combative with removing IV sites and trying to get out of bed -Neurology following and appreciate their input (4) Hyperammonemia: Code(s): E72.20 - Disorder of urea cycle metabolism, unspecified Status: Acute Assessment and Plan: Level higher on 09/05 but tolerating the lactulose; Rifaximin added. Daughter reports that patient sometimes refuses her lactulose. Will continue to hold lactulose and Rifaximin (5) Thrombocytopenia: Code(s): D69.6 - Thrombocytopenia, unspecified Status: Acute Assessment and Plan: Chronic (since at least 2019) and stable on review of previous labs, related to underlying liver disease. Plt count stable. (6) Cirrhosis: Code(s): K74.60 - Unspecified cirrhosis of liver Status: Acute Assessment and Plan: Due to Hep C. Continue to hold oral meds (7) Cardiomegaly: Code(s): I51.7 - Cardiomegaly Status: Acute Assessment and Plan: Cardiomegaly and pulmonary vascular congestion noted on imaging. Echo 09/04 shows EF 60-65% and diastolic dysfunction grade 1. No significant valvular abnormalities. (8) DVT prophylaxis: Code(s): Z29.9 - Encounter for prophylactic measures, unspecified Status: Acute Assessment and Plan: SCDs Subjective Date/time seen: 09/08/21 10:20 Interval history: 66yo female with cirrhosis here for AMS. Patient developed abd pain and found to have presumed ileus. She had NG tube placed. She agreed to IV placement so IV fluids started and linezolid changed to IV. She feels her abd pain better. +BMs/flatus. She is thirsty with dry mouth. Nausea better as well. BP dropped overnight. Exam Narrative: AF 97.2 93/63 138 16 95% ra Gen - NARD lying almost flat in bed HEENT - NG tube secured with clear fluid in tubing Chest - left lower lung inspiratory crackles CV - tachycardic, regular Abd - very mildly distended but no pain. +BS Ext - No pedal edema Psych - nml mood Skin
[2021-09-08] MEDS: PANTOPRAZOLE SODIUM IV 40 MG VIAL IV PUSH (14:19)
--- NOTE | 2021-09-08 15:47 | WPDNEUROPN ---
Progress Note: A&P Additional Plan treatment is being continued as such for the possibility of the osteomyelitis of the spine in addition other comorbid conditions and neurological examination at this stage is fairly stable Time Spent With Patient Time with patient: 15 - 25 minutes Subjective Date/time seen: 09/08/21 15:47 66 years old admitted to the hospital with the diagnosis of encephalopathy, in addition to ongoing history of cirrhosis of the liver, hypertension the PD, and previous hemorrhagic stroke, MRI of the lumbar spine documented thoracolumbar levoscoliosis with anterior and posterior fusion from T12-L1 L2-3 and L4 and 5 with severe lumbar spondylosis and arachnoiditis as well in addition to subacute insufficiency fracture of left sacral alae, thoracic MRI documented thoracic spondylosis with dextroscoliosis, infectious disease consult was obtained because of his staphylococci us bacteremia last month and with the positive blood culture this time and Infectious Disease consult recommendation noted to continue the treatment to complete 4 weeks of course and followup the T12-L1 spine with imaging, Newman CBC to rule out this side effect from the linzolid Review of Systems Review of Systems: All systems reviewed & are unremarkable except as noted in HPI and below Exam Narrative: continues to be awake alert cooperative in no acute distress head normocephalic ear nose throat examination normal neck is supple with no meningeal signs heart regular but tachycardic lungs with crackles abdomen is soft with normal bowel sounds neurological examination unchanged Objective Data Vital Signs Vital Signs: Vital Signs - 24 hr 09/07/21 16:00 09/07/21 20:00 09/08/21 00:00 Temperature 36.2 C L 36.5 C 36.4 C L Pulse Rate 144 H 153 H 129 H Respiratory Rate 19 20 20 Blood Pressure 124/85 105/75 106/74 Pulse Oximetry 90 91 90 09/08/21 04:00 09/08/21 06:07 09/08/21 08:00 Temperature 36.8 C Pulse Rate 146 H 140 H 138 H Respiratory Rate 20 Blood Pressure 94/72 L Pulse Oximetry 91 95 09/08/21 08:54 09/08/21 14:36 Temperature 36.2 C L 36.1 C L Pulse Rate 138 H 144 H Respiratory Rate 16 15 Blood Pressure 93/63 L 91/59 L Pulse Oximetry 95 94 Intake/Output Intake/Output: Intake & Output 09/05/21 09/06/21 09/07/21 12/18/21 23:59 23:59 23:59 23:59 Intake Total 2220 1820 1180 300 Output Total 200 Balance 2220 1820 1180 100 Meds/Results Medications: Active Medications Generic Name Dose Route Start Last Admin Trade Name Freq PRN Reason Stop Dose Admin Al Hydrox/Mg Hydrox/Simethicone 30 ml 09/06/21 22:29 09/06/21 23:12 Mag Hydrox/Al Hydrox/Simeth 30 Ml Udc PO 30 ml Q6H PRN Administration Indigestion Albuterol 2 puff 09/03/21 23:51 Albuterol Sulfate (*Sp) Aerosol 1 Puff INHALATION Q4H PRN Shortness Of Breath Or Wheezing Fluticasone Propionate 2 puff 09/04/21 08:00 09/08/21 07:48 Fluticasone Prop 110 Mcg Inhaler 1 Puff INHALATION 2 puff Q12HRT ELICIA Administration Linezolid 600 mg in 300 mls @ 300 mls/hr 09/08/21 09:00 09/08/21 09:35 Zyvox IVPB Infused Q12HR ELICIA Infusion Sodium Chloride 1,000 mls @ 125 mls/hr 09/08/21 01:40 09/08/21 14:20 Normal Saline Iv IV CONT Not Given .Q8H ELICIA Lactulose 20 gm 09/07/21 17:00 Lactulose 20 Gm/30 Ml Udc PO BID ELICIA Metoprolol Tartrate 25 mg 09/04/21 09:00 09/05/21 18:21 Metoprolol Tartrate 25 Mg Tablet PO Not Given Q12HR ELICIA Multivitamins/Calcium 1 tablet 09/04/21 09:00 09/08/21 14:18 Therapeutic Multivitamins/Minerals Tab (*Bkc) PO Not Given DAILY ELICIA Olanzapine 2.5 mg 09/04/21 16:25 09/04/21 16:55 Olanzapine 10 Mg Inj Vial IM 2.5 mg Q12HR PRN Administration Agitation Olanzapine 2.5 mg 09/05/21 09:00 09/08/21 14:18 Olanzapine 2.5 Mg Tablet PO Not Given QAM ELICIA Ondansetron HCl 4 mg 09/07/21 13:43 Ondansetron Hcl Odt 4 Mg Tablet PO Q6H
[2021-09-08] MEDS: ALBUTEROL SULFATE (*SP) AEROSOL 1 PUFF 2 PUFF INHALATION (20:19)
[2021-09-09] VITALS (13 sets, daily range): BP systolic 85–107; BP diastolic 55–70; PULSE 115–152; RESP 18–20; TEMP 36.6–37.1; O2SAT 92–95
[2021-09-09] MEDS: SODIUM CHLORIDE 0.9% IV 1,000 ML 125 ML IV CONT ×2 (02:41→23:25)
[2021-09-09 06:47] LABS: Basophils Percent Auto 0.4 % (0.2-1.2); Eosinophils Absolute Auto 0.1 K/mm3 (0-0.3); Eosinophils Percent Auto 1.3 % (0-4.4); Hematocrit 35.9 % (37.0-47.0); Hemoglobin 11.6 g/dL (12.0-15.0); Immature Granulocyte Absolute 0.03 K/mm3 (0.00-0.031); Immature Granulocyte Percent A 0.4 % (0-0.5); Lymphocytes Absolute Auto 0.48 K/mm3 (0.9-3.2); Lymphocytes Percent Auto 7.1 % (18.3-44.2); Mean Corpuscular HGB Conc 32.3 g/dl (32-36); Mean Corpuscular Hemoglobin 31.2 pg (26-34); Mean Corpuscular Volume 96.5 fl (80-100); Mean Platelet Volume 10.8 fl (7.4-10.4); Monocytes Absolute Auto 0.6 K/mm3 (0.1-0.6); Neutrophils Absolute Auto 5.5 K/mm3 (1.3-6.7); Neutrophils Percent Auto 81.8 % (45.5-73.1); Platelet Count Result 49 k/mm3 (150-375); Red Blood Count 3.72 M/mm3 (4.2-5.4); Red Cell Distribution Width 15.4 % (11.5-14.5); White Blood Count 6.8 K/mm3 (4.5-10.0)
[2021-09-09 06:55] LABS: Lactic Acid Reflex 2.2 mmol/L (0.7-2.1)
[2021-09-09 06:57] LABS: Alanine Aminotransferase 21 U/L (4-35); Alkaline Phosphatase 73 U/L (38-126); Anion Gap 6 mmol/L (8-16); Aspartate Amino Transferase 29 U/L (14-36); Bilirubin,Total 4.5 mg/dL (0.2-1.3); Blood Urea Nitrogen 15 mg/dL (7-17); Calcium 8.1 mg/dL (8.4-10.2); Carbon Dioxide 24 mmol/L (22-30); Chloride 108 mmol/L (98-107); Estimated CRCL calculation 96 ml/min; Estimated Glomerular Filt Rate > 60; Glucose 119 mg/dL (65-110); Magnesium 1.8 mg/dL (1.6-2.3); Phosphorus 2.6 mg/dL (2.5-4.5); Potassium 3.3 mmol/L (3.4-5.0); Sodium 138 mmol/L (137-145)
[2021-09-09 07:14] LABS: INR 1.3
[2021-09-09 07:15] LABS: Partial Thromboplastin Time 33.4 SECONDS (22.3-36.8)
[2021-09-09] MEDS: PANTOPRAZOLE SODIUM IV 40 MG VIAL IV PUSH (08:09)
[2021-09-09] MEDS: LINEZOLID 600 MG/300 ML 600 MG/300 ML SOLN 300 MG IVPB ×2 (08:09→21:59)
[2021-09-09 09:39] LABS: Reflex Lactic Acid Yes or No Add Lactic
--- NOTE | 2021-09-09 10:01 | PC.NURSE ---
Orders received for PICC line placement r/t prison abt therapy, [place] to place PICC line this shift. Awaiting arrival.
--- NOTE | 2021-09-09 13:33 | PM.IMPN ---
Progress Note: A&P Assessment and Plan (1) Nausea & vomiting: Code(s): R11.2 - Nausea with vomiting, unspecified Status: Acute Assessment and Plan: Patient developed nausea and vomiting 09/[address] showing chronic distal pSBO. Also noted was partial thrombosis without occlusion of the SMV and portal vein. WBC climbing. LA climbed to 3.7 but better today (and has hx of elevated lactic so possibly related to her cirrhosis). Procalcitonin pending. Symptoms better but with persistent tachycardia. Etiology unclear. Ileus? Continue IV fluids as long as she keeps the IV in place. Continue to monitor on tele. Anticoagulation held due to thrombocytopenia. Repeat KUB. Consider GenSurg consult if no improvement. Okay for ice chips. No beta mariela since BP soft. (2) Bacteremia: Code(s): R78.81 - Bacteremia Status: Acute Assessment and Plan: On 07/22/21, patient was hospitalized and found to have Coag Negative Staph in blood and urine cultures. She was treated with Vancomycin through 08/04/21 -BCx collected 09/03 have returned Coag Negative Staph in both bottles. -UA clear. No skin lesions to suggest source. WBC normal and CRP 1. Contaminate? -Repeat BCx 09/05 NGTD. -Echo did not show vegetations. -CT scan showing possible spinal osteomyelitis. MR ordered. -Currently on linezolid Day 5. Appreciate ID input. Continue the same. (3) Altered mental status: Qualifiers: Altered mental status type: stupor Qualified Code(s): R40.1 - Stupor Code(s): R41.82 - Altered mental status, unspecified Status: Acute Assessment and Plan: -CRP, TSH, B12 normal. Hx of gallbladder issues but no signs of infection -Brain MR shows no acute infarction suspected. There are old right frontal, cerebellar infarctions. -Carotid US normal -Confusion possibly related to the positive blood cx; Ammonia slightly high so consider HIE. -She has been combative with removing IV sites and trying to get out of bed -Neurology following and appreciate their input (4) Hyperammonemia: Code(s): E72.20 - Disorder of urea cycle metabolism, unspecified Status: Acute Assessment and Plan: Level higher on 09/05 but tolerating the lactulose; Rifaximin added. Daughter reports that patient sometimes refuses her lactulose. Will continue to hold lactulose and Rifaximin (5) Thrombocytopenia: Code(s): D69.6 - Thrombocytopenia, unspecified Status: Acute Assessment and Plan: Chronic (since at least 2019) and stable on review of previous labs, related to underlying liver disease. Plt count stable. (6) Cirrhosis: Code(s): K74.60 - Unspecified cirrhosis of liver Status: Acute Assessment and Plan: Due to Hep C. Continue to hold oral meds (7) Cardiomegaly: Code(s): I51.7 - Cardiomegaly Status: Acute Assessment and Plan: Cardiomegaly and pulmonary vascular congestion noted on imaging. Echo 09/04 shows EF 60-65% and diastolic dysfunction grade 1. No significant valvular abnormalities. (8) DVT prophylaxis: Code(s): Z29.9 - Encounter for prophylactic measures, unspecified Status: Acute Assessment and Plan: SCDs Subjective Date/time seen: 09/09/21 13:33 S: Patient is examined at the bedside. She remains tachycardic. Blood pressure is soft. Patient is thirsty with dry mouth. Nausea is resolving. Interval history: 66yo female with cirrhosis here for AMS. Patient developed abd pain and found to have presumed ileus. She had NG tube placed. She agreed to IV placement so IV fluids started and linezolid changed to IV. She feels her abd pain better. +BMs/flatus. She is thirsty with dry mouth. Nausea better as well. BP dropped overnight. Review of Systems Review of Systems: All systems reviewed & are unremarkable except as noted in HPI and below Exam Narrative: AF 98.8F 105/70 134
[2021-09-09] MEDS: LORazepam INJ (*CRX) 2 MG/ML VIAL 0.5 MG IV PUSH (13:49)
[2021-09-09] MEDS: KCL 40 MEQ/WATER 100 ML 100 ML 25 ML IVPB (14:13)
--- NOTE | 2021-09-09 18:37 | ECG_ITS ---
Measurements Intervals [place] Rate: 150 P: -14 FL: 142 QRS: -20 QRSD: 89 T: -89 QT: 319 QTc: 504 Interpretive Statements ATRIAL FLUTTER/TACHYCARDIA WITH RAPID VENTRICULAR RESPONSE CONSIDER INFERIOR INFARCT, AGE INDETERMINATE ST-T WAVE ABNORMALITY IN HIGH LATERAL LEADS- CONSIDER ISCHEMIA BASELINE ARTIFACT- I, II, III, V4 ABNORMAL ECG Electronically Signed On 09-09-2021 20:18:54 [employer] OFFICER by Vinicius Miller D.O.
[2021-09-09] MEDS: SODIUM CHLORIDE 0.9% IV 500 ML IV CONT (18:56)
--- NOTE | 2021-09-09 19:31 | PC.NURSE ---
EKG reported to MD Mcmanus, sinus tachycardia possible atrial flutter non specfic St & T wave abnormalitys, cardiology consult ordered. Current bp 99/70 and hr 146
[2021-09-09] MEDS: DIGOXIN TAB 125 MCG TABLET PO ×2 (21:54→23:22)
[2021-09-09] MEDS: SODIUM CHLORIDE 0.9% IV 500 ML 999 ML IV CONT ×2 (21:57→23:57)
[2021-09-10] VITALS (10 sets, daily range): BP systolic 91–116; BP diastolic 55–80; PULSE 121–145; RESP 18–22; TEMP 36.1–36.9; O2SAT 91–95
[2021-09-10] MEDS: SODIUM CHLORIDE 0.9% IV 1,000 ML 125 ML IV CONT ×3 (02:24→14:48)
[2021-09-10] MEDS: METOPROLOL TARTRATE INJ 5 MG/5 ML VIAL IV PUSH (08:25)
[2021-09-10] MEDS: LINEZOLID 600 MG/300 ML 600 MG/300 ML SOLN 300 MG IVPB ×2 (08:25→20:26)
[2021-09-10] MEDS: PANTOPRAZOLE SODIUM IV 40 MG VIAL IV PUSH (08:26)
--- NOTE | 2021-09-10 08:49 | PM.IMPN ---
Progress Note: A&P Assessment and Plan (1) Atrial tachycardia: Code(s): I47.1 - Supraventricular tachycardia Status: Acute Assessment and Plan: Symptoms better but with persistent tachycardia. Continue IV fluids as long as she keeps the IV in place. Continue to monitor on tele. Metoprolol IVonce. (2) Ileus: Code(s): K56.7 - Ileus, unspecified Status: Acute Assessment and Plan: Patient developed nausea and vomiting 09/[address] showing chronic distal pSBO vs ileus. WBC up to 14 but normal now. LA climbed to 3.7 but normal now. Clinically improved. Procalcitonin normal. Proceed with SBFT today. Consider GenSurg consult if no improvement or concern on SBFT. (3) Thrombosis: Code(s): I82.90 - Acute embolism and thrombosis of unspecified vein Status: Acute Assessment and Plan: Also noted by CT was partial thrombosis without occlusion of the SMV and portal vein. Anticoagulation held due to thrombocytopenia and varices. (4) Bacteremia: Code(s): R78.81 - Bacteremia Status: Acute Assessment and Plan: On 07/22/21, patient was hospitalized and found to have Coag Negative Staph in blood and urine cultures. She was treated with Vancomycin through 08/04/21 -BCx collected 09/03 have returned Coag Negative Staph in both bottles. -UA clear. No skin lesions to suggest source. WBC normal and CRP 1. -Repeat BCx 09/05 NGTD. -Echo did not show vegetations. -CT scan showing possible spinal osteomyelitis but no evidence of diskitis or osteomyelitis. There is peripheral displacement of the cauda equina at L5 consistent with arachnoiditis. Resume PT and OT when able. Will follow clinically. -Currently on linezolid. Appreciate ID input. Continue the same. (5) Nausea & vomiting: Code(s): R11.2 - Nausea with vomiting, unspecified Status: Acute Assessment and Plan: As above (6) Altered mental status: Qualifiers: Altered mental status type: stupor Qualified Code(s): R40.1 - Stupor Code(s): R41.82 - Altered mental status, unspecified Status: Acute Assessment and Plan: -CRP, TSH, B12 normal. Hx of gallbladder issues but no signs of infection -Brain MR shows no acute infarction suspected. There are old right frontal, cerebellar infarctions. -Carotid US normal -Confusion possibly related to the positive blood cx; Ammonia slightly high so consider HIE. -She has been combative with removing IV sites and trying to get out of bed -Neurology following and appreciate their input - She has improved overall. Resume low-dose Zyprexa when able. (7) Hyperammonemia: Code(s): E72.20 - Disorder of urea cycle metabolism, unspecified Status: Acute Assessment and Plan: Level higher on 09/05 but tolerating the lactulose; Rifaximin added. Daughter reports that patient sometimes refuses her lactulose. Will continue to hold lactulose and Rifaximin (8) Thrombocytopenia: Code(s): D69.6 - Thrombocytopenia, unspecified Status: Acute Assessment and Plan: Chronic (since at least 2018) and stable on review of previous labs, related to underlying liver disease. Plt count stable. (9) Cirrhosis: Code(s): K74.60 - Unspecified cirrhosis of liver Status: Acute Assessment and Plan: Due to Hep C. Continue to hold oral meds. (10) Cardiomegaly: Code(s): I51.7 - Cardiomegaly Status: Acute Assessment and Plan: Cardiomegaly and pulmonary vascular congestion noted on imaging. Echo 09/04 shows EF 60-65% and diastolic dysfunction grade 1. No significant valvular abnormalities. (11) DVT prophylaxis: Code(s): Z29.9 - Encounter for prophylactic measures, unspecified Status: Acute Assessment and Plan: SCDs Subjective Date/time seen: 09/10/21 08:50 Interval history: 66yo female with cirrhosis here for AMS.
[2021-09-10 08:57] LABS: Alanine Aminotransferase 19 U/L (4-35); Albumin Level 2.8 g/dL (3.5-5.1); Alkaline Phosphatase 61 U/L (38-126); Anion Gap 5 mmol/L (8-16); Aspartate Amino Transferase 26 U/L (14-36); Bilirubin,Total 5.3 mg/dL (0.2-1.3); Blood Urea Nitrogen 11 mg/dL (7-17); Carbon Dioxide 22 mmol/L (22-30); Chloride 109 mmol/L (98-107); Estimated CRCL calculation 132 ml/min; Estimated Glomerular Filt Rate > 60; Glucose 99 mg/dL (65-110); Potassium 3.4 mmol/L (3.4-5.0); Sodium 136 mmol/L (137-145)
[2021-09-10 08:58] LABS: Lactic Acid Reflex 1.3 mmol/L (0.7-2.1)
[2021-09-10 09:18] LABS: Basophils Percent Auto 0.3 % (0.2-1.2); Eosinophils Absolute Auto 0.1 K/mm3 (0-0.3); Eosinophils Percent Auto 3.5 % (0-4.4); Hematocrit 32.1 % (37.0-47.0); Hemoglobin 10.3 g/dL (12.0-15.0); Immature Granulocyte Absolute 0.01 K/mm3 (0.00-0.031); Immature Granulocyte Percent A 0.3 % (0-0.5); Immature Platelet Fraction Pct 2.6 % (0.9-11.2); Lymphocytes Absolute Auto 0.36 K/mm3 (0.9-3.2); Mean Corpuscular HGB Conc 32.1 g/dl (32-36); Mean Corpuscular Hemoglobin 31.5 pg (26-34); Mean Corpuscular Volume 98.2 fl (80-100); Mean Platelet Volume 10.4 fl (7.4-10.4); Monocytes Absolute Auto 0.3 K/mm3 (0.1-0.6); Monocytes Percent Auto 7.5 % (2.6-8.5); Neutrophils Absolute Auto 3.2 K/mm3 (1.3-6.7); Neutrophils Percent Auto 79.4 % (45.5-73.1); Platelet Count Result 42 k/mm3 (150-375); Red Blood Count 3.27 M/mm3 (4.2-5.4); Red Cell Distribution Width 15.3 % (11.5-14.5)
[2021-09-10 10:38] LABS: Bilirubin Indirect 4.5 mg/dL (0-1.1)
--- NOTE | 2021-09-10 11:47 | PCOTNOTE ---
Patient unavailable to be seen, in SBO procedure. Will attempt again as able to see for OT.
--- NOTE | 2021-09-10 15:13 | PCOTNOTE ---
Attempted OT treatment, despite education on benefits of participating with therapy, patient declined at this time. Will follow and attempt at later time.
--- NOTE | 2021-09-10 17:03 | PC.NURSE ---
Notified Dr Powell that patient pulled out NG tube. No new orders received at this time.
[2021-09-10] MEDS: SODIUM CHLORIDE 0.9% IV 500 ML IV CONT (18:20)
[2021-09-10] MEDS: metroNIDAZOLE 500 MG/ISO 100ML 500 MG/100 ML BAG 100 MG IVPB ×2 (19:38→23:33)
[2021-09-10] MEDS: MIDODRINE HCL 2.5 MG TABLET 5 MG PO (20:25)
[2021-09-10] MEDS: dilTIAZem HCL 30 MG TABLET PO (20:27)
[2021-09-11] VITALS (10 sets, daily range): BP systolic 82–108; BP diastolic 55–70; PULSE 83–126; RESP 18–20; TEMP 36.1–36.8; O2SAT 93–98
[2021-09-11] MEDS: metroNIDAZOLE 500 MG/ISO 100ML 500 MG/100 ML BAG 100 MG IVPB ×3 (05:18→17:26)
[2021-09-11] MEDS: SODIUM CHLORIDE 0.9% IV 1,000 ML 125 ML IV CONT ×2 (05:18→13:20)
[2021-09-11] MEDS: dilTIAZem HCL 30 MG TABLET PO ×2 (05:47→17:20)
[2021-09-11 05:49] LABS: Basophils Percent Auto 0.4 % (0.2-1.2); Eosinophils Absolute Auto 0.1 K/mm3 (0-0.3); Eosinophils Percent Auto 3.5 % (0-4.4); Hematocrit 28.2 % (37.0-47.0); Hemoglobin 9.4 g/dL (12.0-15.0); Immature Granulocyte Absolute 0.01 K/mm3 (0.00-0.031); Immature Granulocyte Percent A 0.4 % (0-0.5); Immature Platelet Fraction Pct 2.1 % (0.9-11.2); Lymphocytes Absolute Auto 0.33 K/mm3 (0.9-3.2); Lymphocytes Percent Auto 12.9 % (18.3-44.2); Mean Corpuscular HGB Conc 33.3 g/dl (32-36); Mean Corpuscular Hemoglobin 31.9 pg (26-34); Mean Corpuscular Volume 95.6 fl (80-100); Mean Platelet Volume 9.6 fl (7.4-10.4); Monocytes Absolute Auto 0.2 K/mm3 (0.1-0.6); Neutrophils Absolute Auto 1.9 K/mm3 (1.3-6.7); Neutrophils Percent Auto 73.8 % (45.5-73.1); Platelet Count Result 29 k/mm3 (150-375); Red Blood Count 2.95 M/mm3 (4.2-5.4); Red Cell Distribution Width 14.6 % (11.5-14.5); White Blood Count 2.6 K/mm3 (4.5-10.0)
[2021-09-11 06:35] LABS: Alanine Aminotransferase 17 U/L (4-35); Albumin Level 2.5 g/dL (3.5-5.1); Alkaline Phosphatase 51 U/L (38-126); Anion Gap 5 mmol/L (8-16); Aspartate Amino Transferase 23 U/L (14-36); Bilirubin,Total 4.6 mg/dL (0.2-1.3); Blood Urea Nitrogen 7 mg/dL (7-17); CRP 3.9 mg/dL (<1.0); Calcium 7.7 mg/dL (8.4-10.2); Carbon Dioxide 22 mmol/L (22-30); Chloride 108 mmol/L (98-107); Estimated CRCL calculation 132 ml/min; Estimated Glomerular Filt Rate > 60; Glucose 98 mg/dL (65-110); Magnesium 1.5 mg/dL (1.6-2.3); Phosphorus 2.5 mg/dL (2.5-4.5); Potassium 2.8 mmol/L (3.4-5.0); Sodium 135 mmol/L (137-145)
--- NOTE | 2021-09-11 07:35 | WPDGICN ---
Assessment and Plan Assessment and plan (1) Ileitis: Code(s): K52.9 - Noninfective gastroenteritis and colitis, unspecified Status: Acute Assessment and Plan: the x-rays do suggest the possibility of Crohn's disease. It is surprising that she had not had symptoms prior to this. Markers are pending. If anti sacharomyces antibodies are elevated, would consider beginning treatment with something like Entocort. I thought I read in 1 of the notes that she had had a normal calprotectin level but I do not see that this was done. I will order that. If it is negative, then inflammatory bowel disease would be much less likely (2) Altered mental status: Qualifiers: Altered mental status type: unspecified Qualified Code(s): R41.82 - Altered mental status, unspecified Code(s): R41.82 - Altered mental status, unspecified Status: Acute Assessment and Plan: this appears to have resolved since admission. Ammonia level was not significantly elevated, except, briefly, on her 2nd hospital day. therefore probably not hepatic encephalopathy . (3) Chronic obstructive pulmonary disease: Code(s): J44.9 - Chronic obstructive pulmonary disease, unspecified Status: Acute Assessment and Plan: This seems to be stable at this point. She does not appear short of breath today (4) Hepatitis C: Code(s): B19.20 - Unspecified viral hepatitis C without hepatic coma Status: Acute Assessment and Plan: am curious as to whether this was ever treated. Two years ago she had very elevated titers but I do not see that they were repeated. GI Consult Note Consult date/time: 09/11/21 07:35 HPI: Cassi Alves is a 66 year old female who was initially admitted here with altered mental status. It was thought that she may have had a stroke. 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 She has a has a history of cirrhosis, chronic hepatitis-C, and COPD. She was alert today. She told me that she came in initially because of what was thought to be urinary tract infection and turned out to be a blood poisoning.. She denied having abdominal pain but she stated that after initially focusing on her infection they are now looking into that pointing to her belly. The CT scan did show dilated segments of small bowel up to 3.7 cm in diameter with some air-fluid levels in the distal small bowel suggestive of chronic distal small-bowel obstruction. A small bowel series yesterday shows multiple areas of possible narrowing suggestive of inflammatory bowel disease. Markers have been ordered for inflammatory bowel disease and are pending at this time. She denies any prior diagnosis of Crohn's disease or ulcerative colitis. She denies having chronic abdominal pain or diarrhea. She states that she has not seen any liver specialist recently regarding her cirrhosis. Review of Systems Review of Systems: All systems reviewed & are unremarkable except as noted in HPI and below PMFSH Past Medical History Medical History Anxiety Bipolar disorder Cardiomegaly Cervical cancer Status post LEEP. Chronic obstructive pulmonary disease Cirrhosis Dementia Depression Diabetes Encephalomalacia on imaging study Right frontal lobe and right cerebellum. 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 Thrombocytopenia Surgical History Surgical History History of 2 sections History of arthroplasty of left knee (2014) History of loop electrosurgical excision procedure (LEEP) Family History Family History Father Hypertension Chronic obstructive pulmonary disease Congestive heart failure Mother Chronic obstructive pulmonary disease Sibling
[2021-09-11] MEDS: MAGNESIUM SULF 2 GM/WATER 50ML 2 GM/50 ML BAG IVPB (08:24)
[2021-09-11] MEDS: LINEZOLID 600 MG/300 ML 600 MG/300 ML SOLN 300 MG IVPB ×2 (08:25→20:24)
[2021-09-11] MEDS: MIDODRINE HCL 2.5 MG TABLET 5 MG PO ×3 (08:25→16:22)
[2021-09-11] MEDS: PANTOPRAZOLE SODIUM IV 40 MG VIAL IV PUSH (08:25)
[2021-09-11] MEDS: KCL 20 MEQ/SW 100 ML 100 ML 50 MEQ IVPB ×2 (09:25→11:25)
--- NOTE | 2021-09-11 10:45 | PM.IMPN ---
Progress Note: A&P Assessment and Plan (1) Hypotension: Code(s): I95.9 - Hypotension, unspecified Status: Acute Assessment and Plan: BP soft at times requiring fluid bolus. Midodrine added. Continue IV fluids. (2) Atrial tachycardia: Code(s): I47.1 - Supraventricular tachycardia Status: Acute Assessment and Plan: Symptoms better but with persistent tachycardia. Continue IV fluids as long as she keeps the IV in place. Continue to monitor on tele. Diltiazem added. Repeat EKG (3) Ileitis: Code(s): K52.9 - Noninfective gastroenteritis and colitis, unspecified Status: Acute Assessment and Plan: Patient developed nausea and vomiting 09/[address] showing chronic distal pSBO vs ileus. WBC up to 14 but now low. LA climbed to 3.7 but normal now. Clinically improved. Procalcitonin normal.SBFT showing multiple segments of intervening small bowel narrowing and dilation with mucosal irregularity. No significant obstruction of flow of contrast to the colon. Transit time was less than 2 hours. There is haustral irregularity in the proximal colon. Most likely considerations include inflammatory bowel disease (i.e. Crohn's disease) and infection. She was started on Flagyl and Primaxin but will change to Cipro. Appreciate GI input. Anti-sacharomyces Ab and calprotectin ordered. (4) Ileus: Code(s): K56.7 - Ileus, unspecified Status: Acute Assessment and Plan: As above (5) Thrombosis: Code(s): I82.90 - Acute embolism and thrombosis of unspecified vein Status: Acute Assessment and Plan: Also noted by CT of the Abd 09/07 was partial thrombosis without occlusion of the SMV and portal vein. Anticoagulation held due to thrombocytopenia, anemia and varices. (6) Bacteremia: Code(s): R78.81 - Bacteremia Status: Acute Assessment and Plan: On 07/22/21, patient was hospitalized and found to have Coag Negative Staph in blood and urine cultures. She was treated with Vancomycin through 08/04/21 -BCx collected 09/03 have returned Coag Negative Staph in both bottles. -UA clear. No skin lesions to suggest source. WBC normal and CRP 1. -Repeat BCx 09/05 NGTD. -Echo did not show vegetations. -CT scan showing possible spinal osteomyelitis but no evidence of diskitis or osteomyelitis. There is peripheral displacement of the cauda equina at L5 consistent with arachnoiditis. Resume PT and OT when able. Will follow clinically. -Currently on linezolid. Appreciate ID input. Continue the same. May need to change to Vanco. (7) Pancytopenia: Code(s): D61.818 - Other pancytopenia Status: Acute Assessment and Plan: Leukopenia today at 2600. Possibly related to abx since both Primaxin and Linezolid can cause myelosuppresion. Will repeat CBC. Change to Cipro Anemia noted now. Hgb was normal in the 13 range but now down to 9.4. COnsider lab error so will repeat. Check iron studies as well. TCP is chronic (since at least 2019) related to underlying liver disease. Plt count dropping. Repeat later today to determine if accurate. Possibly due to the abx. (8) Nausea & vomiting: Code(s): R11.2 - Nausea with vomiting, unspecified Status: Acute Assessment and Plan: As above (9) Altered mental status: Qualifiers: Altered mental status type: stupor Qualified Code(s): R40.1 - Stupor Code(s): R41.82 - Altered mental status, unspecified Status: Acute Assessment and Plan: -CRP, TSH, B12 normal. Hx of gallbladder issues but no signs of infection -Brain MR shows no acute infarction suspected. There are old right frontal, cerebellar infarctions. -Carotid US normal -Confusion possibly related to the positive blood cx; Ammonia slightly high so consider HIE; chronic component related to CVA? -She has been combative with removing IV sites and trying to get out of bed -Neur
--- NOTE | 2021-09-11 11:10 | ECG_ITS ---
Measurements Intervals [place] Rate: 89 P: 6 UT: 188 QRS: -17 QRSD: 94 T: -5 QT: 405 QTc: 494 Interpretive Statements SINUS RHYTHM ATRIAL AND VENTRICULAR PREMATURE COMPLEXES LOW QRS VOLTAGE IN PRECORDIAL LEADS BORDERLINE T WAVE ABNORMALITY- ANT/INF LEADS BASELINE ARTIFACT- I, II, III, AVR, AVL, V4-V5 BORDERLINE ECG Electronically Signed On 09-11-2021 12:48:48 MANAGER EVENT by Vinicius Miller D.O.
[2021-09-11 12:52] LABS: Basophils Percent Auto 0.6 % (0.2-1.2); Eosinophils Absolute Auto 0.1 K/mm3 (0-0.3); Eosinophils Percent Auto 3.6 % (0-4.4); Hematocrit 29.6 % (37.0-47.0); Hemoglobin 9.7 g/dL (12.0-15.0); Immature Granulocyte Absolute 0.01 K/mm3 (0.00-0.031); Immature Granulocyte Percent A 0.3 % (0-0.5); Immature Platelet Fraction Pct 2.6 % (0.9-11.2); Lymphocytes Absolute Auto 0.24 K/mm3 (0.9-3.2); Lymphocytes Percent Auto 7.2 % (18.3-44.2); Mean Corpuscular HGB Conc 32.8 g/dl (32-36); Mean Corpuscular Hemoglobin 31.5 pg (26-34); Mean Corpuscular Volume 96.1 fl (80-100); Mean Platelet Volume 10.2 fl (7.4-10.4); Monocytes Absolute Auto 0.3 K/mm3 (0.1-0.6); Monocytes Percent Auto 8.4 % (2.6-8.5); Neutrophils Absolute Auto 2.7 K/mm3 (1.3-6.7); Neutrophils Percent Auto 79.9 % (45.5-73.1); Platelet Count Result 37 k/mm3 (150-375); Red Blood Count 3.08 M/mm3 (4.2-5.4); Red Cell Distribution Width 14.8 % (11.5-14.5); White Blood Count 3.4 K/mm3 (4.5-10.0)
[2021-09-11 13:09] LABS: Potassium 2.9 mmol/L (3.4-5.0)
[2021-09-11] MEDS: CIPROFLOXACIN 400 MG/D5W 200ML 200 ML 200 MG IVPB ×2 (13:33→20:24)
[2021-09-11] MEDS: POTASSIUM CHLORIDE 20 MEQ PACKET (FOR LIQUID) 40 MEQ PO (16:38)
[2021-09-12] VITALS (7 sets, daily range): BP systolic 99–124; BP diastolic 57–92; PULSE 80–127; RESP 18–19; TEMP 36–36.7; O2SAT 94–96
[2021-09-12] MEDS: metroNIDAZOLE 500 MG/ISO 100ML 500 MG/100 ML BAG 100 MG IVPB ×2 (00:31→05:43)
[2021-09-12] MEDS: dilTIAZem HCL 30 MG TABLET PO ×4 (00:31→17:00)
[2021-09-12] MEDS: SODIUM CHLORIDE 0.9% IV 1,000 ML 125 ML IV CONT (02:53)
[2021-09-12 07:12] LABS: Basophils Percent Auto 0.7 % (0.2-1.2); Eosinophils Absolute Auto 0.1 K/mm3 (0-0.3); Eosinophils Percent Auto 4.3 % (0-4.4); Hemoglobin 9.2 g/dL (12.0-15.0); Immature Granulocyte Absolute 0.01 K/mm3 (0.00-0.031); Immature Granulocyte Percent A 0.4 % (0-0.5); Immature Platelet Fraction Pct 2.9 % (0.9-11.2); Lymphocytes Absolute Auto 0.33 K/mm3 (0.9-3.2); Mean Corpuscular HGB Conc 32.9 g/dl (32-36); Mean Corpuscular Hemoglobin 31.6 pg (26-34); Mean Corpuscular Volume 96.2 fl (80-100); Mean Platelet Volume 10.5 fl (7.4-10.4); Monocytes Absolute Auto 0.3 K/mm3 (0.1-0.6); Monocytes Percent Auto 9.1 % (2.6-8.5); Neutrophils Percent Auto 73.5 % (45.5-73.1); Platelet Count Result 36 k/mm3 (150-375); Red Blood Count 2.91 M/mm3 (4.2-5.4); White Blood Count 2.8 K/mm3 (4.5-10.0)
[2021-09-12 07:28] LABS: Alanine Aminotransferase 16 U/L (4-35); Albumin Level 2.3 g/dL (3.5-5.1); Alkaline Phosphatase 54 U/L (38-126); Anion Gap 7 mmol/L (8-16); Aspartate Amino Transferase 21 U/L (14-36); Bilirubin,Total 2.7 mg/dL (0.2-1.3); Blood Urea Nitrogen 2 mg/dL (7-17); CRP 2.8 mg/dL (<1.0); Calcium 7.8 mg/dL (8.4-10.2); Carbon Dioxide 22 mmol/L (22-30); Chloride 109 mmol/L (98-107); Estimated CRCL calculation 132 ml/min; Estimated Glomerular Filt Rate > 60; Glucose 110 mg/dL (65-110); Magnesium 1.7 mg/dL (1.6-2.3); Phosphorus 2.4 mg/dL (2.5-4.5); Potassium 2.9 mmol/L (3.4-5.0); Sodium 138 mmol/L (137-145)
[2021-09-12] MEDS: CIPROFLOXACIN 400 MG/D5W 200ML 200 ML 200 MG IVPB ×2 (08:05→20:28)
[2021-09-12] MEDS: POTASSIUM CHLORIDE 20 MEQ PACKET (FOR LIQUID) 40 MEQ PO ×2 (08:14→16:25)
[2021-09-12] MEDS: MIDODRINE HCL 2.5 MG TABLET 5 MG PO ×3 (08:14→16:25)
[2021-09-12] MEDS: PANTOPRAZOLE SODIUM IV 40 MG VIAL IV PUSH (08:16)
[2021-09-12] MEDS: LINEZOLID 600 MG/300 ML 600 MG/300 ML SOLN 300 MG IVPB ×2 (09:11→20:29)
--- NOTE | 2021-09-12 10:04 | PM.IMPN ---
Progress Note: A&P Assessment and Plan (1) Hypotension: Code(s): I95.9 - Hypotension, unspecified Status: Acute Assessment and Plan: BP soft at times requiring fluid bolus. Midodrine added. BP better controlled. Will stop IV fluids. (2) Atrial tachycardia: Code(s): I47.1 - Supraventricular tachycardia Status: Acute Assessment and Plan: Symptoms better but with intermittent tachycardia. Repeat EKG showing sinus mechanism. TSH normal. Martin related to the change in her clinical status from the ileitis. Will stop IV fluids. Continue to monitor on tele. Continue Diltiazem. Check dopplers. (3) Ileitis: Code(s): K52.9 - Noninfective gastroenteritis and colitis, unspecified Status: Acute Assessment and Plan: Patient developed nausea and vomiting 09/[address] showing chronic distal pSBO vs ileus. WBC up to 14 but now low. LA climbed to 3.7 but normal now. Clinically improved. Procalcitonin normal. SBFT showing multiple segments of intervening small bowel narrowing and dilation with mucosal irregularity. No significant obstruction of flow of contrast to the colon. Transit time was less than 2 hours. There is haustral irregularity in the proximal colon. Most likely considerations include IBD (i.e. Crohn's disease) and infection. She was started on Flagyl and Primaxin but will change to Cipro. Clinically better. Appreciate GI input. Anti-sacharomyces Ab and calprotectin pending. Advance diet. Resume lactulose? (4) Ileus: Code(s): K56.7 - Ileus, unspecified Status: Acute Assessment and Plan: As above (5) Thrombosis: Code(s): I82.90 - Acute embolism and thrombosis of unspecified vein Status: Acute Assessment and Plan: Also noted by CT of the Abd 09/07 was partial thrombosis without occlusion of the SMV and portal vein. Anticoagulation held due to thrombocytopenia, anemia and varices. (6) Bacteremia: Code(s): R78.81 - Bacteremia Status: Acute Assessment and Plan: On 07/22/21, patient was hospitalized and found to have Coag Negative Staph in blood and urine cultures. She was treated with Vancomycin through 08/04/21 -BCx collected 09/03 have returned Coag Negative Staph in both bottles. -UA clear. No skin lesions to suggest source. -Repeat BCx 09/05 NGTD. -Echo did not show vegetations. -CT scan showing possible spinal osteomyelitis but MRI showing no evidence of diskitis or osteomyelitis. There is peripheral displacement of the cauda equina at L5 consistent with arachnoiditis. Resume PT and OT. Will follow clinically. -Currently on linezolid. Appreciate ID input. Continue the same. (7) Pancytopenia: Code(s): D61.818 - Other pancytopenia Status: Acute Assessment and Plan: Leukopenia yesterday at 2600. Possibly related to abx since both Primaxin and Linezolid can cause myelosuppression. Repeat CBC up to 3400. She was changed from Primaxin to Cipro. WBC pending now. Anemia noted now. Hgb was normal in the 13 range but dropped to 9.4. Check iron studies tomorrow. TCP is chronic (since at least 2019) related to underlying liver disease. Plt count dropping to 29K but improved on repeat. CBC today is pending. Possibly due to the abx. Follow (8) Nausea & vomiting: Code(s): R11.2 - Nausea with vomiting, unspecified Status: Acute Assessment and Plan: As above (9) Altered mental status: Qualifiers: Altered mental status type: stupor Qualified Code(s): R40.1 - Stupor Code(s): R41.82 - Altered mental status, unspecified Status: Acute Assessment and Plan: -CRP, TSH, B12 normal. Hx of gallbladder issues but no signs of infection -Brain MR shows no acute infarction suspected. There are old right frontal, cerebellar infarctions. -Carotid US normal -Confusion possibly related to the positive blood cx; Ammonia slightly high so consid
[2021-09-12] MEDS: MAGNESIUM SULF 2 GM/WATER 50ML 2 GM/50 ML BAG IVPB (10:32)
[2021-09-12] MEDS: POTASSIUM/PHOSPHORUS/SODIUM 1.5 GM PACKET 1 PACKET PO ×2 (11:09→16:25)
--- NOTE | 2021-09-12 11:27 | PCNWS ---
Weekly nutritional screen. Patient is tolerating current diet of full liquids. Plans for advancing diet as tolerated per MD orders. No weight loss reported. No nutritional needs at this time.
[2021-09-12] MEDS: metroNIDAZOLE 250 MG TABLET 500 MG PO ×2 (12:45→20:29)
[2021-09-12] MEDS: ALBUTEROL SULFATE (*SP) AEROSOL 1 PUFF 2 PUFF INHALATION (21:21)
[2021-09-13] VITALS (8 sets, daily range): BP systolic 100–109; BP diastolic 50–69; PULSE 84–132; RESP 18; TEMP 35.9–36.6; O2SAT 93–100
[2021-09-13] MEDS: dilTIAZem HCL 30 MG TABLET PO ×3 (00:23→12:43)
[2021-09-13] MEDS: metroNIDAZOLE 250 MG TABLET 500 MG PO ×3 (06:12→21:20)
[2021-09-13 06:48] LABS: Basophils Percent Auto 0.6 % (0.2-1.2); Eosinophils Absolute Auto 0.2 K/mm3 (0-0.3); Eosinophils Percent Auto 4.8 % (0-4.4); Hematocrit 30.1 % (37.0-47.0); Hemoglobin 10.1 g/dL (12.0-15.0); Immature Granulocyte Absolute 0.03 K/mm3 (0.00-0.031); Immature Granulocyte Percent A 0.6 % (0-0.5); Immature Platelet Fraction Pct 2.5 % (0.9-11.2); Lymphocytes Absolute Auto 0.71 K/mm3 (0.9-3.2); Lymphocytes Percent Auto 14.7 % (18.3-44.2); Mean Corpuscular HGB Conc 33.6 g/dl (32-36); Mean Corpuscular Hemoglobin 32.1 pg (26-34); Mean Corpuscular Volume 95.6 fl (80-100); Mean Platelet Volume 10.1 fl (7.4-10.4); Monocytes Absolute Auto 0.4 K/mm3 (0.1-0.6); Monocytes Percent Auto 7.7 % (2.6-8.5); Neutrophils Absolute Auto 3.5 K/mm3 (1.3-6.7); Neutrophils Percent Auto 71.6 % (45.5-73.1); Platelet Count Result 48 k/mm3 (150-375); Red Blood Count 3.15 M/mm3 (4.2-5.4); White Blood Count 4.8 K/mm3 (4.5-10.0)
[2021-09-13 06:55] LABS: Alanine Aminotransferase 19 U/L (4-35); Albumin Level 2.6 g/dL (3.5-5.1); Alkaline Phosphatase 66 U/L (38-126); Anion Gap 8 mmol/L (8-16); Aspartate Amino Transferase 27 U/L (14-36); Bilirubin,Total 2.3 mg/dL (0.2-1.3); Calcium 8.1 mg/dL (8.4-10.2); Carbon Dioxide 22 mmol/L (22-30); Chloride 105 mmol/L (98-107); Estimated CRCL calculation 137 ml/min; Estimated Glomerular Filt Rate > 60; Glucose 172 mg/dL (65-110); Magnesium 1.7 mg/dL (1.6-2.3); Phosphorus 2.3 mg/dL (2.5-4.5); Potassium 3.4 mmol/L (3.4-5.0); Sodium 135 mmol/L (137-145)
[2021-09-13 08:01] LABS: Iron 199 ug/dL (37-170); Percent Iron Saturation 78 % (20-50)
[2021-09-13 09:53] LABS: Blood Urea Nitrogen < 2 mg/dL (7-17)
[2021-09-13] MEDS: POTASSIUM CHLORIDE 20 MEQ PACKET (FOR LIQUID) 40 MEQ PO ×2 (10:48→16:48)
[2021-09-13] MEDS: POTASSIUM/PHOSPHORUS/SODIUM 1.5 GM PACKET 1 PACKET PO ×2 (10:48→16:48)
[2021-09-13] MEDS: MIDODRINE HCL 2.5 MG TABLET 5 MG PO ×3 (10:49→16:48)
[2021-09-13] MEDS: CIPROFLOXACIN 400 MG/D5W 200ML 200 ML 200 MG IVPB ×2 (10:49→20:18)
[2021-09-13] MEDS: OLANZapine 2.5 MG TABLET PO (10:49)
[2021-09-13] MEDS: THERAPEUTIC MULTIVITAMINS/MINERALS TAB (*BKC) 1 TABLET PO (10:49)
--- NOTE | 2021-09-13 10:55 | PCRCNOTE ---
Window of time for administration has passed. See next scheduled administration.
--- NOTE | 2021-09-13 11:03 | PCOTNOTE ---
Attempted to work with pt., however refused despite encouragement to participate and explaining benefits of therapy. Pt. stated she was tired, and had not slept well due to roommate.
--- NOTE | 2021-09-13 12:17 | WPDGIPROGNO ---
Progress Note: A&P Assessment and Plan (1) Ileitis: Code(s): K52.9 - Noninfective gastroenteritis and colitis, unspecified Status: Acute Assessment and Plan: I will schedule her for small-bowel series to see if she has had resolution of the previous stenotic areas. (2) Hepatitis C: Code(s): B19.20 - Unspecified viral hepatitis C without hepatic coma Status: Acute Assessment and Plan: Hepatitis titers have been drawn and are pending (3) Sepsis: Qualifiers: Sepsis acute organ dysfunction status: unspecified Sepsis type: sepsis due to unspecified organism Qualified Code(s): A41.9 - Sepsis, unspecified organism Code(s): A41.9 - Sepsis, unspecified organism Status: Acute Assessment and Plan: currently on Cipro. She does not know a time frame as to how long she will require antibiotics Subjective Date/time seen: 09/13/21 12:17 Cassi Alves is a 66 year old female who was originally admitted with altered mental status. She had abnormalities of the small bowel showing several segments of suspected partial obstruction, possible ileitis. Now she has been able to eat and in fact is tolerating a regular diet. We still do not know the etiology for those findings. She also remains on antibiotics for sepsis. she is now tolerating food and having no pain. I will schedule her for a small-bowel series to follow-up on her the ileal strictures that were seen on admission Review of Systems Review of Systems: All systems reviewed & are unremarkable except as noted in HPI and below Exam Const: General: alert Orientation/consciousness: patient oriented x3 Resp: Auscultation: clear to auscultation bilaterally Cardio: Rhythm: regular rhythm GI: GI Palp: Yes Soft to palpation and No Tenderness to palpation present (GI) Neuro: General: patient oriented x3 Objective Data Vital Signs Vital Signs: Vital Signs - 24 hr 09/12/21 16:00 09/12/21 20:00 09/12/21 21:22 Temperature 36.3 C L 36.7 C Pulse Rate 120 H 127 H 80 Respiratory Rate 18 18 18 Blood Pressure 99/60 L 108/89 Pulse Oximetry 96 96 09/13/21 00:00 09/13/21 04:00 09/13/21 08:00 Temperature 36.4 C L 36.3 C L 35.9 C L Pulse Rate 132 H 122 H 84 Respiratory Rate 18 18 18 Blood Pressure 102/58 L 101/50 L 100/58 L Pulse Oximetry 96 95 96 09/13/21 12:00 Temperature 36.3 C L Pulse Rate 93 Respiratory Rate 18 Blood Pressure 102/62 Pulse Oximetry 95 Intake/Output Intake/Output: Intake & Output 09/10/21 09/11/21 09/12/21 09/13/21 23:59 23:59 23:59 23:59 Intake Total 6320 6180 3480 520 Output Total 800 2 Balance 5520 6178 3480 520 Meds/Results Medications: Active Medications Generic Name Dose Route Start Last Admin Trade Name Freq PRN Reason Stop Dose Admin Al Hydrox/Mg Hydrox/Simethicone 30 ml 09/06/21 22:29 09/06/21 23:12 Mag Hydrox/Al Hydrox/Simeth 30 Ml Udc PO 30 ml Q6H PRN Administration Indigestion Albuterol 2 puff 09/03/21 23:51 09/12/21 21:21 Albuterol Sulfate (*Sp) Aerosol 1 Puff INHALATION 2 puff Q4H PRN Administration Shortness Of Breath Or Wheezing Budesonide 9 mg 09/13/21 09:00 Budesonide 3 Mg Cap.Sr.24h PO QAM ELICIA Diltiazem HCl 30 mg 09/11/21 06:00 09/13/21 06:12 Diltiazem Hcl 30 Mg Tablet PO 30 mg Q6HR ELICIA Administration Fluticasone Propionate 2 puff 09/04/21 08:00 09/13/21 10:55 Fluticasone Prop 110 Mcg Inhaler 1 Puff INHALATION Not Given Q12HRT ELICIA Linezolid 600 mg in 300 mls @ 300 mls/hr 09/08/21 09:00 09/12/21 21:30 Zyvox IVPB Infused Q12HR ELICIA Infusion Ciprofloxacin/Dextrose 200 mls @ 200 mls/hr 09/11/21 11:10 09/13/21 10:49 Cipro 400 Mg/D5w 200 Ml IVPB 200 mls/hr Q12HR ELICIA Administration Lactulose 20 gm 09/07/21 17:00 Lactulose 20 Gm/30 Ml Udc PO BID ELICIA Metoprolol Tartrate 25 mg 09/04/21 09:00 12/15/21 18:21 Metoprolol Tartrate 25 Mg Tablet
--- NOTE | 2021-09-13 12:28 | PM.IMPN ---
Progress Note: A&P Assessment and Plan (1) Hypotension: Code(s): I95.9 - Hypotension, unspecified Status: Acute Assessment and Plan: BP was soft at times requiring fluid bolus. Midodrine added. BP better controlled. Blood pressure tolerating her being off IV fluids. Continue to monitor closely. (2) Atrial tachycardia: Code(s): I47.1 - Supraventricular tachycardia Status: Acute Assessment and Plan: Symptoms better but with intermittent tachycardia. Repeat EKG showing sinus mechanism. TSH normal. [place] related to the change in her clinical status from the ileitis. Continue to monitor on tele. Dopplers negative for DVT. Will manager of change to metoprolol. (3) Ileitis: Code(s): K52.9 - Noninfective gastroenteritis and colitis, unspecified Status: Acute Assessment and Plan: Patient developed nausea and vomiting 09/[address] showing chronic distal pSBO vs ileus. WBC up to 14 but normalized. LA climbed to 3.7 but normal now. Clinically improved. Procalcitonin normal. SBFT showing multiple segments of intervening small bowel narrowing and dilation with mucosal irregularity. No significant obstruction of flow of contrast to the colon. Transit time was less than 2 hours. There is haustral irregularity in the proximal colon. Most likely considerations include IBD (i.e. Crohn's disease) and infection. She was started on Flagyl and Primaxin but will change to Flagyl and Cipro. Abd more distended today. Anti-sacharomyces Ab and calprotectin pending. Enterocort started. Diet advanced. Resume lactulose? Appreciate GI input. Walk in halls. (4) Ileus: Code(s): K56.7 - Ileus, unspecified Status: Acute Assessment and Plan: As above (5) Thrombosis: Code(s): I82.90 - Acute embolism and thrombosis of unspecified vein Status: Acute Assessment and Plan: Also noted by CT of the Abd 09/07 was partial thrombosis without occlusion of the SMV and portal vein. Anticoagulation held due to thrombocytopenia, anemia and varices. (6) Bacteremia: Code(s): R78.81 - Bacteremia Status: Acute Assessment and Plan: On 07/22/21, patient was hospitalized and found to have Coag Negative Staph in blood and urine cultures. She was treated with Vancomycin through 08/04/21. -BCx collected 09/03 have returned Coag Negative Staph in both bottles. -UA clear. No skin lesions to suggest source. -Repeat BCx 09/05 NGTD. -Echo did not show vegetations. -CT scan showing possible spinal osteomyelitis but MRI showing no evidence of diskitis or osteomyelitis. There is peripheral displacement of the cauda equina at L5 consistent with arachnoiditis. Resume PT and OT. Will follow clinically. -Currently on linezolid. Appreciate ID input. Continue the same. (7) Pancytopenia: Code(s): D61.818 - Other pancytopenia Status: Acute Assessment and Plan: Leukopenia to 2600. Possibly related to abx since both Primaxin and Linezolid can cause myelosuppression. She was changed from Primaxin to Cipro. WBC normal now. Anemia noted now. Hgb was normal in the 13 range but dropped to 9-10 range. Irons tudies noted and probably related to her cirrhosis. Follow TCP is chronic (since at least 2018) related to underlying liver disease. Plt count dropping to 29K but improved on repeat. Possibly due to the abx. Plt count better at 48K. Follow (8) Nausea & vomiting: Code(s): R11.2 - Nausea with vomiting, unspecified Status: Acute Assessment and Plan: As above (9) Altered mental status: Qualifiers: Altered mental status type: stupor Qualified Code(s): R40.1 - Stupor Code(s): R41.82 - Altered mental status, unspecified Status: Acute Assessment and Plan: -CRP, TSH, B12 normal. Hx of gallbladder issues but no signs of infection -Brain MR shows no acute infarction suspected. There are old right f
[2021-09-13] MEDS: LINEZOLID 600 MG/300 ML 600 MG/300 ML SOLN 300 MG IVPB ×2 (12:41→21:20)
[2021-09-13] MEDS: BUDESONIDE 3 MG CAP.SR.24H 9 MG PO (12:41)
[2021-09-13] MEDS: PANTOPRAZOLE 40 MG TABLET PO (12:42)
--- NOTE | 2021-09-13 15:09 | PCSTNOTE ---
Please refer to the Bedside Swallow Evaluation in the EMR. Please note, silent aspiration cannot be ruled out at bedside.
[2021-09-13] MEDS: MAGNESIUM SULF 2 GM/WATER 50ML 2 GM/50 ML BAG IVPB (16:45)
[2021-09-13] MEDS: METOPROLOL TARTRATE 12.5 MG TABLET PO (21:19)
[2021-09-13] MEDS: ALBUTEROL SULFATE (*SP) AEROSOL 1 PUFF 2 PUFF INHALATION (21:49)
[2021-09-14] VITALS (10 sets, daily range): BP systolic 94–110; BP diastolic 50–70; PULSE 80–125; RESP 16–18; TEMP 36.1–37.1; O2SAT 91–95
[2021-09-14] MEDS: METOPROLOL TARTRATE 12.5 MG TABLET PO ×3 (05:23→21:07)
[2021-09-14] MEDS: metroNIDAZOLE 250 MG TABLET 500 MG PO ×3 (05:23→21:06)
[2021-09-14 06:26] LABS: Hematocrit 27.3 % (37.0-47.0); Mean Corpuscular Hemoglobin 31.6 pg (26-34); Mean Corpuscular Volume 95.8 fl (80-100); Mean Platelet Volume 10.1 fl (7.4-10.4); Platelet Count Result 26 k/mm3 (150-375); Red Blood Count 2.85 M/mm3 (4.2-5.4); Red Cell Distribution Width 14.9 % (11.5-14.5); White Blood Count 3.3 K/mm3 (4.5-10.0)
[2021-09-14 06:28] LABS: Albumin Level 2.6 g/dL (3.5-5.1); Anion Gap 2 mmol/L (8-16); Blood Urea Nitrogen 7 mg/dL (7-17); Calcium 8.2 mg/dL (8.4-10.2); Carbon Dioxide 28 mmol/L (22-30); Chloride 104 mmol/L (98-107); Estimated CRCL calculation 179 ml/min; Estimated Glomerular Filt Rate > 60; Glucose 146 mg/dL (65-110); Magnesium 1.9 mg/dL (1.6-2.3); Phosphorus 2.3 mg/dL (2.5-4.5); Potassium 3.5 mmol/L (3.4-5.0); Sodium 134 mmol/L (137-145)
--- NOTE | 2021-09-14 08:31 | PCOTNOTE ---
Attempted to see pt. this AM, pt. out of room for testing.
--- NOTE | 2021-09-14 08:56 | WPDGIPROGNO ---
Progress Note: A&P Assessment and Plan (1) Ileitis: Code(s): K52.9 - Noninfective gastroenteritis and colitis, unspecified Status: Acute Assessment and Plan: I will schedule her for small-bowel series to see if she has had resolution of the previous stenotic areas.-- It is in progress now his mind about bleeding that we cannot get results of inflammatory bowel disease studies. Outside laboratories usually have a turnaround time of about 1 day (2) Hepatitis C: Code(s): B19.20 - Unspecified viral hepatitis C without hepatic coma Status: Acute Assessment and Plan: Hepatitis titers have been drawn and are pending (3) Sepsis: Qualifiers: Sepsis acute organ dysfunction status: unspecified Sepsis type: sepsis due to unspecified organism Qualified Code(s): A41.9 - Sepsis, unspecified organism Code(s): A41.9 - Sepsis, unspecified organism Status: Acute Assessment and Plan: currently on Cipro. She does not know a time frame as to how long she will require antibiotics Subjective Date/time seen: 09/14/21 08:56 she is currently undergoing her small bowel series. if no significant change from the previous 1, then we will need to assume that she has regional enteritis. Will also need to keep her on a diet low in plant fiber--- particularly avoiding all fruits and vegetables except in a pureed form such as apple sauce, tomato juice or soft cooked carrots, squash, potatos! Exam Const: General: alert Nutritional Appearance: average body habitus Orientation/consciousness: patient oriented x3 Resp: Auscultation: clear to auscultation bilaterally Cardio: Rhythm: regular rhythm Neuro: General: patient oriented x3 Objective Data Vital Signs Vital Signs: Vital Signs - 24 hr 09/13/21 12:00 09/13/21 15:51 09/13/21 16:00 Temperature 36.3 C L 35.9 C L Pulse Rate 123 H 91 102 H Respiratory Rate 18 18 Blood Pressure 102/62 108/69 Pulse Oximetry 95 100 09/13/21 20:00 09/13/21 21:19 09/14/21 00:00 Temperature 36.6 C 36.3 C L Pulse Rate 131 H 122 H 120 H Respiratory Rate 18 18 Blood Pressure 109/68 110/70 Pulse Oximetry 93 91 09/14/21 04:00 09/14/21 05:23 Temperature 36.1 C L Pulse Rate 111 H 80 Respiratory Rate 18 Blood Pressure 100/63 Pulse Oximetry 92 Intake/Output Intake/Output: Intake & Output 09/11/21 09/12/21 09/13/21 09/14/21 23:59 23:59 23:59 23:59 Intake Total 6180 3480 2152 350 Output Total 2 Balance 6178 3480 2152 350 Meds/Results Medications: Active Medications Generic Name Dose Route Start Last Admin Trade Name Freq PRN Reason Stop Dose Admin Al Hydrox/Mg Hydrox/Simethicone 30 ml 09/06/21 22:29 09/06/21 23:12 Mag Hydrox/Al Hydrox/Simeth 30 Ml Udc PO 30 ml Q6H PRN Administration Indigestion Albuterol 2 puff 09/03/21 23:51 09/13/21 21:49 Albuterol Sulfate (*Sp) Aerosol 1 Puff INHALATION 2 puff Q4H PRN Administration Shortness Of Breath Or Wheezing Budesonide 9 mg 09/13/21 09:00 09/13/21 12:41 Budesonide 3 Mg Cap.Sr.24h PO 9 mg QAM ELICIA Administration Fluticasone Propionate 2 puff 09/04/21 08:00 09/13/21 20:00 Fluticasone Prop 110 Mcg Inhaler 1 Puff INHALATION 2 puff Q12HRT ELICIA Administration Linezolid 600 mg in 300 mls @ 300 mls/hr 09/08/21 09:00 09/13/21 22:20 Zyvox IVPB Infused Q12HR ELICIA Infusion Ciprofloxacin/Dextrose 200 mls @ 200 mls/hr 09/11/21 11:10 09/13/21 21:18 Cipro 400 Mg/D5w 200 Ml IVPB Infused Q12HR ELICIA Infusion Lactulose 20 gm 09/07/21 17:00 Lactulose 20 Gm/30 Ml Udc PO BID ELICIA Metoprolol Tartrate 12.5 mg 09/13/21 22:00 09/14/21 05:23 Metoprolol Tartrate 12.5 Mg Tablet PO 12.5 mg Q8H ELICIA Administration Metronidazole 500 mg 09/12/21 14:00 09/14/21 05:23 Metronidazole 250 Mg Tablet PO 500 mg Q8HR ELICIA Administration Midodrine 5 mg 09/10/21 19:55 09/13/21 16:48 Midodrine
--- NOTE | 2021-09-14 09:28 | PCPTNOTE ---
The patient treatment was not able to be completed due to patient out of room for testing. Will plan to continue treatment per plan of care.
--- NOTE | 2021-09-14 10:26 | PCOTNOTE ---
Patient treatment unable to be completed this date due to testing. Will continue with treatment as according to plan of care.
[2021-09-14] MEDS: POTASSIUM CHLORIDE 20 MEQ PACKET (FOR LIQUID) 40 MEQ PO ×2 (11:59→17:37)
[2021-09-14] MEDS: BUDESONIDE 3 MG CAP.SR.24H 9 MG PO (12:00)
[2021-09-14] MEDS: THERAPEUTIC MULTIVITAMINS/MINERALS TAB (*BKC) 1 TABLET PO (12:00)
[2021-09-14] MEDS: OLANZapine 2.5 MG TABLET PO (12:00)
[2021-09-14] MEDS: MIDODRINE HCL 2.5 MG TABLET 5 MG PO ×2 (12:01→17:37)
[2021-09-14] MEDS: PANTOPRAZOLE 40 MG TABLET PO (12:01)
[2021-09-14] MEDS: LINEZOLID 600 MG/300 ML 600 MG/300 ML SOLN 300 MG IVPB ×2 (12:02→19:56)
[2021-09-14] MEDS: CIPROFLOXACIN 400 MG/D5W 200ML 200 ML 200 MG IVPB ×2 (12:03→19:58)
--- NOTE | 2021-09-14 13:28 | PCRCNOTE ---
Window of time for administration has passed. See next scheduled administration.
[2021-09-14] MEDS: POTASSIUM/PHOSPHORUS/SODIUM 1.5 GM PACKET 1 PACKET PO (14:09)
--- NOTE | 2021-09-14 14:10 | PM.IMPN ---
Progress Note: A&P Assessment and Plan (1) Hypotension: Code(s): I95.9 - Hypotension, unspecified Status: Acute Assessment and Plan: BP was soft at times requiring fluid bolus. Midodrine added. BP better controlled and tolerating the Lopressor. Blood pressure tolerating her being off IV fluids. Continue to monitor closely. (2) Atrial tachycardia: Code(s): I47.1 - Supraventricular tachycardia Status: Acute Assessment and Plan: Symptoms better but with intermittent tachycardia still. EKG showing sinus mechanism. TSH normal. [place] related to the change in her clinical status from the ileitis. Dopplers negative for DVT 09/12. Continue metoprolol. Okay to stop tele (3) Ileitis: Code(s): K52.9 - Noninfective gastroenteritis and colitis, unspecified Status: Acute Assessment and Plan: Patient developed nausea and vomiting 09/[address] showing chronic distal pSBO vs ileus. WBC up to 14 but normalized. LA climbed to 3.7 but normal now. Clinically improved. Procalcitonin normal. SBFT showing multiple segments of intervening small bowel narrowing and dilation with mucosal irregularity. No significant obstruction of flow of contrast to the colon. Transit time was less than 2 hours. There is haustral irregularity in the proximal colon. Most likely considerations include IBD (i.e. Crohn's disease) and infection. She is on Flagyl and Cipro. Anti-sacharomyces Ab and calprotectin pending. Enterocort started. Diet as detailed by GI. SBFT pending. Having frequent BMs so will hold lactulose. Appreciate GI input. (4) Ileus: Code(s): K56.7 - Ileus, unspecified Status: Acute Assessment and Plan: As above (5) Thrombosis: Code(s): I82.90 - Acute embolism and thrombosis of unspecified vein Status: Acute Assessment and Plan: Also noted by CT of the Abd 09/07 was partial thrombosis without occlusion of the SMV and portal vein. Anticoagulation held due to thrombocytopenia, anemia and varices. (6) Bacteremia: Code(s): R78.81 - Bacteremia Status: Acute Assessment and Plan: On 07/22/21, patient was hospitalized and found to have Coag Negative Staph in blood and urine cultures. She was treated with Vancomycin through 08/04/21. -BCx collected 09/03 have returned Coag Negative Staph in both bottles. -UA clear. No skin lesions to suggest source. -Repeat BCx 09/05 NGTD. -Echo did not show vegetations. -CT scan showing possible spinal osteomyelitis but MRI showing no evidence of diskitis or osteomyelitis. There is peripheral displacement of the cauda equina at L5 consistent with arachnoiditis. Continue PT and OT. Will follow clinically. -Currently on linezolid. Appreciate ID input. Plan for Linezolid through 10/02/21. Continue the same. (7) Pancytopenia: Code(s): D61.818 - Other pancytopenia Status: Acute Assessment and Plan: Leukopenia to 2600. Possibly related to abx since both Primaxin and Linezolid can cause myelosuppression. She was changed from Primaxin to Cipro. WBC dropped again today tp 3300 Anemia noted now. Hgb was normal in the 13 range but dropped to 9-10 range. Irons studies noted and probably related to her cirrhosis. Follow. TCP is chronic (since at least 2018) related to underlying liver disease. Plt count dropping to 29K but improved on repeat but now back down to 26K. Possibly due to the abx. No evidence of bleeding. Follow. Transfuse as needed (8) Nausea & vomiting: Code(s): R11.2 - Nausea with vomiting, unspecified Status: Acute Assessment and Plan: As above (9) Altered mental status: Qualifiers: Altered mental status type: stupor Qualified Code(s): R40.1 - Stupor Code(s): R41.82 - Altered mental status, unspecified Status: Acute Assessment and Plan: -CRP, TSH, B12 normal. Hx of gallbladder issues but no signs of infection
[2021-09-15] VITALS (9 sets, daily range): BP systolic 89–117; BP diastolic 55–70; PULSE 91–119; RESP 17–18; TEMP 36.1–37.1; O2SAT 92–98
[2021-09-15] MEDS: METOPROLOL TARTRATE 12.5 MG TABLET PO ×3 (05:50→22:14)
[2021-09-15] MEDS: metroNIDAZOLE 250 MG TABLET 500 MG PO ×3 (05:51→22:14)
[2021-09-15 06:20] LABS: Albumin Level 2.7 g/dL (3.5-5.1); Anion Gap 1 mmol/L (8-16); Blood Urea Nitrogen 11 mg/dL (7-17); CRP 1.1 mg/dL (<1.0); Calcium 8.1 mg/dL (8.4-10.2); Carbon Dioxide 26 mmol/L (22-30); Chloride 107 mmol/L (98-107); Estimated CRCL calculation 179 ml/min; Estimated Glomerular Filt Rate > 60; Glucose 127 mg/dL (65-110); Phosphorus 2.1 mg/dL (2.5-4.5); Potassium 3.2 mmol/L (3.4-5.0); Sodium 134 mmol/L (137-145)
[2021-09-15 06:54] LABS: Basophils Percent Auto 0.2 % (0.2-1.2); Eosinophils Percent Auto 0.2 % (0-4.4); Hematocrit 28.8 % (37.0-47.0); Hemoglobin 9.7 g/dL (12.0-15.0); Immature Granulocyte Absolute 0.05 K/mm3 (0.00-0.031); Immature Granulocyte Percent A 0.9 % (0-0.5); Immature Platelet Fraction Pct 6.2 % (0.9-11.2); Lymphocytes Absolute Auto 0.43 K/mm3 (0.9-3.2); Lymphocytes Percent Auto 7.4 % (18.3-44.2); Mean Corpuscular HGB Conc 33.7 g/dl (32-36); Mean Corpuscular Hemoglobin 32.1 pg (26-34); Mean Corpuscular Volume 95.4 fl (80-100); Mean Platelet Volume 11.3 fl (7.4-10.4); Monocytes Absolute Auto 0.3 K/mm3 (0.1-0.6); Monocytes Percent Auto 4.6 % (2.6-8.5); Neutrophils Percent Auto 86.7 % (45.5-73.1); Platelet Count Result 37 k/mm3 (150-375); Red Blood Count 3.02 M/mm3 (4.2-5.4); White Blood Count 5.8 K/mm3 (4.5-10.0)
[2021-09-15] MEDS: POTASSIUM CHLORIDE 20 MEQ PACKET (FOR LIQUID) PO (09:35)
[2021-09-15] MEDS: POTASSIUM CHLORIDE 20 MEQ PACKET (FOR LIQUID) 40 MEQ PO ×2 (09:35→16:08)
[2021-09-15] MEDS: MIDODRINE HCL 2.5 MG TABLET 5 MG PO ×3 (09:36→16:08)
[2021-09-15] MEDS: CIPROFLOXACIN 400 MG/D5W 200ML 200 ML 200 MG IVPB ×2 (09:36→22:14)
[2021-09-15] MEDS: BUDESONIDE 3 MG CAP.SR.24H 9 MG PO (09:36)
[2021-09-15] MEDS: THERAPEUTIC MULTIVITAMINS/MINERALS TAB (*BKC) 1 TABLET PO (09:37)
[2021-09-15] MEDS: OLANZapine 2.5 MG TABLET PO (09:37)
[2021-09-15] MEDS: PANTOPRAZOLE 40 MG TABLET PO (09:37)
[2021-09-15] MEDS: LINEZOLID 600 MG/300 ML 600 MG/300 ML SOLN 300 MG IVPB ×2 (11:14→23:37)
--- NOTE | 2021-09-15 13:31 | PM.IMPN ---
Progress Note: A&P Assessment and Plan (1) Hypotension: Code(s): I95.9 - Hypotension, unspecified Status: Acute Assessment and Plan: BP soft Continue Midodrine added BP better controlled Hold Lopressor for SBP <100 Continue to monitor closely (2) Atrial tachycardia: Code(s): I47.1 - Supraventricular tachycardia Status: Acute Assessment and Plan: Symptoms better but with intermittent tachycardia TSH normal [place] related to the change in her clinical status from the ileitis Dopplers negative for DVT 09/12 Continue metoprolol Okay to stop tele (3) Ileitis: Code(s): K52.9 - Noninfective gastroenteritis and colitis, unspecified Status: Acute Assessment and Plan: Patient developed nausea and vomiting 09/[address] showing chronic distal pSBO vs ileus WBC up to 14 but normalized. LA climbed to 3.7 but normal now Procalcitonin normal SBFT showing multiple segments of intervening small bowel narrowing and dilation with mucosal irregularity No significant obstruction of flow of contrast to the colon Transit time was less than 2 hours. There is haustral irregularity in the proximal colon. Most likely considerations include IBD (i.e. Crohn's disease) and infection. Continue Flagyl and Cipro Anti-sacharomyces Ab and calprotectin pending Enterocort started Diet as detailed by GI SBFT-->Nonspecific mild small bowel dilatation and ileal mucosal fold thickening Lactulose held due to frequent BMs Appreciate GI input (4) Ileus: Code(s): K56.7 - Ileus, unspecified Status: Acute Assessment and Plan: As above (5) Thrombosis: Code(s): I82.90 - Acute embolism and thrombosis of unspecified vein Status: Acute Assessment and Plan: Also noted by CT of the Abd 09/07 was partial thrombosis without occlusion of the SMV and portal vein Anticoagulation held due to thrombocytopenia, anemia and varices (6) Bacteremia: Code(s): R78.81 - Bacteremia Status: Acute Assessment and Plan: On 07/22/21, patient was hospitalized and found to have Coag Negative Staph in blood and urine cultures. She was treated with Vancomycin through 08/04/21. -BCx collected 09/03 have returned Coag Negative Staph in both bottles. -UA clear. No skin lesions to suggest source. -Repeat BCx 09/05 NGTD. -Echo did not show vegetations. -CT scan showing possible spinal osteomyelitis but MRI showing no evidence of diskitis or osteomyelitis. There is peripheral displacement of the cauda equina at L5 consistent with arachnoiditis Continue PT and OT -Continue linezolid. Appreciate ID input. Plan for Linezolid through 10/02/21 (7) Pancytopenia: Code(s): D61.818 - Other pancytopenia Status: Acute Assessment and Plan: Leukopenia to 2.6-->3.4-->2.8-->4.8-->3.3-->5.8 Possibly related to abx since both Primaxin and Linezolid can cause myelosuppression She was changed from Primaxin to Cipro Anemia noted. Hgb was normal in the 13 range but dropped to 9-10 range Irons studies noted and probably related to her cirrhosis. Follow. TCP is chronic (since at least 2018) related to underlying liver disease Plt 29-->37-->36-->48-->26-->37, possibly due to the abx No evidence of bleeding Transfuse as needed Monitor (8) Nausea & vomiting: Code(s): R11.2 - Nausea with vomiting, unspecified Status: Acute Assessment and Plan: As above (9) Altered mental status: Qualifiers: Altered mental status type: stupor Qualified Code(s): R40.1 - Stupor Code(s): R41.82 - Altered mental status, unspecified Status: Acute Assessment and Plan: -CRP, TSH, B12 normal Hx of gallbladder issues but no signs of infection -Brain MR shows no acute infarction suspected. 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 -Carotid US normal -Confusion possibly related to the positive blood
[2021-09-15 13:49] LABS: ANCA Screen Negative (Negative); Myeloperoxidase Ab <1.0 AI (<1.0); Proteinase-3 Ab <1.0 AI (<1.0); S cerevisiae Ab (IgA) 136.1 U (<=20.0); S cerevisiae Ab (IgG) 84.1 U (<=20.0)
[2021-09-16] VITALS (7 sets, daily range): BP systolic 93–117; BP diastolic 60–69; PULSE 61–116; RESP 15–20; TEMP 36.1–37.6; O2SAT 90–97
[2021-09-16 05:56] LABS: Anion Gap -1 mmol/L (8-16); Blood Urea Nitrogen 15 mg/dL (7-17); Calcium 8.1 mg/dL (8.4-10.2); Carbon Dioxide 27 mmol/L (22-30); Chloride 108 mmol/L (98-107); Estimated CRCL calculation 140 ml/min; Estimated Glomerular Filt Rate > 60; Glucose 169 mg/dL (65-110); Potassium 3.7 mmol/L (3.4-5.0); Sodium 134 mmol/L (137-145)
[2021-09-16] MEDS: METOPROLOL TARTRATE 12.5 MG TABLET PO ×2 (06:19→13:55)
[2021-09-16] MEDS: metroNIDAZOLE 250 MG TABLET 500 MG PO ×3 (06:20→21:52)
[2021-09-16] MEDS: CIPROFLOXACIN 400 MG/D5W 200ML 200 ML 200 MG IVPB ×2 (08:26→22:55)
[2021-09-16] MEDS: PANTOPRAZOLE 40 MG TABLET PO (08:28)
[2021-09-16] MEDS: BUDESONIDE 3 MG CAP.SR.24H 9 MG PO (08:28)
[2021-09-16] MEDS: THERAPEUTIC MULTIVITAMINS/MINERALS TAB (*BKC) 1 TABLET PO (08:28)
[2021-09-16] MEDS: OLANZapine 2.5 MG TABLET PO (08:29)
[2021-09-16] MEDS: MIDODRINE HCL 2.5 MG TABLET 5 MG PO ×3 (08:29→16:53)
[2021-09-16] MEDS: POTASSIUM CHLORIDE 20 MEQ PACKET (FOR LIQUID) 40 MEQ PO (08:30)
[2021-09-16] MEDS: LINEZOLID 600 MG/300 ML 600 MG/300 ML SOLN 300 MG IVPB ×2 (09:36→21:51)
--- NOTE | 2021-09-16 12:56 | P.PNIM_ITS ---
Progress Note: A&P Assessment and Plan (1) Hypotension: Code(s): I95.9 - Hypotension, unspecified Status: Acute Assessment and Plan: BP soft Continue Midodrine added BP better controlled Hold Lopressor for SBP <100 Continue to monitor closely (2) Atrial tachycardia: Code(s): I47.1 - Supraventricular tachycardia Status: Acute Assessment and Plan: Symptoms better but with intermittent tachycardia TSH normal [place] related to the change in her clinical status from the ileitis Dopplers negative for DVT 09/12 Continue metoprolol Okay to stop tele (3) Ileitis: Code(s): K52.9 - Noninfective gastroenteritis and colitis, unspecified Status: Acute Assessment and Plan: Patient developed nausea and vomiting 09/[address] showing chronic distal pSBO vs ileus WBC up to 14 but normalized. LA climbed to 3.7 but normal now Procalcitonin normal SBFT showing multiple segments of intervening small bowel narrowing and dilation with mucosal irregularity No significant obstruction of flow of contrast to the colon Transit time was less than 2 hours. There is haustral irregularity in the proximal colon. Most likely considerations include IBD (i.e. Crohn's disease) and infection. Continue Flagyl and Cipro Anti-sacharomyces Ab and calprotectin pending Enterocort started Diet as detailed by GI SBFT-->Nonspecific mild small bowel dilatation and ileal mucosal fold thickening Lactulose held due to frequent BMs Appreciate GI input (4) Ileus: Code(s): K56.7 - Ileus, unspecified Status: Acute Assessment and Plan: As above (5) Thrombosis: Code(s): I82.90 - Acute embolism and thrombosis of unspecified vein Status: Acute Assessment and Plan: Also noted by CT of the Abd 09/07 was partial thrombosis without occlusion of the SMV and portal vein Anticoagulation held due to thrombocytopenia, anemia and varices (6) Bacteremia: Code(s): R78.81 - Bacteremia Status: Acute Assessment and Plan: On 07/22/21, patient was hospitalized and found to have Coag Negative Staph in blood and urine cultures. She was treated with Vancomycin through 08/04/21. -BCx collected 09/03 have returned Coag Negative Staph in both bottles. -UA clear. No skin lesions to suggest source. -Repeat BCx 09/05 NGTD. -Echo did not show vegetations. -CT scan showing possible spinal osteomyelitis but MRI showing no evidence of diskitis or osteomyelitis. There is peripheral displacement of the cauda equina at L5 consistent with arachnoiditis Continue PT and OT -Continue linezolid. Appreciate ID input. Plan for Linezolid through 10/02/21 (7) Pancytopenia: Code(s): D61.818 - Other pancytopenia Status: Acute Assessment and Plan: Leukopenia to 2.6-->3.4-->2.8-->4.8-->3.3-->5.8 Possibly related to abx since both Primaxin and Linezolid can cause myelosuppression She was changed from Primaxin to Cipro Anemia noted. Hgb was normal in the 13 range but dropped to 9-10 range Irons studies noted and probably related to her cirrhosis. Follow. TCP is chronic (since at least 2019) related to underlying liver disease Plt 29-->37-->36-->48-->26-->37, possibly due to the abx No evidence of bleeding Transfuse as needed Monitor (8) Nausea & vomiting: Code(s): R11.2 - Nausea with vomiting, unspecified Status: Acute Assessment and Plan: As above (9) Altered mental status: Qualifiers: Altered mental status typ
[2021-09-17] VITALS (9 sets, daily range): BP systolic 95–112; BP diastolic 63–72; PULSE 51–124; RESP 18–20; TEMP 36.6–37.2; O2SAT 92–97
[2021-09-17 06:08] LABS: Basophils Percent Auto 0.2 % (0.2-1.2); Eosinophils Percent Auto 0.5 % (0-4.4); Hematocrit 28.3 % (37.0-47.0); Hemoglobin 9.4 g/dL (12.0-15.0); Immature Granulocyte Absolute 0.03 K/mm3 (0.00-0.031); Immature Granulocyte Percent A 0.7 % (0-0.5); Immature Platelet Fraction Pct 6.3 % (0.9-11.2); Lymphocytes Absolute Auto 0.46 K/mm3 (0.9-3.2); Lymphocytes Percent Auto 11.4 % (18.3-44.2); Mean Corpuscular HGB Conc 33.2 g/dl (32-36); Mean Corpuscular Hemoglobin 31.6 pg (26-34); Mean Corpuscular Volume 95.3 fl (80-100); Mean Platelet Volume 11.8 fl (7.4-10.4); Monocytes Absolute Auto 0.4 K/mm3 (0.1-0.6); Monocytes Percent Auto 9.1 % (2.6-8.5); Neutrophils Absolute Auto 3.2 K/mm3 (1.3-6.7); Neutrophils Percent Auto 78.1 % (45.5-73.1); Platelet Count Result 42 k/mm3 (150-375); Red Blood Count 2.97 M/mm3 (4.2-5.4); White Blood Count 4.1 K/mm3 (4.5-10.0)
[2021-09-17 06:16] LABS: Alanine Aminotransferase 17 U/L (4-35); Albumin Level 2.8 g/dL (3.5-5.1); Alkaline Phosphatase 76 U/L (38-126); Anion Gap -1 mmol/L (8-16); Aspartate Amino Transferase 20 U/L (14-36); Bilirubin,Total 1.2 mg/dL (0.2-1.3); Blood Urea Nitrogen 12 mg/dL (7-17); Calcium 8.5 mg/dL (8.4-10.2); Carbon Dioxide 27 mmol/L (22-30); Chloride 107 mmol/L (98-107); Estimated CRCL calculation 178 ml/min; Estimated Glomerular Filt Rate > 60; Glucose 115 mg/dL (65-110); Potassium 3.4 mmol/L (3.4-5.0); Sodium 133 mmol/L (137-145)
[2021-09-17] MEDS: metroNIDAZOLE 250 MG TABLET 500 MG PO ×3 (06:27→22:08)
--- NOTE | 2021-09-17 08:13 | PM.IMPN ---
Progress Note: A&P Assessment and Plan (1) Hypotension: Code(s): I95.9 - Hypotension, unspecified Status: Acute Assessment and Plan: BP soft Continue Midodrine added BP better controlled Hold Lopressor for SBP <100 Continue to monitor closely Up titrate midodrine to 10 mg t.i.d. (2) Atrial tachycardia: Code(s): I47.1 - Supraventricular tachycardia Status: Acute Assessment and Plan: Symptoms better but with intermittent tachycardia TSH normal [place] related to the change in her clinical status from the ileitis Dopplers negative for DVT 09/12 Continue metoprolol Okay to stop tele (3) Ileitis: Code(s): K52.9 - Noninfective gastroenteritis and colitis, unspecified Status: Acute Assessment and Plan: Patient developed nausea and vomiting 09/[address] showing chronic distal pSBO vs ileus WBC up to 14 but normalized. LA climbed to 3.7 but normal now Procalcitonin normal SBFT showing multiple segments of intervening small bowel narrowing and dilation with mucosal irregularity No significant obstruction of flow of contrast to the colon Transit time was less than 2 hours. There is haustral irregularity in the proximal colon. Most likely considerations include IBD (i.e. Crohn's disease) and infection. Continue Flagyl and Cipro Anti-sacharomyces Ab and calprotectin pending Enterocort started Diet as detailed by GI SBFT-->Nonspecific mild small bowel dilatation and ileal mucosal fold thickening Lactulose held due to frequent BMs Appreciate GI input IBD panel is positive suggestive of inflammatory bowel disease await recommendation from GI (4) Ileus: Code(s): K56.7 - Ileus, unspecified Status: Acute Assessment and Plan: As above (5) Thrombosis: Code(s): I82.90 - Acute embolism and thrombosis of unspecified vein Status: Acute Assessment and Plan: Also noted by CT of the Abd 09/07 was partial thrombosis without occlusion of the SMV and portal vein Anticoagulation held due to thrombocytopenia, anemia and varices (6) Bacteremia: Code(s): R78.81 - Bacteremia Status: Acute Assessment and Plan: On 07/22/21, patient was hospitalized and found to have Coag Negative Staph in blood and urine cultures. She was treated with Vancomycin through 08/04/21. -BCx collected 09/03 have returned Coag Negative Staph in both bottles. -UA clear. No skin lesions to suggest source. -Repeat BCx 09/05 NGTD. -Echo did not show vegetations. -CT scan showing possible spinal osteomyelitis but MRI showing no evidence of diskitis or osteomyelitis. There is peripheral displacement of the cauda equina at L5 consistent with arachnoiditis Continue PT and OT -Continue linezolid. Appreciate ID input. Plan for Linezolid through 10/02/21 (7) Pancytopenia: Code(s): D61.818 - Other pancytopenia Status: Acute Assessment and Plan: Leukopenia to 2.6-->3.4-->2.8-->4.8-->3.3-->5.8 Possibly related to abx since both Primaxin and Linezolid can cause myelosuppression She was changed from Primaxin to Cipro Anemia noted. Hgb was normal in the 13 range but dropped to 9-10 range Irons studies noted and probably related to her cirrhosis. Follow. TCP is chronic (since at least 2019) related to underlying liver disease Plt 29-->37-->36-->48-->26-->37, possibly due to the abx No evidence of bleeding Transfuse as needed Monitor (8) Nausea & vomiting: Code(s): R11.2 - Nausea with vomiting, unspecified Status: Acute Assessment and Plan: As above (9) Altered mental status: Qualifiers: Altered mental status type: stupor Qualified Code(s): R40.1 - Stupor Code(s): R41.82 - Altered mental status, unspecified Status: Acute Assessment and Plan: -CRP, TSH, B12 normal Hx of gallbladder issues but no signs of infection -Brain MR shows no acute infarction suspected. There are old right
[2021-09-17] MEDS: CIPROFLOXACIN 400 MG/D5W 200ML 200 ML 200 MG IVPB ×2 (09:56→20:31)
[2021-09-17] MEDS: OLANZapine 2.5 MG TABLET PO (09:57)
[2021-09-17] MEDS: POTASSIUM CHLORIDE 20 MEQ PACKET (FOR LIQUID) 40 MEQ PO (09:57)
[2021-09-17] MEDS: BUDESONIDE 3 MG CAP.SR.24H 9 MG PO (09:57)
[2021-09-17] MEDS: MIDODRINE HCL 2.5 MG TABLET 10 MG PO (09:57)
[2021-09-17] MEDS: PANTOPRAZOLE 40 MG TABLET PO (09:58)
[2021-09-17] MEDS: THERAPEUTIC MULTIVITAMINS/MINERALS TAB (*BKC) 1 TABLET PO (09:58)
[2021-09-17] MEDS: LINEZOLID 600 MG/300 ML 600 MG/300 ML SOLN 300 MG IVPB ×2 (11:00→22:09)
--- NOTE | 2021-09-17 12:05 | WPDGIPROGNO ---
Progress Note: A&P Assessment and Plan (1) Ileitis: Code(s): K52.9 - Noninfective gastroenteritis and colitis, unspecified Status: Acute Assessment and Plan: Ileitis suggested by a small bowel series. Partial small-bowel obstruction is suspected admission has resolved. IBD serology strongly suggestive of Crohn's disease. This along with her small-bowel series x-ray suggest Crohn's disease. Plan to start Pentasa orally. Would try to avoid steroids at this time. But this can be added if necessary. Elective outpatient colonoscopy under the direction of Dr. Andres is suggested at a later date electively to try to confirm Crohn's disease. (2) Hepatitis C: Code(s): B19.20 - Unspecified viral hepatitis C without hepatic coma Status: Acute Assessment and Plan: Patient felt to have cirrhosis on the basis of hepatitis-C. Outpatient follow-up suggested. Likely will need referral for treatment to [facility] for this. Subjective Date/time seen: 09/17/21 12:05 I am covering for Dr. alvarez today. Patient alert. Reports she is having diarrhea stools. Denies abdominal pain at present. No evidence for obstruction by recent small bowel series. Terminal ileitis suggested. Review of Systems Review of Systems: All systems reviewed & are unremarkable except as noted in HPI and below Exam Narrative: Physical exam reveals patient be alert. Vital signs stable. HEENT exam reveals no icterus. Lungs are clear. Abdomen bowel sounds are present soft no localized tenderness. Objective Data Vital Signs Vital Signs: Vital Signs - 24 hr 09/16/21 13:55 09/16/21 15:51 09/16/21 19:19 Temperature 96.9 F L Pulse Rate 106 H 115 H 88 Respiratory Rate 18 15 Blood Pressure 93/62 L Pulse Oximetry 96 09/16/21 20:00 09/17/21 00:00 09/17/21 04:00 Temperature 99.6 F 98.9 F 98.3 F Pulse Rate 85 111 H 109 H Respiratory Rate 18 20 18 Blood Pressure 111/61 95/66 L 99/63 L Pulse Oximetry 97 92 95 09/17/21 08:00 09/17/21 12:00 Temperature 98.6 F 97.9 F Pulse Rate 115 H 110 H Respiratory Rate 20 20 Blood Pressure 98/68 L 108/72 Pulse Oximetry 95 97 Intake/Output Intake/Output: Intake & Output 09/14/21 09/15/21 09/16/21 09/17/21 23:59 23:59 23:59 23:59 Intake Total 2190 3217 2177 640 Balance 2190 3217 2177 640 Meds/Results Medications: Active Medications Generic Name Dose Route Start Last Admin Trade Name Freq PRN Reason Stop Dose Admin Al Hydrox/Mg Hydrox/Simethicone 30 ml 09/06/21 22:29 09/06/21 23:12 Mag Hydrox/Al Hydrox/Simeth 30 Ml Udc PO 30 ml Q6H PRN Administration Indigestion Albuterol 2 puff 09/03/21 23:51 09/13/21 21:49 Albuterol Sulfate (*Sp) Aerosol 1 Puff INHALATION 2 puff Q4H PRN Administration Shortness Of Breath Or Wheezing Budesonide 9 mg 09/13/21 09:00 09/17/21 09:57 Budesonide 3 Mg Cap.Sr.24h PO 9 mg QAM ELICIA Administration Fluticasone Propionate 2 puff 09/04/21 08:00 09/17/21 08:40 Fluticasone Prop 110 Mcg Inhaler 1 Puff INHALATION 2 puff Q12HRT ELICIA Administration Linezolid 600 mg in 300 mls @ 300 mls/hr 09/08/21 09:00 09/16/21 21:51 Zyvox IVPB 300 mls/hr Q12HR ELICIA Administration Ciprofloxacin/Dextrose 200 mls @ 200 mls/hr 09/11/21 11:10 09/17/21 09:56 Cipro 400 Mg/D5w 200 Ml IVPB 200 mls/hr Q12HR ELICIA Administration Lactulose 20 gm 09/07/21 17:00 Lactulose 20 Gm/30 Ml Udc PO BID ELICIA Metoprolol Tartrate 12.5 mg 09/13/21 22:00 09/17/21 05:23 Metoprolol Tartrate 12.5 Mg Tablet PO Not Given Q8H ELICIA Metronidazole 500 mg 09/12/21 14:00 09/17/21 06:27 Metronidazole 250 Mg Tablet PO 500 mg Q8HR ELICIA Administration Midodrine 10 mg 09/17/21 09:00 09/17/21 09:57 Midodrine Hcl 2.5 Mg Tablet PO 10 mg TID ELICIA Administration Miscellaneous Information 1 each 09/17/21 00:01 Zyvox Order Will 09/1810/17/21 00:[address] [facility]
[2021-09-17] MEDS: MESALAMINE 250 MG CAP CR 1000 MG PO ×3 (14:46→20:29)
[2021-09-17] MEDS: MIDODRINE HCL 10 MG TABLET PO (18:28)
[2021-09-17] MEDS: POTASSIUM CHLORIDE 20 MEQ TABLET.ER 40 MEQ PO (20:29)
[2021-09-17] MEDS: METOPROLOL TARTRATE 12.5 MG TABLET PO (20:29)
--- NOTE | 2021-09-17 22:02 | PCRCNOTE ---
past time window for administration, see next available administration
[2021-09-18] VITALS (10 sets, daily range): BP systolic 90–114; BP diastolic 67–78; PULSE 53–125; RESP 18–22; TEMP 35.9–36.8; O2SAT 91–99
[2021-09-18] MEDS: METOPROLOL TARTRATE 12.5 MG TABLET PO ×3 (05:15→20:55)
[2021-09-18] MEDS: metroNIDAZOLE 250 MG TABLET 500 MG PO ×3 (05:16→20:56)
[2021-09-18 05:50] LABS: Alanine Aminotransferase 17 U/L (4-35); Alkaline Phosphatase 83 U/L (38-126); Anion Gap 1 mmol/L (8-16); Aspartate Amino Transferase 22 U/L (14-36); Blood Urea Nitrogen 14 mg/dL (7-17); Calcium 8.6 mg/dL (8.4-10.2); Carbon Dioxide 26 mmol/L (22-30); Chloride 107 mmol/L (98-107); Estimated CRCL calculation 140 ml/min; Estimated Glomerular Filt Rate > 60; Glucose 144 mg/dL (65-110); Magnesium 1.9 mg/dL (1.6-2.3); Potassium 4.2 mmol/L (3.4-5.0); Sodium 134 mmol/L (137-145)
[2021-09-18 06:30] LABS: Basophils Percent Auto 0.4 % (0.2-1.2); Eosinophils Percent Auto 0.4 % (0-4.4); Hematocrit 29.5 % (37.0-47.0); Hemoglobin 9.4 g/dL (12.0-15.0); Immature Granulocyte Absolute 0.04 K/mm3 (0.00-0.031); Immature Granulocyte Percent A 0.8 % (0-0.5); Immature Platelet Fraction Pct 4.8 % (0.9-11.2); Lymphocytes Absolute Auto 0.51 K/mm3 (0.9-3.2); Lymphocytes Percent Auto 10.3 % (18.3-44.2); Mean Corpuscular HGB Conc 31.9 g/dl (32-36); Mean Corpuscular Hemoglobin 31.1 pg (26-34); Mean Corpuscular Volume 97.7 fl (80-100); Mean Platelet Volume 11.5 fl (7.4-10.4); Monocytes Absolute Auto 0.5 K/mm3 (0.1-0.6); Monocytes Percent Auto 10.1 % (2.6-8.5); Neutrophils Absolute Auto 3.8 K/mm3 (1.3-6.7); Platelet Count Result 51 k/mm3 (150-375); Red Blood Count 3.02 M/mm3 (4.2-5.4); Red Cell Distribution Width 15.4 % (11.5-14.5); White Blood Count 4.9 K/mm3 (4.5-10.0)
[2021-09-18 08:38] LABS: Hepatitis C Viral RNA PCR <15 IU/mL
[2021-09-18] MEDS: CIPROFLOXACIN 400 MG/D5W 200ML 200 ML 200 MG IVPB ×2 (09:35→20:54)
[2021-09-18] MEDS: MIDODRINE HCL 10 MG TABLET PO ×3 (09:35→18:38)
[2021-09-18] MEDS: OLANZapine 2.5 MG TABLET PO (09:36)
[2021-09-18] MEDS: POTASSIUM CHLORIDE 20 MEQ TABLET.ER 40 MEQ PO ×2 (09:36→18:38)
[2021-09-18] MEDS: THERAPEUTIC MULTIVITAMINS/MINERALS TAB (*BKC) 1 TABLET PO (09:36)
[2021-09-18] MEDS: BUDESONIDE 3 MG CAP.SR.24H 9 MG PO (09:36)
[2021-09-18] MEDS: MESALAMINE 250 MG CAP CR 1000 MG PO ×4 (09:36→20:56)
[2021-09-18] MEDS: PANTOPRAZOLE 40 MG TABLET PO (09:36)
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
--- NOTE | 2021-09-18 12:27 | P.PNIM_ITS ---
Progress Note: A&P Assessment and Plan (1) Hypotension: Code(s): I95.9 - Hypotension, unspecified Status: Acute Assessment and Plan: BP soft Continue Midodrine added BP better controlled Hold Lopressor for SBP <100 Continue to monitor closely Up titrate midodrine to 10 mg t.i.d. (2) Atrial tachycardia: Code(s): I47.1 - Supraventricular tachycardia Status: Acute Assessment and Plan: Symptoms better but with intermittent tachycardia TSH normal [place] related to the change in her clinical status from the ileitis Dopplers negative for DVT 09/12 Continue metoprolol Okay to stop tele (3) Ileitis: Code(s): K52.9 - Noninfective gastroenteritis and colitis, unspecified Status: Acute Assessment and Plan: Patient developed nausea and vomiting 09/[address] showing chronic distal pSBO vs ileus WBC up to 14 but normalized. LA climbed to 3.7 but normal now Procalcitonin normal SBFT showing multiple segments of intervening small bowel narrowing and dilation with mucosal irregularity No significant obstruction of flow of contrast to the colon Transit time was less than 2 hours. There is haustral irregularity in the proximal colon. Most likely considerations include IBD (i.e. Crohn's disease) and infection. Continue Flagyl and Cipro Anti-sacharomyces Ab and calprotectin pending Enterocort started Diet as detailed by GI SBFT-->Nonspecific mild small bowel dilatation and ileal mucosal fold thickening Lactulose held due to frequent BMs Appreciate GI input IBD panel is positive suggestive of inflammatory bowel disease await recommendation from GI (4) Ileus: Code(s): K56.7 - Ileus, unspecified Status: Acute Assessment and Plan: As above Recheck x-ray abdomen today (5) Thrombosis: Code(s): I82.90 - Acute embolism and thrombosis of unspecified vein Status: Acute Assessment and Plan: Also noted by CT of the Abd 09/07 was partial thrombosis without occlusion of the SMV and portal vein Anticoagulation held due to thrombocytopenia, anemia and varices (6) Bacteremia: Code(s): R78.81 - Bacteremia Status: Acute Assessment and Plan: On 07/22/21, patient was hospitalized and found to have Coag Negative Staph in blood and urine cultures. She was treated with Vancomycin through 08/04/21. -BCx collected 09/03 have returned Coag Negative Staph in both bottles. -UA clear. No skin lesions to suggest source. -Repeat BCx 09/05 NGTD. -Echo did not show vegetations. -CT scan showing possible spinal osteomyelitis but MRI showing no evidence of diskitis or osteomyelitis. There is peripheral displacement of the cauda equina at L5 consistent with arachnoiditis Continue PT and OT -Continue linezolid. Appreciate ID input. Plan for Linezolid through 10/02/21 (7) Pancytopenia: Code(s): D61.818 - Other pancytopenia Status: Acute Assessment and Plan: Leukopenia to 2.6-->3.4-->2.8-->4.8-->3.3-->5.8 Possibly related to abx since both Primaxin and Linezolid can cause myelosuppression She was changed from Primaxin to Cipro Anemia noted. Hgb was normal in the 13 range but dropped to 9-10 range Irons studies noted and probably related to her cirrhosis. Follow. TCP is chronic (since at least 2019) related to underlying liver disease Plt 29-->37-->36-->48-->26-->37, possibly due to the abx No evidence of bleeding Transfuse as needed Monitor (8) Nausea & vomiting: Code(s): R11.2 - Nausea with vomiting, unspecified St
--- NOTE | 2021-09-18 12:54 | WPDGIPROGNO ---
Progress Note: A&P Assessment and Plan (1) Ileitis: Code(s): K52.9 - Noninfective gastroenteritis and colitis, unspecified Status: Acute Assessment and Plan: Patient with terminal ileitis. Small-bowel series seems to confirm this. Partial small-bowel obstruction now resolved. Patient likely has Crohn's disease given positive IBD serology. Will continue Pentasa orally. Budesonide has been started in will be tapered as an outpatient. Follow-up with Dr. Andres as an outpatient in several weeks is advised. (2) Hepatitis C: Code(s): B19.20 - Unspecified viral hepatitis C without hepatic coma Status: Acute Assessment and Plan: Patient with cirrhosis apparently on the basis of hepatitis C. This may need elective outpatient management. This can be followed up as an outpatient. (3) Cirrhosis: Code(s): K74.60 - Unspecified cirrhosis of liver Status: Acute Assessment and Plan: CT scan suggest cirrhosis of the liver. Supportive care for now. Follow-up electively. Subjective Date/time seen: 09/18/21 12:54 Patient alert states she is more comfortable today. Less frequent bowel movements. Tolerating diet. Review of Systems Review of Systems: All systems reviewed & are unremarkable except as noted in HPI and below Exam Narrative: Physical exam abdomen is soft. Modest distention and mild tympany. Bowel sounds are present. Patient had 2 bowel movements today. Objective Data Vital Signs Vital Signs: Vital Signs - 24 hr 09/17/21 14:56 09/17/21 16:00 09/17/21 20:00 Temperature 98.8 F 97.8 F Pulse Rate 51 L 124 H 117 H Respiratory Rate 20 18 Blood Pressure 112/68 102/66 Pulse Oximetry 97 95 09/17/21 20:29 09/17/21 20:30 09/18/21 00:00 Temperature 98.0 F Pulse Rate 122 H 122 H 53 L Respiratory Rate 20 Blood Pressure 114/67 Pulse Oximetry 91 09/18/21 04:00 09/18/21 05:15 09/18/21 08:00 Temperature 97.7 F 98.2 F Pulse Rate 120 H 125 H 124 H Respiratory Rate 18 22 H Blood Pressure 102/70 112/74 Pulse Oximetry 93 91 09/18/21 12:00 Temperature 96.7 F L Pulse Rate 90 Respiratory Rate 22 H Blood Pressure 90/69 L Pulse Oximetry 99 Intake/Output Intake/Output: Intake & Output 09/15/21 09/16/21 09/17/21 09/18/21 23:59 23:59 23:59 23:59 Intake Total 3217 2477 2360 1100 Balance 3217 2477 2360 1100 Meds/Results Medications: Active Medications Generic Name Dose Route Start Last Admin Trade Name Freq PRN Reason Stop Dose Admin Al Hydrox/Mg Hydrox/Simethicone 30 ml 09/06/21 22:29 09/06/21 23:12 Mag Hydrox/Al Hydrox/Simeth 30 Ml Udc PO 30 ml Q6H PRN Administration Indigestion Albuterol 2 puff 09/03/21 23:51 09/13/21 21:49 Albuterol Sulfate (*Sp) Aerosol 1 Puff INHALATION 2 puff Q4H PRN Administration Shortness Of Breath Or Wheezing Budesonide 9 mg 09/13/21 09:00 09/18/21 09:36 Budesonide 3 Mg Cap.Sr.24h PO 9 mg QAM ELICIA Administration Fluticasone Propionate 2 puff 09/04/21 08:00 09/18/21 10:36 Fluticasone Prop 110 Mcg Inhaler 1 Puff INHALATION 2 puff Q12HRT ELICIA Administration Ciprofloxacin/Dextrose 200 mls @ 200 mls/hr 09/11/21 11:10 09/18/21 10:35 Cipro 400 Mg/D5w 200 Ml IVPB Infused Q12HR ELICIA Infusion Lactulose 20 gm 09/07/21 17:00 Lactulose 20 Gm/30 Ml Udc PO BID ELICIA Mesalamine 1,000 mg 09/17/21 13:00 09/18/21 09:36 Mesalamine 250 Mg Cap Cr PO 1,000 mg QID ELICIA Administration Metoprolol Tartrate 12.5 mg 09/13/21 22:00 09/18/21 05:15 Metoprolol Tartrate 12.5 Mg Tablet PO 12.5 mg Q8H ELICIA Administration Metronidazole 500 mg 09/12/21 14:00 09/18/21 05:16 Metronidazole 250 Mg Tablet PO 500 mg Q8HR ELICIA Administration Midodrine 10 mg 09/17/21 17:00 09/18/21 09:35 Midodrine Hcl 10 Mg Tablet PO 10 mg TID ELICIA Administration Miscellaneous Information 1 each 09/17/21 00:01 Zyvox Order Will
[2021-09-18] MEDS: LINEZOLID 600 MG/300 ML 600 MG/300 ML SOLN 300 MG IVPB (20:53)
[2021-09-19] VITALS (12 sets, daily range): BP systolic 100–121; BP diastolic 55–74; PULSE 80–124; RESP 18–30; TEMP 36.6–37.6; O2SAT 91–96
[2021-09-19] MEDS: metroNIDAZOLE 250 MG TABLET 500 MG PO ×3 (06:07→20:50)
[2021-09-19] MEDS: METOPROLOL TARTRATE 12.5 MG TABLET PO ×3 (06:07→20:49)
[2021-09-19 06:32] LABS: Basophils Percent Auto 0.2 % (0.2-1.2); Eosinophils Percent Auto 0.8 % (0-4.4); Hematocrit 27.5 % (37.0-47.0); Hemoglobin 8.8 g/dL (12.0-15.0); Immature Granulocyte Absolute 0.04 K/mm3 (0.00-0.031); Immature Granulocyte Percent A 0.8 % (0-0.5); Immature Platelet Fraction Pct 5.1 % (0.9-11.2); Lymphocytes Percent Auto 10.1 % (18.3-44.2); Mean Corpuscular Hemoglobin 31.1 pg (26-34); Mean Corpuscular Volume 97.2 fl (80-100); Mean Platelet Volume 11.2 fl (7.4-10.4); Monocytes Absolute Auto 0.5 K/mm3 (0.1-0.6); Monocytes Percent Auto 10.1 % (2.6-8.5); Neutrophils Absolute Auto 3.9 K/mm3 (1.3-6.7); Platelet Count Result 51 k/mm3 (150-375); Red Blood Count 2.83 M/mm3 (4.2-5.4); Red Cell Distribution Width 15.2 % (11.5-14.5)
[2021-09-19 06:47] LABS: Alanine Aminotransferase 16 U/L (4-35); Albumin Level 2.8 g/dL (3.5-5.1); Alkaline Phosphatase 86 U/L (38-126); Anion Gap 3 mmol/L (8-16); Aspartate Amino Transferase 19 U/L (14-36); Bilirubin,Total 1.1 mg/dL (0.2-1.3); Blood Urea Nitrogen 16 mg/dL (7-17); Calcium 8.6 mg/dL (8.4-10.2); Carbon Dioxide 27 mmol/L (22-30); Chloride 106 mmol/L (98-107); Estimated CRCL calculation 141 ml/min; Estimated Glomerular Filt Rate > 60; Glucose 133 mg/dL (65-110); Magnesium 1.9 mg/dL (1.6-2.3); Potassium 4.1 mmol/L (3.4-5.0); Sodium 136 mmol/L (137-145)
[2021-09-19] MEDS: PANTOPRAZOLE 40 MG TABLET PO (08:22)
[2021-09-19] MEDS: POTASSIUM CHLORIDE 20 MEQ TABLET.ER 40 MEQ PO ×2 (08:22→16:54)
[2021-09-19] MEDS: MESALAMINE 250 MG CAP CR 1000 MG PO ×4 (08:23→20:50)
[2021-09-19] MEDS: MIDODRINE HCL 10 MG TABLET PO ×3 (08:23→16:53)
[2021-09-19] MEDS: OLANZapine 2.5 MG TABLET PO (08:24)
[2021-09-19] MEDS: BUDESONIDE 3 MG CAP.SR.24H 9 MG PO (08:24)
[2021-09-19] MEDS: THERAPEUTIC MULTIVITAMINS/MINERALS TAB (*BKC) 1 TABLET PO (08:24)
[2021-09-19] MEDS: CIPROFLOXACIN 400 MG/D5W 200ML 200 ML 200 MG IVPB ×2 (08:31→20:49)
--- NOTE | 2021-09-19 09:37 | PCOTNOTE ---
On 09/19/21, the student, Maryuri Shen, provided care and completed [facility]. I have reviewed the student's documentation and agree with the findings.
--- NOTE | 2021-09-19 10:00 | PCNWS ---
Weekly nutritional screen. Patient is tolerating current diet with adequate intake of 100% of all meals. No weight loss reported. No nutritional needs at this time.
[2021-09-19] MEDS: LINEZOLID 600 MG/300 ML 600 MG/300 ML SOLN 300 MG IVPB ×2 (11:16→20:49)
--- NOTE | 2021-09-19 13:07 | PCRCNOTE ---
Window of time for administration has passed. See next scheduled administration.
--- NOTE | 2021-09-19 16:22 | PM.IMPN ---
Progress Note: A&P Assessment and Plan (1) Hypotension: Code(s): I95.9 - Hypotension, unspecified Status: Acute Assessment and Plan: BP soft Continue Midodrine added BP better controlled Hold Lopressor for SBP <100 Continue to monitor closely Up titrate midodrine to 10 mg t.i.d. blood pressure is borderline (2) Atrial tachycardia: Code(s): I47.1 - Supraventricular tachycardia Status: Acute Assessment and Plan: Symptoms better but with intermittent tachycardia TSH normal [place] related to the change in her clinical status from the ileitis Dopplers negative for DVT 09/12 Continue metoprolol Okay to stop tele (3) Ileitis: Code(s): K52.9 - Noninfective gastroenteritis and colitis, unspecified Status: Acute Assessment and Plan: Patient developed nausea and vomiting 09/[address] showing chronic distal pSBO vs ileus WBC up to 14 but normalized. LA climbed to 3.7 but normal now Procalcitonin normal SBFT showing multiple segments of intervening small bowel narrowing and dilation with mucosal irregularity No significant obstruction of flow of contrast to the colon Transit time was less than 2 hours. There is haustral irregularity in the proximal colon. Most likely considerations include IBD (i.e. Crohn's disease) and infection. Continue Flagyl and Cipro Anti-sacharomyces Ab and calprotectin pending Enterocort started Diet as detailed by GI SBFT-->Nonspecific mild small bowel dilatation and ileal mucosal fold thickening Lactulose held due to frequent BMs Appreciate GI input IBD panel is positive suggestive of inflammatory bowel disease await recommendation from GI Still has ideas abdomen is still distended the no nausea vomiting X-ray reviewed from 09/18/[address] abdomen and pelvis for further evaluation (4) Ileus: Code(s): K56.7 - Ileus, unspecified Status: Acute Assessment and Plan: As above Recheck x-ray abdomen with highly 09/18/[address] abdomen today Having bowel movement regularly (5) Thrombosis: Code(s): I82.90 - Acute embolism and thrombosis of unspecified vein Status: Acute Assessment and Plan: Also noted by CT of the Abd 09/07 was partial thrombosis without occlusion of the SMV and portal vein Anticoagulation held due to thrombocytopenia, anemia and varices (6) Bacteremia: Code(s): R78.81 - Bacteremia Status: Acute Assessment and Plan: On 07/22/21, patient was hospitalized and found to have Coag Negative Staph in blood and urine cultures. She was treated with Vancomycin through 08/04/21. -BCx collected 09/03 have returned Coag Negative Staph in both bottles. -UA clear. No skin lesions to suggest source. -Repeat BCx 09/05 NGTD. -Echo did not show vegetations. -CT scan showing possible spinal osteomyelitis but MRI showing no evidence of diskitis or osteomyelitis. There is peripheral displacement of the cauda equina at L5 consistent with arachnoiditis Continue PT and OT -Continue linezolid. Appreciate ID input. Plan for Linezolid through 10/02/21 (7) Pancytopenia: Code(s): D61.818 - Other pancytopenia Status: Acute Assessment and Plan: Leukopenia to 2.6-->3.4-->2.8-->4.8-->3.3-->5.8 Possibly related to abx since both Primaxin and Linezolid can cause myelosuppression She was changed from Primaxin to Cipro Anemia noted. Hgb was normal in the 13 range but dropped to 9-10 range Irons studies noted and probably related to her cirrhosis. Follow. TCP is chronic (since at least 2019) related to underlying liver disease Plt 29-->37-->36-->48-->26-->37, possibly due to the abx No evidence of bleeding Transfuse as needed Monitor (8) Nausea & vomiting: Code(s): R11.2 - Nausea with vomiting, unspecified Status: Acute Assessment and Plan: As above (9) Altered mental status: Qualifiers: Altered mental status type: stupor Joce
--- NOTE | 2021-09-19 20:35 | PC.NURSE ---
Pt complains of heart burn, pt is spitting up stomach acid into a cup. Pt appears to be more short of breath with the slightest activity, ABD remains distended. Finding reported to Chelsie POSTAL SUPERVISOR and New orders received for Tums PRN.
[2021-09-19] MEDS: CALCIUM CARBONATE (TUMS) 500 MG (200 MG ELEMENTAL) PO (21:43)
[2021-09-20] VITALS (8 sets, daily range): BP systolic 109–119; BP diastolic 68–75; PULSE 78–122; RESP 18–24; TEMP 36.6–36.9; O2SAT 91–95
[2021-09-20] MEDS: CALCIUM CARBONATE (TUMS) 500 MG (200 MG ELEMENTAL) PO (06:26)
[2021-09-20] MEDS: METOPROLOL TARTRATE 12.5 MG TABLET PO ×3 (06:30→21:11)
[2021-09-20] MEDS: metroNIDAZOLE 250 MG TABLET 500 MG PO (06:30)
[2021-09-20 07:03] LABS: Basophils Percent Auto 0.2 % (0.2-1.2); Eosinophils Percent Auto 0.4 % (0-4.4); Hematocrit 25.8 % (37.0-47.0); Hemoglobin 8.2 g/dL (12.0-15.0); Immature Granulocyte Absolute 0.04 K/mm3 (0.00-0.031); Immature Granulocyte Percent A 0.8 % (0-0.5); Immature Platelet Fraction Pct 5.3 % (0.9-11.2); Lymphocytes Absolute Auto 0.42 K/mm3 (0.9-3.2); Lymphocytes Percent Auto 8.9 % (18.3-44.2); Mean Corpuscular HGB Conc 31.8 g/dl (32-36); Mean Corpuscular Hemoglobin 30.9 pg (26-34); Mean Corpuscular Volume 97.4 fl (80-100); Mean Platelet Volume 11.4 fl (7.4-10.4); Monocytes Absolute Auto 0.4 K/mm3 (0.1-0.6); Monocytes Percent Auto 8.4 % (2.6-8.5); Neutrophils Absolute Auto 3.9 K/mm3 (1.3-6.7); Neutrophils Percent Auto 81.3 % (45.5-73.1); Platelet Count Result 54 k/mm3 (150-375); Red Blood Count 2.65 M/mm3 (4.2-5.4); Red Cell Distribution Width 15.1 % (11.5-14.5); White Blood Count 4.7 K/mm3 (4.5-10.0)
[2021-09-20 07:12] LABS: Alanine Aminotransferase 17 U/L (4-35); Albumin Level 2.8 g/dL (3.5-5.1); Alkaline Phosphatase 70 U/L (38-126); Anion Gap 8 mmol/L (8-16); Aspartate Amino Transferase 21 U/L (14-36); Bilirubin,Total 1.2 mg/dL (0.2-1.3); Blood Urea Nitrogen 17 mg/dL (7-17); Calcium 8.5 mg/dL (8.4-10.2); Carbon Dioxide 25 mmol/L (22-30); Chloride 103 mmol/L (98-107); Estimated CRCL calculation 139 ml/min; Estimated Glomerular Filt Rate > 60; Glucose 180 mg/dL (65-110); Magnesium 1.9 mg/dL (1.6-2.3); Sodium 136 mmol/L (137-145)
[2021-09-20] MEDS: POTASSIUM CHLORIDE 20 MEQ TABLET.ER 40 MEQ PO ×2 (08:09→17:17)
[2021-09-20] MEDS: ALBUMIN HUMAN 25% 25 GM/100 ML 200 ML IVPB ×2 (09:10→17:18)
[2021-09-20] MEDS: MESALAMINE 250 MG CAP CR 1000 MG PO ×4 (09:33→21:12)
[2021-09-20] MEDS: PANTOPRAZOLE 40 MG TABLET PO (09:34)
[2021-09-20] MEDS: BUDESONIDE 3 MG CAP.SR.24H 9 MG PO (09:34)
[2021-09-20] MEDS: LINEZOLID 600 MG/300 ML 600 MG/300 ML SOLN 300 MG IVPB ×2 (09:34→21:54)
[2021-09-20] MEDS: MIDODRINE HCL 10 MG TABLET PO ×3 (09:34→17:17)
[2021-09-20] MEDS: OLANZapine 2.5 MG TABLET PO (09:35)
[2021-09-20] MEDS: THERAPEUTIC MULTIVITAMINS/MINERALS TAB (*BKC) 1 TABLET PO (09:35)
--- NOTE | 2021-09-20 12:38 | PM.IMPN ---
Progress Note: A&P Assessment and Plan (1) Hypotension: Code(s): I95.9 - Hypotension, unspecified Status: Acute Assessment and Plan: BP soft Continue Midodrine added BP better controlled Hold Lopressor for SBP <100 Continue to monitor closely Up titrate midodrine to 10 mg t.i.d. blood pressure is borderline (2) Atrial tachycardia: Code(s): I47.1 - Supraventricular tachycardia Status: Acute Assessment and Plan: Symptoms better but with intermittent tachycardia TSH normal [place] related to the change in her clinical status from the ileitis Dopplers negative for DVT 09/12 Continue metoprolol Okay to stop tele (3) Ileitis: Code(s): K52.9 - Noninfective gastroenteritis and colitis, unspecified Status: Acute Assessment and Plan: Patient developed nausea and vomiting 09/[address] showing chronic distal pSBO vs ileus WBC up to 14 but normalized. LA climbed to 3.7 but normal now Procalcitonin normal SBFT showing multiple segments of intervening small bowel narrowing and dilation with mucosal irregularity No significant obstruction of flow of contrast to the colon Transit time was less than 2 hours. There is haustral irregularity in the proximal colon. Most likely considerations include IBD (i.e. Crohn's disease) and infection. Continue Flagyl and Cipro Anti-sacharomyces Ab and calprotectin pending Enterocort started Diet as detailed by GI SBFT-->Nonspecific mild small bowel dilatation and ileal mucosal fold thickening Lactulose held due to frequent BMs Appreciate GI input IBD panel is positive suggestive of inflammatory bowel disease await recommendation from GI Still has ideas abdomen is still distended the no nausea vomiting X-ray reviewed from 09/18/2021 CT abdomen and pelvis showed stable findings of ileus much improved comparatively on my review however has are large volume ascites. Will get therapeutic paracentesis however might be limited due to borderline blood pressure which is being maintained with midodrine Will also get started on albumin infusion for her ascites (4) Ileus: Code(s): K56.7 - Ileus, unspecified Status: Acute Assessment and Plan: As above Recheck x-ray abdomen with highly 09/18/[address] abdomen today Having bowel movement regularly (5) Thrombosis: Code(s): I82.90 - Acute embolism and thrombosis of unspecified vein Status: Acute Assessment and Plan: Also noted by CT of the Abd 09/07 was partial thrombosis without occlusion of the SMV and portal vein Anticoagulation held due to thrombocytopenia, anemia and varices (6) Bacteremia: Code(s): R78.81 - Bacteremia Status: Acute Assessment and Plan: On 07/22/21, patient was hospitalized and found to have Coag Negative Staph in blood and urine cultures. She was treated with Vancomycin through 08/04/21. -BCx collected 09/03 have returned Coag Negative Staph in both bottles. -UA clear. No skin lesions to suggest source. -Repeat BCx 09/05 NGTD. -Echo did not show vegetations. -CT scan showing possible spinal osteomyelitis but MRI showing no evidence of diskitis or osteomyelitis. There is peripheral displacement of the cauda equina at L5 consistent with arachnoiditis Continue PT and OT -Continue linezolid. Appreciate ID input. Plan for Linezolid through 10/02/21 (7) Pancytopenia: Code(s): D61.818 - Other pancytopenia Status: Acute Assessment and Plan: Leukopenia to 2.6-->3.4-->2.8-->4.8-->3.3-->5.8 Possibly related to abx since both Primaxin and Linezolid can cause myelosuppression She was changed from Primaxin to Cipro Anemia noted. Hgb was normal in the 13 range but dropped to 9-10 range Irons studies noted and probably related to her cirrhosis. Follow. TCP is chronic (since at least 2019) related to underlying liver disease Plt 29-->37-->36-->48-->26-->37, possibly due to the abx No evidence of bleeding
--- NOTE | 2021-09-20 12:45 | WPDGIPROGNO ---
Progress Note: A&P Assessment and Plan (1) Ileitis: Code(s): K52.9 - Noninfective gastroenteritis and colitis, unspecified Status: Acute Assessment and Plan: Ileitis appears to be from Crohn's disease with positive IBD markers. Patient now on Pentasa and Anticort we will continue this for now of consider follow-up colonoscopy as an outpatient under the direction of Dr. Andres. (2) Cirrhosis: Code(s): K74.60 - Unspecified cirrhosis of liver Status: Acute Assessment and Plan: Patient has cirrhosis on the basis of hepatitis C. new CT scan reveals ascites that is new development. Appears to be on the basis of underlying cirrhosis. (3) Hepatitis C: Code(s): B19.20 - Unspecified viral hepatitis C without hepatic coma Status: Acute (4) Ascites: Code(s): R18.8 - Other ascites Status: Acute Assessment and Plan: Ascites accounts for abdominal distention. Plan is for all low-salt diet. Paracentesis may be performed diagnostically to exclude SBP. Low-dose diuretics may be beneficial such as Aldactone. (5) Pancytopenia: Code(s): D61.818 - Other pancytopenia Status: Acute Assessment and Plan: Pancytopenia peers to be on the basis of her known cirrhosis. Subjective Date/time seen: 09/20/21 12:45 Patient passing stool . abdomen remains distended at this time. Poor historian Review of Systems Review of Systems: ROS unobtainable: Yes unobtainable due to mental status Exam Narrative: physical exam reveals patient be alert unable to give good history. Tolerating diet. Abdomen modestly distended with some tympany. Objective Data Vital Signs Vital Signs: Vital Signs - 24 hr 09/19/21 14:38 09/19/21 16:00 09/19/21 20:00 Temperature 98.7 F 99.6 F Pulse Rate 112 H 89 87 Respiratory Rate 24 H 18 Blood Pressure 120/74 121/74 Pulse Oximetry 93 94 09/19/21 20:41 09/19/21 20:49 09/19/21 23:43 Temperature 98.2 F Pulse Rate 86 98 120 H Respiratory Rate 19 20 Blood Pressure 115/67 Pulse Oximetry 92 09/20/21 04:00 09/20/21 06:30 09/20/21 08:30 Temperature 98.0 F Pulse Rate 96 106 H Respiratory Rate 18 Blood Pressure 116/75 Pulse Oximetry 91 94 Intake/Output Intake/Output: Intake & Output 09/17/21 09/18/21 09/19/21 09/20/21 23:59 23:59 23:59 23:59 Intake Total 2360 2510 3310 350 Balance 2360 2510 3310 350 Meds/Results Medications: Active Medications Generic Name Dose Route Start Last Admin Trade Name Freq PRN Reason Stop Dose Admin Al Hydrox/Mg Hydrox/Simethicone 30 ml 09/06/21 22:29 09/06/21 23:12 Mag Hydrox/Al Hydrox/Simeth 30 Ml Udc PO 30 ml Q6H PRN Administration Indigestion Albuterol 2 puff 09/03/21 23:51 09/13/21 21:49 Albuterol Sulfate (*Sp) Aerosol 1 Puff INHALATION 2 puff Q4H PRN Administration Shortness Of Breath Or Wheezing Budesonide 9 mg 09/13/21 09:00 09/20/21 09:34 Budesonide 3 Mg Cap.Sr.24h PO 9 mg QAM ELICIA Administration Calcium Carbonate 200 mg 09/19/21 21:15 09/20/21 06:26 Calcium Carbonate (Tums) 500 Mg (200 Mg Elemental) PO 200 mg Q6H PRN Administration Indigestion Fluticasone Propionate 2 puff 09/04/21 08:00 09/20/21 08:30 Fluticasone Prop 110 Mcg Inhaler 1 Puff INHALATION 2 puff Q12HRT ELICIA Administration Linezolid 600 mg in 300 mls @ 300 mls/hr 09/18/21 21:00 09/20/21 09:34 Zyvox IVPB 10/02/21 23:59 300 mls/hr Q12HR ELICIA Administration Albumin Human 200 mls @ 60 mls/hr 09/20/21 09:00 Albutein IVPB Q8H ELICIA Lactulose 20 gm 09/07/21 17:00 Lactulose 20 Gm/30 Ml Udc PO BID ELICIA Mesalamine 1,000 mg 09/17/21 13:00 09/20/21 09:33 Mesalamine 250 Mg Cap Cr PO 1,000 mg QID ELICIA Administration Metoprolol Tartrate 12.5 mg 09/13/21 22:00 09/20/21 06:30 Metoprolol Tartrate 12.5 Mg Tablet PO 12.5 mg Q8H ELICIA Administration Midodrine 10 mg 09/17/21 17:
[2021-09-21] VITALS (8 sets, daily range): BP systolic 102–116; BP diastolic 52–75; PULSE 82–120; RESP 18–20; TEMP 36.8–37; O2SAT 94–97
[2021-09-21] MEDS: ALBUMIN HUMAN 25% 25 GM/100 ML 200 ML IVPB ×3 (01:27→16:41)
[2021-09-21 05:14] LABS: Eosinophils Percent Auto 0.7 % (0-4.4); Hematocrit 24.3 % (37.0-47.0); Hemoglobin 7.8 g/dL (12.0-15.0); Immature Granulocyte Absolute 0.03 K/mm3 (0.00-0.031); Immature Platelet Fraction Pct 5.1 % (0.9-11.2); Lymphocytes Absolute Auto 0.17 K/mm3 (0.9-3.2); Lymphocytes Percent Auto 5.6 % (18.3-44.2); Mean Corpuscular HGB Conc 32.1 g/dl (32-36); Mean Corpuscular Hemoglobin 31.2 pg (26-34); Mean Corpuscular Volume 97.2 fl (80-100); Mean Platelet Volume 11.3 fl (7.4-10.4); Monocytes Absolute Auto 0.3 K/mm3 (0.1-0.6); Monocytes Percent Auto 8.6 % (2.6-8.5); Neutrophils Absolute Auto 2.6 K/mm3 (1.3-6.7); Neutrophils Percent Auto 84.1 % (45.5-73.1); Platelet Count Result 45 k/mm3 (150-375); Red Cell Distribution Width 14.6 % (11.5-14.5)
[2021-09-21 05:25] LABS: Potassium 3.7 mmol/L (3.4-5.0)
[2021-09-21 05:32] LABS: Alanine Aminotransferase 15 U/L (4-35); Alkaline Phosphatase 60 U/L (38-126); Anion Gap 9 mmol/L (8-16); Aspartate Amino Transferase 19 U/L (14-36); Bilirubin,Total 1.5 mg/dL (0.2-1.3); Blood Urea Nitrogen 16 mg/dL (7-17); Calcium 9.2 mg/dL (8.4-10.2); Carbon Dioxide 25 mmol/L (22-30); Chloride 103 mmol/L (98-107); Estimated CRCL calculation 139 ml/min; Estimated Glomerular Filt Rate > 60; Glucose 161 mg/dL (65-110); Sodium 137 mmol/L (137-145)
[2021-09-21] MEDS: ACETAMINOPHEN 500 MG TABLET PO (06:09)
[2021-09-21] MEDS: METOPROLOL TARTRATE 12.5 MG TABLET PO ×3 (07:10→21:24)
[2021-09-21] MEDS: LINEZOLID 600 MG/300 ML 600 MG/300 ML SOLN 300 MG IVPB ×2 (08:32→20:14)
[2021-09-21] MEDS: ONDANSETRON INJ 4 MG/2 ML VIAL IV PUSH (08:36)
[2021-09-21] MEDS: MESALAMINE 250 MG CAP CR 1000 MG PO ×4 (09:30→20:15)
[2021-09-21] MEDS: POTASSIUM CHLORIDE 20 MEQ TABLET.ER 40 MEQ PO ×2 (09:30→16:42)
[2021-09-21] MEDS: BUDESONIDE 3 MG CAP.SR.24H 9 MG PO (09:31)
[2021-09-21] MEDS: MIDODRINE HCL 10 MG TABLET PO ×3 (09:31→16:42)
[2021-09-21] MEDS: THERAPEUTIC MULTIVITAMINS/MINERALS TAB (*BKC) 1 TABLET PO (09:31)
[2021-09-21] MEDS: PANTOPRAZOLE 40 MG TABLET PO (09:32)
[2021-09-21] MEDS: OLANZapine 2.5 MG TABLET PO (09:32)
--- NOTE | 2021-09-21 09:39 | WPDGIPROGNO ---
Progress Note: A&P Assessment and Plan (1) Cirrhosis: Code(s): K74.60 - Unspecified cirrhosis of liver Status: Acute Assessment and Plan: Patient appears to have cirrhosis on the basis of underlying hepatitis C. Continue supportive care. Dr. Andres will see when he returns to [facility] on Friday if still hospitalized. She will need outpatient follow-up ultimately. (2) Hepatitis C: Code(s): B19.20 - Unspecified viral hepatitis C without hepatic coma Status: Acute Assessment and Plan: Hepatitis C appears active. Ultimately will require treatment but she currently has decompensated cirrhosis in this will need to be deferred. (3) Ascites: Code(s): R18.8 - Other ascites Status: Acute Assessment and Plan: Aside these has developed during hospital stay. Plan is for low-salt diet. Will start low-dose diuretics. Hopefully blood pressure will allow this. Paracentesis performed final results pending. To exclude SBP. (4) Pancytopenia: Code(s): D61.818 - Other pancytopenia Status: Acute Assessment and Plan: Pancytopenia peers to be a on the basis of underlying cirrhosis. Continue supportive care. (5) Ileitis: Code(s): K52.9 - Noninfective gastroenteritis and colitis, unspecified Status: Acute Assessment and Plan: Ileitis identified at the time of admission suspicious for inflammatory bowel disease specifically Crohn's disease. IBD serology suggest this is Crohn's disease at some point in the future a colonoscopy with evaluation of the ileum may be of some benefit this should be deferred until her cirrhosis, ascites and encephalopathy of stabilized. Dr. Andres will follow-up with this when he returns. (6) Hepatic encephalopathy: Code(s): K72.90 - Hepatic failure, unspecified without coma Status: Acute Assessment and Plan: Patient with patent encephalopathy limit some of her history. Continue Xifaxan and lactulose. Titrate dose of lactulose of that she has loose stools. Subjective Date/time seen: 09/21/21 09:39 Patient alert this morning modestly confused. Despite remaining on lactulose and Xifaxan. Notes abdominal distention. But eating and having bowel movements. Review of Systems Review of Systems: ROS unobtainable: Yes unobtainable due to mental status Exam Narrative: Physical exam reveals patient be alert. Still remains difficult historian. Lungs are clear. Heart without murmur. Abdomen is distended bowel sounds are present. Shifting dullness evident. Objective Data Vital Signs Vital Signs: Vital Signs - 24 hr 09/20/21 14:00 09/20/21 17:16 09/20/21 20:17 Temperature 97.8 F Pulse Rate 110 H 78 89 Respiratory Rate 24 H 18 Blood Pressure 109/68 Pulse Oximetry 95 09/20/21 21:11 09/20/21 22:21 09/21/21 05:33 Temperature 98.5 F 98.5 F Pulse Rate 79 122 H 120 H Respiratory Rate 18 18 Blood Pressure 119/69 109/75 Pulse Oximetry 95 96 09/21/21 07:10 09/21/21 08:00 Temperature 98.3 F Pulse Rate 108 H 106 H Respiratory Rate 18 Blood Pressure 110/70 Pulse Oximetry 97 Intake/Output Intake/Output: Intake & Output 09/18/21 09/19/21 09/20/21 09/21/21 23:59 23:59 23:59 23:59 Intake Total 2510 3310 1670 450 Output Total 3600 Balance 2510 3310 -1930 450 Meds/Results Medications: Active Medications Generic Name Dose Route Start Last Admin Trade Name Freq PRN Reason Stop Dose Admin Al Hydrox/Mg Hydrox/Simethicone 30 ml 09/06/21 22:29 09/06/21 23:12 Mag Hydrox/Al Hydrox/Simeth 30 Ml Udc PO 30 ml Q6H PRN Administration Indigestion Albuterol 2 puff 09/03/21 23:51 09/13/21 21:49 Albuterol Sulfate (*Sp) Aerosol 1 Puff INHALATION 2 puff Q4H PRN Administration Shortness Of Breath Or Wheezing Budesonide 9 mg 09/13/21 09:00 09/21/21 09:31 Budesonide 3 Mg Cap.Sr.24h PO 9 mg QAM ELICIA Administration Calcium Carbonate 200
--- NOTE | 2021-09-21 12:14 | PM.IMPN ---
Progress Note: A&P Assessment and Plan (1) Hypotension: Code(s): I95.9 - Hypotension, unspecified Status: Acute Assessment and Plan: BP soft so Midodrine added Up titrated midodrine to 10 mg t.i.d. BP better controlled Hold Lopressor for SBP <100 Continue to monitor closely (2) Atrial tachycardia: Code(s): I47.1 - Supraventricular tachycardia Status: Acute Assessment and Plan: Symptoms better but with intermittent tachycardia TSH normal [place] related to the change in her clinical status from the ileitis Dopplers negative for DVT 09/12 Continue metoprolol (3) Ileitis: Code(s): K52.9 - Noninfective gastroenteritis and colitis, unspecified Status: Acute Assessment and Plan: Patient developed nausea and vomiting 09/[address] showing chronic distal pSBO vs ileus WBC up to 14 but normalized. LA climbed to 3.7 but normal now. Procalcitonin normal SBFT showing multiple segments of intervening small bowel narrowing and dilation with mucosal irregularity No significant obstruction of flow of contrast to the colon; Transit time was less than 2 hours. There is haustral irregularity in the proximal colon. Most likely considerations include IBD (i.e. Crohn's disease) and infection. Treated with Flagyl and Cipro Anti-sacharomyces Ab positive; calprotectin pending. Enterocort and Pantasa started SBFT-->Nonspecific mild small bowel dilatation and ileal mucosal fold thickening Lactulose held due to frequent BMs Appreciate GI input IBD panel is positive suggestive of inflammatory bowel disease await recommendation from GI Still has ideas abdomen is still distended the no nausea vomiting X-ray reviewed from 09/18/2021 CT abdomen and pelvis showed stable findings of ileus much improved comparatively on my review however has are large volume ascites. She had therapeutic paracentesis 09/20 with 3.6L fluid removed but no testing ordered. She is receiving Albumin. Having n/v and persistent diarrhea. Etiology unclear. Repeat CT A/P. May need repeat paracentesis with cultures. (4) Ileus: Code(s): K56.7 - Ileus, unspecified Status: Acute Assessment and Plan: As above (5) Thrombosis: Code(s): I82.90 - Acute embolism and thrombosis of unspecified vein Status: Acute Assessment and Plan: Also noted by CT of the Abd 09/07 was partial thrombosis without occlusion of the SMV and portal vein Anticoagulation held due to thrombocytopenia, anemia and varices (6) Bacteremia: Code(s): R78.81 - Bacteremia Status: Acute Assessment and Plan: On 07/22/21, patient was hospitalized and found to have Coag Negative Staph in blood and urine cultures. She was treated with Vancomycin through 08/04/21. -BCx collected 09/03 have returned Coag Negative Staph in both bottles. -UA clear. No skin lesions to suggest source. -Repeat BCx 09/05 NGTD. -Echo did not show vegetations. -CT scan showing possible spinal osteomyelitis but MRI showing no evidence of diskitis or osteomyelitis. There is peripheral displacement of the cauda equina at L5 consistent with arachnoiditis Continue PT and OT -Continue linezolid. Appreciate ID input. Plan for Linezolid through 10/02/21 (7) Pancytopenia: Code(s): D61.818 - Other pancytopenia Status: Acute Assessment and Plan: Leukopenia possibly related to abx since both Primaxin and Linezolid can cause myelosuppression She was changed from Primaxin to Cipro Anemia noted. Hgb was normal in the 13 range but dropped to 9-10 range Irons studies noted and probably related to her cirrhosis. Hgb dropped to 7.8 today. Will perform serial HH. COntinue Protonix. TCP is chronic (since at least 2018) related to underlying liver disease Plt 45K today No evidence of bleeding Transfuse as needed Monitor (8) Nausea & vomiting: Code(s): R11.2 - Nausea with vomiting, unspecified Stat
[2021-09-21] MEDS: SPIRONOLACTONE 25 MG TABLET PO ×2 (13:08→16:42)
[2021-09-21 13:37] LABS: Hematocrit 23.3 % (37.0-47.0); Hemoglobin 7.3 g/dL (12.0-15.0)
[2021-09-21 13:54] LABS: Lipase 78 U/L (23-300)
[2021-09-21 21:51] LABS: Hematocrit 22.1 % (37.0-47.0)
[2021-09-21 22:02] LABS: Hemoglobin 6.8 g/dL (12.0-15.0)
[2021-09-22] VITALS (25 sets, daily range): BP systolic 98–176; BP diastolic 49–83; PULSE 73–133; RESP 18–28; TEMP 36.3–37.3; O2SAT 85–98
[2021-09-22] MEDS: ALBUMIN HUMAN 25% 25 GM/100 ML 200 ML IVPB ×3 (01:15→18:01)
[2021-09-22] MEDS: TUBING, BLOOD PLUM PUMP TUBING 1 EACH XX (04:43)
[2021-09-22] MEDS: SODIUM CHLORIDE 0.9% IV 250 ML 30 ML IV CONT ×2 (04:43→15:21)
[2021-09-22] MEDS: METOPROLOL TARTRATE 12.5 MG TABLET PO ×3 (05:58→21:46)
[2021-09-22] MEDS: LINEZOLID 600 MG/300 ML 600 MG/300 ML SOLN 300 MG IVPB (08:17)
[2021-09-22 08:18] LABS: Basophils Percent Auto 0.7 % (0.2-1.2); Eosinophils Percent Auto 1.5 % (0-4.4); Immature Granulocyte Absolute 0.01 K/mm3 (0.00-0.031); Immature Granulocyte Percent A 0.7 % (0-0.5); Immature Platelet Fraction Pct 4.7 % (0.9-11.2); Lymphocytes Absolute Auto 0.14 K/mm3 (0.9-3.2); Lymphocytes Percent Auto 10.4 % (18.3-44.2); Mean Corpuscular HGB Conc 31.8 g/dl (32-36); Mean Corpuscular Hemoglobin 31.4 pg (26-34); Mean Corpuscular Volume 98.5 fl (80-100); Mean Platelet Volume 11.3 fl (7.4-10.4); Monocytes Absolute Auto 0.2 K/mm3 (0.1-0.6); Monocytes Percent Auto 13.3 % (2.6-8.5); Neutrophils Percent Auto 73.4 % (45.5-73.1); Platelet Count Result 30 k/mm3 (150-375); Red Blood Count 2.04 M/mm3 (4.2-5.4); Red Cell Distribution Width 14.6 % (11.5-14.5)
[2021-09-22] MEDS: BUDESONIDE 3 MG CAP.SR.24H 9 MG PO (08:20)
[2021-09-22] MEDS: MIDODRINE HCL 10 MG TABLET PO ×3 (08:20→18:00)
[2021-09-22] MEDS: THERAPEUTIC MULTIVITAMINS/MINERALS TAB (*BKC) 1 TABLET PO (08:20)
[2021-09-22] MEDS: MESALAMINE 250 MG CAP CR 1000 MG PO ×4 (08:20→21:47)
[2021-09-22] MEDS: POTASSIUM CHLORIDE 20 MEQ TABLET.ER 40 MEQ PO ×2 (08:21→18:01)
[2021-09-22] MEDS: SPIRONOLACTONE 25 MG TABLET PO ×2 (08:21→18:04)
[2021-09-22] MEDS: OLANZapine 2.5 MG TABLET PO (08:21)
[2021-09-22] MEDS: PANTOPRAZOLE 40 MG TABLET PO (08:21)
[2021-09-22 08:35] LABS: Hematocrit 20.1 % (37.0-47.0); Hemoglobin 6.4 g/dL (12.0-15.0); White Blood Count 1.4 K/mm3 (4.5-10.0)
[2021-09-22 08:59] LABS: Alanine Aminotransferase 15 U/L (4-35); Albumin Level 3.7 g/dL (3.5-5.1); Alkaline Phosphatase 39 U/L (38-126); Anion Gap 11 mmol/L (8-16); Aspartate Amino Transferase 19 U/L (14-36); Bilirubin,Total 2.3 mg/dL (0.2-1.3); Blood Urea Nitrogen 17 mg/dL (7-17); Calcium 9.1 mg/dL (8.4-10.2); Carbon Dioxide 22 mmol/L (22-30); Chloride 105 mmol/L (98-107); Estimated CRCL calculation 136 ml/min; Estimated Glomerular Filt Rate > 60; Glucose 107 mg/dL (65-110); Magnesium 1.8 mg/dL (1.6-2.3); Phosphorus 2.6 mg/dL (2.5-4.5); Potassium 3.4 mmol/L (3.4-5.0); Sodium 138 mmol/L (137-145)
--- NOTE | 2021-09-22 10:12 | WPDGIPROGNO ---
Progress Note: A&P Assessment and Plan (1) Ileitis: Code(s): K52.9 - Noninfective gastroenteritis and colitis, unspecified Status: Acute Assessment and Plan: Patient with ileitis identified at the time of admission was small-bowel series suggesting possible Crohn's disease. Inflammatory bowel disease serology suggestive of Crohn's disease as well. Elective colonoscopy suggested a later day. Small-bowel obstruction suggested admission has resolved. No evidence recurrence currently tolerating diet. (2) Cirrhosis: Code(s): K74.60 - Unspecified cirrhosis of liver Status: Acute Assessment and Plan: Patient has underlying cirrhosis felt to be on the basis of hepatitis C. Continued supportive care devised. She has had hepatic encephalopathy at the time of admission now with ascites. Close follow-up advised. (3) Hepatitis C: Code(s): B19.20 - Unspecified viral hepatitis C without hepatic coma Status: Acute (4) Pancytopenia: Code(s): D61.818 - Other pancytopenia Status: Acute Assessment and Plan: Pancytopenia from her cirrhosis. Now with some decline in hemoglobin with no evidence for active bleeding. Continue to monitor closely. This is a poor prognostic sign. (5) Ascites: Code(s): R18.8 - Other ascites Status: Acute Assessment and Plan: Ascites has developed during hospital stay. Paracentesis is help with distention but no lab studies were performed. Repeat paracentesis with culture and laboratory analysis suggested this can be performed if she remains hospitalized. (6) Hepatic encephalopathy: Code(s): K72.90 - Hepatic failure, unspecified without coma Status: Acute Assessment and Plan: Patient with confusion felt be patent encephalopathy admission plan to continue lactulose and titrate dose to loose stools. She is thinking better today but has had periods of significant confusion. (7) Anemia: Code(s): D64.9 - Anemia, unspecified Status: Acute Assessment and Plan: Decline in hemoglobin noted today. She does have pancytopenia secondary to her cirrhosis. No active bleeding described. Will obtain stool Hemoccult continue monitor hemoglobin closely. She may require transfusion if hemoglobin continues to decline. Elective EGD may also be required if hemoglobin continues to decline. Subjective Date/time seen: 09/22/21 10:12 Patient alert more comfortable today. Appears less confused. Tolerating diet. Abdomen less distended. But remains somewhat. Review of Systems Review of Systems: All systems reviewed & are unremarkable except as noted in HPI and below Exam Narrative: Physical exam reveals patient be alert. Vital signs stable. She is anicteric. Lungs are clear. Heart without murmur. Abdomen is modestly distended soft nontender with no organomegaly. No bleeding described. Objective Data Vital Signs Vital Signs: Vital Signs - 24 hr 09/21/21 12:00 09/21/21 13:09 09/21/21 16:00 Temperature 98.6 F 98.4 F Pulse Rate 96 110 H 102 H Respiratory Rate 18 20 Blood Pressure 102/52 L 104/62 Pulse Oximetry 94 95 09/21/21 19:16 09/21/21 21:24 09/22/21 00:05 Temperature 98.7 F Pulse Rate 82 108 H 110 H Respiratory Rate 20 Blood Pressure 116/70 105/56 L Pulse Oximetry 90 09/22/21 02:15 09/22/21 04:05 09/22/21 04:24 Temperature 98.7 F Pulse Rate 86 133 H Respiratory Rate 18 22 H Blood Pressure 106/68 Pulse Oximetry 87 L 85 L 09/22/21 04:25 09/22/21 04:39 09/22/21 04:56 Temperature 98.9 F 98.5 F Pulse Rate 129 H 129 H Respiratory Rate 28 H 28 H Blood Pressure 99/49 L 104/59 L Pulse Oximetry 93 93 92 09/22/21 05:56 09/22/21 05:58 09/22/21 06:40 Temperature 98.2 F 98.5 F Pulse Rate 123 H 123 H 123 H Respiratory Rate 22 H 22 H Blood Pressure 117/68 110/52 L Pulse Oximetry 92 86 L 09/22/21 06:48 09/22/21 07:00 09/22/21 07:01
--- NOTE | 2021-09-22 14:13 | P.PNIM_ITS ---
Progress Note: A&P Assessment and Plan (1) Hypotension: Code(s): I95.9 - Hypotension, unspecified Status: Acute Assessment and Plan: BP soft so Midodrine added Up titrated midodrine to 10 mg t.i.d. BP better controlled Hold Lopressor for SBP <100 Continue to monitor closely (2) Atrial tachycardia: Code(s): I47.1 - Supraventricular tachycardia Status: Acute Assessment and Plan: Symptoms better but with intermittent tachycardia TSH normal [place] related to the change in her clinical status from the ileitis Dopplers negative for DVT 09/12 Continue metoprolol (3) Ileitis: Code(s): K52.9 - Noninfective gastroenteritis and colitis, unspecified Status: Acute Assessment and Plan: Patient developed nausea and vomiting 09/[address] showing chronic distal pSBO vs ileus WBC up to 14 but normalized. LA climbed to 3.7 but normal now. Procalcitonin normal SBFT showing multiple segments of intervening small bowel narrowing and dilation with mucosal irregularity No significant obstruction of flow of contrast to the colon; Transit time was less than 2 hours. There is haustral irregularity in the proximal colon. Most likely considerations include IBD (i.e. Crohn's disease) and infection. Treated with Flagyl and Cipro Anti-sacharomyces Ab positive; calprotectin pending. Enterocort and Pantasa started SBFT-->Nonspecific mild small bowel dilatation and ileal mucosal fold thickening Lactulose held due to frequent BMs Appreciate GI input IBD panel is positive suggestive of inflammatory bowel disease await recommendation from GI Still has ideas abdomen is still distended the no nausea vomiting X-ray reviewed from 09/18/2021 CT abdomen and pelvis showed stable findings of ileus much improved comparatively on my review however has are large volume ascites. She had therapeutic paracentesis 09/20 with 3.6L fluid removed but no testing ordered. She is receiving Albumin. Having n/v and persistent diarrhea. Etiology unclear. Repeat CT A/P with moderate amount of ascites. May need repeat paracentesis with cultures. H&H is low will hold off any paracentesis today will transfuse 1 unit and give Lasix after that (4) Ileus: Code(s): K56.7 - Ileus, unspecified Status: Acute Assessment and Plan: As above (5) Thrombosis: Code(s): I82.90 - Acute embolism and thrombosis of unspecified vein Status: Acute Assessment and Plan: Also noted by CT of the Abd 09/07 was partial thrombosis without occlusion of the SMV and portal vein Anticoagulation held due to thrombocytopenia, anemia and varices (6) Bacteremia: Code(s): R78.81 - Bacteremia Status: Acute Assessment and Plan: On 07/22/21, patient was hospitalized and found to have Coag Negative Staph in blood and urine cultures. She was treated with Vancomycin through 08/04/21. -BCx collected 09/03 have returned Coag Negative Staph in both bottles. -UA clear. No skin lesions to suggest source. -Repeat BCx 09/05 NGTD. -Echo did not show vegetations. -CT scan showing possible spinal osteomyelitis but MRI showing no evidence of diskitis or osteomyelitis. There is peripheral displacement of the cauda equina at L5 consistent with arachnoiditis Continue PT and OT -Continue linezolid. Appreciate ID input. Plan for Linezolid through 10/02/21 With pancytopenia now will stop linezolid and switched to vancomycin (7) Pancytopenia: Code(s): D61.818 - Other pancytopenia Status: Acute [place]
[2021-09-22] MEDS: FUROSEMIDE INJ 40 MG/4 ML VIAL 20 MG IV PUSH (18:05)
[2021-09-22] MEDS: PANTOPRAZOLE SODIUM IV 40 MG VIAL IV PUSH (20:35)
[2021-09-22 21:16] LABS: Hematocrit 22.6 % (37.0-47.0); Hemoglobin 7.3 g/dL (12.0-15.0); Immature Platelet Fraction Pct 6.1 % (0.9-11.2); Mean Corpuscular HGB Conc 32.3 g/dl (32-36); Mean Corpuscular Hemoglobin 31.6 pg (26-34); Mean Corpuscular Volume 97.8 fl (80-100); Platelet Count Result 37 k/mm3 (150-375); Red Blood Count 2.31 M/mm3 (4.2-5.4); Red Cell Distribution Width 15.8 % (11.5-14.5); White Blood Count 2.3 K/mm3 (4.5-10.0)
[2021-09-23] VITALS (15 sets, daily range): BP systolic 108–136; BP diastolic 58–86; PULSE 78–153; RESP 16–33; TEMP 36.4–37.4; O2SAT 91–100
[2021-09-23] MEDS: ALBUMIN HUMAN 25% 25 GM/100 ML 200 ML IVPB ×3 (02:31→16:27)
[2021-09-23] MEDS: METOPROLOL TARTRATE 12.5 MG TABLET PO ×2 (05:57→13:23)
[2021-09-23 05:58] LABS: Eosinophils Percent Auto 0.4 % (0-4.4); Hematocrit 22.4 % (37.0-47.0); Hemoglobin 7.2 g/dL (12.0-15.0); Immature Granulocyte Absolute 0.03 K/mm3 (0.00-0.031); Immature Granulocyte Percent A 1.1 % (0-0.5); Immature Platelet Fraction Pct 6.3 % (0.9-11.2); Lymphocytes Absolute Auto 0.13 K/mm3 (0.9-3.2); Lymphocytes Percent Auto 4.8 % (18.3-44.2); Mean Corpuscular HGB Conc 32.1 g/dl (32-36); Mean Corpuscular Hemoglobin 31.4 pg (26-34); Mean Corpuscular Volume 97.8 fl (80-100); Mean Platelet Volume 11.2 fl (7.4-10.4); Monocytes Absolute Auto 0.3 K/mm3 (0.1-0.6); Monocytes Percent Auto 9.7 % (2.6-8.5); Neutrophils Absolute Auto 2.3 K/mm3 (1.3-6.7); Platelet Count Result 35 k/mm3 (150-375); Red Blood Count 2.29 M/mm3 (4.2-5.4); Red Cell Distribution Width 15.9 % (11.5-14.5); White Blood Count 2.7 K/mm3 (4.5-10.0)
[2021-09-23 06:06] LABS: Alanine Aminotransferase 14 U/L (4-35); Albumin Level 4.5 g/dL (3.5-5.1); Alkaline Phosphatase 39 U/L (38-126); Anion Gap 13 mmol/L (8-16); Aspartate Amino Transferase 17 U/L (14-36); Bilirubin,Total 2.1 mg/dL (0.2-1.3); Blood Urea Nitrogen 15 mg/dL (7-17); Calcium 9.3 mg/dL (8.4-10.2); Carbon Dioxide 23 mmol/L (22-30); Chloride 105 mmol/L (98-107); Estimated CRCL calculation 136 ml/min; Estimated Glomerular Filt Rate > 60; Glucose 134 mg/dL (65-110); Magnesium 1.7 mg/dL (1.6-2.3); Potassium 3.7 mmol/L (3.4-5.0); Sodium 141 mmol/L (137-145)
[2021-09-23] MEDS: MESALAMINE 250 MG CAP CR 1000 MG PO ×4 (09:10→20:30)
[2021-09-23] MEDS: BUDESONIDE 3 MG CAP.SR.24H 9 MG PO (09:10)
[2021-09-23] MEDS: PANTOPRAZOLE SODIUM IV 40 MG VIAL IV PUSH ×2 (09:10→20:30)
[2021-09-23] MEDS: SPIRONOLACTONE 25 MG TABLET PO ×2 (09:11→16:19)
[2021-09-23] MEDS: POTASSIUM CHLORIDE 20 MEQ TABLET.ER 40 MEQ PO ×2 (09:11→16:18)
[2021-09-23] MEDS: OLANZapine 2.5 MG TABLET PO (09:11)
[2021-09-23] MEDS: THERAPEUTIC MULTIVITAMINS/MINERALS TAB (*BKC) 1 TABLET PO (09:11)
[2021-09-23] MEDS: MIDODRINE HCL 10 MG TABLET PO ×3 (09:11→16:18)
--- NOTE | 2021-09-23 09:28 | WPDGIPROGNO ---
Progress Note: A&P Assessment and Plan (1) Cirrhosis: Code(s): K74.60 - Unspecified cirrhosis of liver Status: Acute Assessment and Plan: Patient with underlying cirrhosis of liver presumed to be from hepatitis C. Plan to continue supportive care. Current problems include pancytopenia and ascites. A padded can cephalopathy admission has resolved. Dr. Shalom alvarez will resume GI coverage when he returns tomorrow. (2) Hepatitis C: Code(s): B19.20 - Unspecified viral hepatitis C without hepatic coma Status: Acute Assessment and Plan: Hepatitis C may deserve treatment at a later date when his cirrhosis is more adequately under control. (3) Pancytopenia: Code(s): D61.818 - Other pancytopenia Status: Acute Assessment and Plan: Pancytopenia on the basis of cirrhosis period low platelet count is limited some of the investigation. Continue to monitor closely. (4) Ascites: Code(s): R18.8 - Other ascites Status: Acute Assessment and Plan: Patient with ascites on the basis of her cirrhosis. Low-salt diet indicated. Diuretics are encourage but may be limited by her low blood pressure. Currently on low-dose Aldactone. Monitor daily weights and electrolytes as well as BP. (5) Hepatic encephalopathy: Code(s): K72.90 - Hepatic failure, unspecified without coma Status: Acute Assessment and Plan: Hepatic encephalopathy identified at admission appears were improved. Continue lactulose and titrate to loose stools. (6) Ileitis: Code(s): K52.9 - Noninfective gastroenteritis and colitis, unspecified Status: Acute Assessment and Plan: Partial small-bowel obstruction on and admission has improved. Small-bowel series with narrowed area suspicious for Crohn's disease. IBD serology also suggested of a Crohn's disease. More definitive diagnosis may be indicated in the future. Continue empiric treatment for now. Subjective Date/time seen: 09/23/21 09:28 Patient alert tolerating diet. Appears more alert. No signs of bleeding. Denies abdominal pain. Exam Narrative: Physical exam reveals patient be alert. Vital signs stable. HEENT exam reveals no icterus. Lungs are clear. Heart without murmur. Abdomen is softer but remains somewhat distended. Shifting dullness is evident. Extremities are without clubbing or edema. Objective Data Vital Signs Vital Signs: Vital Signs - 24 hr 09/22/21 12:00 09/22/21 15:07 09/22/21 15:22 Temperature 98.0 F 99.2 F Pulse Rate 111 H 117 H 110 H Respiratory Rate 20 24 H Blood Pressure 111/72 105/67 Pulse Oximetry 95 98 09/22/21 15:32 09/22/21 16:00 09/22/21 16:32 Temperature 97.4 F L 97.9 F 99.2 F Pulse Rate 117 H 95 113 H Respiratory Rate 18 18 25 H Blood Pressure 122/65 176/83 H 107/74 Pulse Oximetry 95 93 94 09/22/21 20:00 09/22/21 21:45 09/22/21 21:46 Temperature 97.4 F L Pulse Rate 110 H 110 H Respiratory Rate 20 Blood Pressure 128/74 Pulse Oximetry 93 97 09/22/21 23:08 09/23/21 00:00 09/23/21 04:00 Temperature 97.6 F 97.5 F L Pulse Rate 100 105 H 110 H Respiratory Rate 20 16 20 Blood Pressure 108/61 112/62 Pulse Oximetry 97 99 09/23/21 05:57 Temperature Pulse Rate 110 H Respiratory Rate Blood Pressure Pulse Oximetry Intake/Output Intake/Output: Intake & Output 09/20/21 09/21/21 09/22/21 09/23/21 23:59 23:59 23:59 23:59 Intake Total 1670 2212 2900 200 Output Total 3600 Balance -1930 2212 2900 200 Meds/Results Medications: Active Medications Generic Name Dose Route Start Last Admin Trade Name Freq PRN Reason Stop Dose Admin Al Hydrox/Mg Hydrox/Simethicone 30 ml 09/06/21 22:29 09/06/21 23:12 Mag Hydrox/Al Hydrox/Simeth 30 Ml Udc PO 30 ml Q6H PRN Administration Indigestion Albuterol 2 puff 09/03/21 23:51 09/13/21 21:49 Albuterol Sulfate (*Sp) Aerosol 1 Puff INHALATION 2 puff Q4H
[2021-09-23] MEDS: ALBUTEROL SULFATE (*SP) AEROSOL 1 PUFF 2 PUFF INHALATION (11:23)
--- NOTE | 2021-09-23 14:59 | PM.IMPN ---
Progress Note: A&P Assessment and Plan (1) Hypotension: Code(s): I95.9 - Hypotension, unspecified Status: Acute Assessment and Plan: BP soft so Midodrine added Up titrated midodrine to 10 mg t.i.d. BP better controlled Hold Lopressor for SBP <100 Continue to monitor closely (2) Atrial tachycardia: Code(s): I47.1 - Supraventricular tachycardia Status: Acute Assessment and Plan: Symptoms better but with intermittent tachycardia TSH normal [place] related to the change in her clinical status from the ileitis Dopplers negative for DVT 09/12 Continue metoprolol (3) Ileitis: Code(s): K52.9 - Noninfective gastroenteritis and colitis, unspecified Status: Acute Assessment and Plan: Patient developed nausea and vomiting 09/[address] showing chronic distal pSBO vs ileus WBC up to 14 but normalized. LA climbed to 3.7 but normal now. Procalcitonin normal SBFT showing multiple segments of intervening small bowel narrowing and dilation with mucosal irregularity No significant obstruction of flow of contrast to the colon; Transit time was less than 2 hours. There is haustral irregularity in the proximal colon. Most likely considerations include IBD (i.e. Crohn's disease) and infection. Treated with Flagyl and Cipro Anti-sacharomyces Ab positive; calprotectin pending. Enterocort and Pantasa started SBFT-->Nonspecific mild small bowel dilatation and ileal mucosal fold thickening Lactulose held due to frequent BMs Appreciate GI input IBD panel is positive suggestive of inflammatory bowel disease await recommendation from GI Still has ideas abdomen is still distended the no nausea vomiting X-ray reviewed from 09/18/2021 CT abdomen and pelvis showed stable findings of ileus much improved comparatively on my review however has are large volume ascites. She had therapeutic paracentesis 09/20 with 3.6L fluid removed but no testing ordered. She is receiving Albumin. Having n/v and persistent diarrhea. Etiology unclear. Repeat CT A/P with moderate amount of ascites. May need repeat paracentesis with cultures. H&H is low will hold off any paracentesis today will transfuse 1 unit and give Lasix after that (4) Ileus: Code(s): K56.7 - Ileus, unspecified Status: Acute Assessment and Plan: As above (5) Thrombosis: Code(s): I82.90 - Acute embolism and thrombosis of unspecified vein Status: Acute Assessment and Plan: Also noted by CT of the Abd 09/07 was partial thrombosis without occlusion of the SMV and portal vein Anticoagulation held due to thrombocytopenia, anemia and varices (6) Bacteremia: Code(s): R78.81 - Bacteremia Status: Acute Assessment and Plan: On 07/22/21, patient was hospitalized and found to have Coag Negative Staph in blood and urine cultures. She was treated with Vancomycin through 08/04/21. -BCx collected 09/03 have returned Coag Negative Staph in both bottles. -UA clear. No skin lesions to suggest source. -Repeat BCx 09/05 NGTD. -Echo did not show vegetations. -CT scan showing possible spinal osteomyelitis but MRI showing no evidence of diskitis or osteomyelitis. There is peripheral displacement of the cauda equina at L5 consistent with arachnoiditis Continue PT and OT -Continue linezolid. Appreciate ID input. Plan for Linezolid through 10/02/21 With pancytopenia now will stop linezolid and switched to vancomycin Continue vancomycin (7) Pancytopenia: Code(s): D61.818 - Other pancytopenia Status: Acute Assessment and Plan: Leukopenia possibly related to abx since both Primaxin and Linezolid can cause myelosuppression She was changed from Primaxin to Cipro Anemia noted. Hgb was normal in the 13 range but dropped to 9-10 range Irons studies noted and probably related to her cirrhosis. Hgb dropped to 7.8 today. Will perform serial HH. COntinue Protonix. TCP is chronic [facility]
[2021-09-23] MEDS: FUROSEMIDE INJ 40 MG/4 ML VIAL IV PUSH (16:27)
[2021-09-23 20:43] LABS: Calprotectin, Stool 42 mcg/g
--- NOTE | 2021-09-23 21:55 | ECG_ITS ---
Measurements Intervals [place] Rate: 137 P: -31 ME: 152 QRS: 10 QRSD: 82 T: -7 QT: 300 QTc: 453 Interpretive Statements ATRIAL FLUTTER/TACHYCARDIA WITH RAPID VENTRICULAR RESPONSE BORDERLINE ST-T WAVE ABNORMALITY- DIFFUSE LEADS BASELINE ARTIFACT- I, II, III, AVR, AVL, AVF, V1-V3, V5 ABNORMAL ECG Electronically Signed On 09-24-2021 17:09:06 CHAIN SAW DRIVER by Vinicius Miller D.O.
[2021-09-23 22:03] LABS: Alveolar/Arterial O2 Gradient 595.7 mmHg; Fractional Inspired Oxygen 100 %; HCO3 ABG 23.8 mEq/l (22.0-26.0); Oxygen Content ABG 10.7 %vol (16.0-22.0); Oxygen Saturation ABG 90.2 % (95.0-100.0); Oxyhemoglobin 88.4 % THb (90.0-100.0); PCO2 ABG 51.6 mmHg (35.0-45.0); PO2 ABG 65.7 mmHg (80.0-100.0); PO2 FiO2 Ratio Arterial Blood 0.66 %; Total Hemoglobin 8.5 g/dL (12.0-18.0)
[2021-09-23 22:06] LABS: pH ABG 7.281 (7.350-7.450)
[2021-09-23 22:07] LABS: Modified Allen's Test Pass; Site Drawn RIGHT RADIAL
[2021-09-23 22:08] LABS: Device NON-REBREATHER MASK
--- NOTE | 2021-09-23 22:30 | PC.NURSE ---
Patient transferred to ICU 3 post rapid response for intubation. Report to MARII Randall.
[2021-09-23] MEDS: FENTANYL 2,500MCG/NS250ML(*CRX 2,500 MCG/250 ML BAG IV CONT (22:40)
[2021-09-23] MEDS: MIDAZOLAM 100MG/NS 100ML(*CRX) 100 MG/100 ML BAG IV CONT (22:40)
[2021-09-23] MEDS: FUROSEMIDE INJ 40 MG/4 ML VIAL (22:50)
--- NOTE | 2021-09-23 22:52 | P.RRN_ITS ---
Critical Care Event Note Summary Code activated: No Narrative: Rapid response was called at 9:49 p.m.. I arrived at the patient's bedside combined the patient on a non-rebreather. She was mottled in her extremities with cyanosis. He had labored respirations in the 30s. She had some frothy secretions at her mouth. Her oxygen saturations had improved back up to 95%. When nursing staff found the patient she had pulled off her oxygen was markedly hypoxic with sats in the 70s. The pat ient was obtunded and not following commands. Stat chest x-ray was performed which demonstrated pulmonary edema. She also had markedly dilated bowel with elevated right hemidiaphragm. A stat ABG was performed which demonstrated combined metabolic respiratory acidosis. Given the patient's deteriorating condition the decision was made take patient to the ICU for intubation. Patient was intubated without difficulty. Post intubation chest x-ray demonstrated ET tube 1 cm above the ej. When the position of the ET tube was checked the ET tube push and 2 cm beyond its initial position. ET tube was pulled back to original position 2 cm. Patient any equal breath sounds. Post intubation the patient did have a [id number] amount of blood in her NG tube. She already has Protonix IV b.i.d. ordered. Sedation has been provided with fentanyl and Versed. 1. Acute hypercapnic hypoxic respiratory failure--chest x-ray consistent with pulmonary edema versus pneumonia. Patient was initially given Lasix given order of frothy secretions and initial x-ray review. However, pneumonia is also possibility, specifically aspiration given the patient's dilated loops of bowel on x-ray. Will add ertapenem to the patient's vancomycin. Patient has been intubated and sedated. Patient's case was discussed with the sports equipment supervisor. Ventilator settings tidal volume 340 peep of 5 rate of 20 will wean FiO2 to maintain oxygen saturations greater than 92% repeat ABG was reviewed and demonstrated improving pH in stable pCO2. 2. Metabolic acidosis--and more suspicious of a metabolic component of patient's acidosis. Will check stat lactic acid and perform cheetah score. 3. Partial small-bowel obstruction--the patient has markedly dilated bowel even prior to intubation. Cannot rule out recurrence of small-bowel obstruction. 90 minute spent in critical care activities. Critical care time: 75 - 104 mins
[2021-09-24] VITALS (20 sets, daily range): BP systolic 84–95; BP diastolic 57–66; PULSE 93–147; RESP 18–28; TEMP 36.1–37.2; O2SAT 51–100; BMI 31.8
[2021-09-24 00:06] LABS: Alveolar/Arterial O2 Gradient 440.5 mmHg; Base Excess ABG -2.4 mEq/l (+/-2.0); Carboxyhemoglobin 0.3 % THb (0-2.0); Fractional Inspired Oxygen 100 %; HCO3 ABG 24.1 mEq/l (22.0-26.0); Methemoglobin ABG 0.6 %THb (0-1.5); Oxygen Content ABG 10.8 %vol (16.0-22.0); Oxygen Saturation ABG 99.4 % (95.0-100.0); Oxyhemoglobin 97.2 % THb (90.0-100.0); PO2 ABG 221.5 mmHg (80.0-100.0); PO2 FiO2 Ratio Arterial Blood 2.21 %; Reduced Hemoglobin 1.9 %THb (0-5.0)
[2021-09-24 00:11] LABS: Total Hemoglobin 7.5 g/dL (12.0-18.0); pH ABG 7.293 (7.350-7.450)
[2021-09-24 00:12] LABS: Arterial Blood Gas Tidal Volume 340 ml; Device VENTILATOR; Modified Allen's Test Pass; Site Drawn RIGHT RADIAL
[2021-09-24 00:13] LABS: Arterial Blood Gas PEEP 5 cmH2O; Arterial Blood Gas Vent Mode CMV; Arterial Blood Gas Ventilator rate 20 /MIN
[2021-09-24 00:44] LABS: Glucose Point of Care 188 mg/dl (65-105)
--- NOTE | 2021-09-24 01:01 | WPDPROCEDUR ---
Procedures Intubation Intubation Date: 09/23/21 Intubation Time: 22:30 Consent: Performed emergently A pre-procedural Time-Out was completed immediately before starting the procedure and confirmed: Patient Identification, Site, Procedure, Patient Position and the Availability of Requisite Equipment: No Sedative: etomidate Mg given: 20 Paralytic: succinylcholine Mg given: 100 Laryngoscope: fiber optic video scope ET tube size: 7.5 Tube secured location: lips Tube placement confirmation: visualized tube passing through cords, equal breath sounds bilaterally, no breath sounds over epigastrium and confirmation by capnometry Patient tolerated procedure: well and no complications
--- NOTE | 2021-09-24 01:39 | PC.NURSE ---
This patient, Cassi Alves, was received from [facility] on 09/23/21 at 2215. Patient/family oriented to unit policies and routines
[2021-09-24 02:00] LABS: White Blood Count 2.1 K/mm3 (4.5-10.0)
[2021-09-24 02:01] LABS: Basophils Percent Auto 0.5 % (0.2-1.2); Immature Granulocyte Absolute 0.01 K/mm3 (0.00-0.031); Immature Granulocyte Percent A 0.5 % (0-0.5); Immature Platelet Fraction Pct 7.1 % (0.9-11.2); Lymphocytes Absolute Auto 0.13 K/mm3 (0.9-3.2); Lymphocytes Percent Auto 6.3 % (18.3-44.2); Mean Platelet Volume 11.4 fl (7.4-10.4); Monocytes Absolute Auto 0.3 K/mm3 (0.1-0.6); Monocytes Percent Auto 12.1 % (2.6-8.5); Neutrophils Absolute Auto 1.7 K/mm3 (1.3-6.7); Neutrophils Percent Auto 80.6 % (45.5-73.1); Platelet Count Result 32 k/mm3 (150-375); Red Cell Distribution Width 15.7 % (11.5-14.5)
[2021-09-24 02:05] LABS: Hemoglobin 6.5 g/dL (12.0-15.0)
[2021-09-24 02:11] LABS: Alanine Aminotransferase 13 U/L (4-35); Albumin Level 4.4 g/dL (3.5-5.1); Alkaline Phosphatase 30 U/L (38-126); Anion Gap 13 mmol/L (8-16); Aspartate Amino Transferase 17 U/L (14-36); Bilirubin,Total 2.3 mg/dL (0.2-1.3); Blood Urea Nitrogen 13 mg/dL (7-17); Calcium 9.3 mg/dL (8.4-10.2); Carbon Dioxide 25 mmol/L (22-30); Chloride 102 mmol/L (98-107); Estimated CRCL calculation 136 ml/min; Estimated Glomerular Filt Rate > 60; Glucose 154 mg/dL (65-110); Magnesium 1.6 mg/dL (1.6-2.3); Potassium 3.5 mmol/L (3.4-5.0); Sodium 140 mmol/L (137-145)
[2021-09-24 02:13] LABS: Lactic Acid Reflex 4.6 mmol/L (0.7-2.1)
[2021-09-24] MEDS: ERTAPENEM 1 GM/NS 50 ML 1 GM/50 ML BAG IVPB (03:00)
[2021-09-24] MEDS: ALBUMIN HUMAN 25% 25 GM/100 ML 200 ML IVPB (03:18)
[2021-09-24 03:41] LABS: Vancomycin Trough 8.5 ug/mL (10.0-20.0)
[2021-09-24] MEDS: SODIUM CHLORIDE 0.9% IV 1,000 ML 500 ML IV CONT (04:27)
[2021-09-24 04:57] LABS: Reflex Lactic Acid Yes or No Add Lactic
--- NOTE | 2021-09-24 05:11 | PC.NURSE ---
Multiple attempts made to reach daughter Marilynn to obtain blood transfusion consent. Waiting for callback. Dr. Dov tucker.
[2021-09-24 05:35] LABS: Lactic Acid 3.4 mmol/L (0.7-2.1)
[2021-09-24 06:57] LABS: Base Excess ABG 2.5 mEq/l (+/-2.0); Total Hemoglobin 6.2 g/dL (12.0-18.0)
[2021-09-24 06:58] LABS: Carboxyhemoglobin 0.3 % THb (0-2.0); Methemoglobin ABG 0.4 %THb (0-1.5); Oxygen Content ABG 9.2 %vol (16.0-22.0); Reduced Hemoglobin 1.8 %THb (0-5.0)
[2021-09-24 06:59] LABS: Arterial Blood Gas PEEP 5 cmH2O; Arterial Blood Gas Vent Mode CMV; Arterial Blood Gas Ventilator rate 20 /MIN; Device VENTILATOR; Fractional Inspired Oxygen 50 %; Modified Allen's Test Pass; PO2 FiO2 Ratio Arterial Blood 4.87 %; Site Drawn RIGHT RADIAL
[2021-09-24 07:00] LABS: Arterial Blood Gas Tidal Volume 340 ml
[2021-09-24] MEDS: rifAXIMin 550 MG TABLET PO (09:08)
[2021-09-24] MEDS: MIDODRINE HCL 10 MG TABLET PO (09:08)
[2021-09-24] MEDS: SPIRONOLACTONE 25 MG TABLET PO (09:08)
[2021-09-24] MEDS: PANTOPRAZOLE SODIUM IV 40 MG VIAL IV PUSH (09:08)
[2021-09-24] MEDS: OLANZapine 2.5 MG TABLET PO (09:09)
--- NOTE | 2021-09-24 10:33 | WPDGIPROGNO ---
Progress Note: A&P Assessment and Plan (1) Ileitis: Code(s): K52.9 - Noninfective gastroenteritis and colitis, unspecified Status: Acute Assessment and Plan: as of her last small bowel series it appeared that she had only minimal inflammation or edema in the terminal ileum. Eventually this will be investigated but it appears that she may have a mild case of regional enteritis (2) Altered mental status: Qualifiers: Altered mental status type: unspecified Qualified Code(s): R41.82 - Altered mental status, unspecified Code(s): R41.82 - Altered mental status, unspecified Status: Acute Assessment and Plan: only 1 of her 1st 3 but ammonia levels were elevated on admission. I am sure that she has at least some element of hepatic encephalopathy, although for the week before Neil she was very lucid (3) Ascites: Code(s): R18.8 - Other ascites Status: Acute Assessment and Plan: she has had a paracentesis. Cultures were not done. Because she is on antibiotics now we could assume that she may have SBP and that is being treated, although usually we see that in patients who have chronic and tense ascites. (4) Hepatitis C: Code(s): B19.20 - Unspecified viral hepatitis C without hepatic coma Status: Acute Assessment and Plan: This is likely contributing factor to her cirrhosis. There is also a past history of alcohol abuse as well. She is not a candidate for treatment at this time Subjective Date/time seen: 09/24/21 10:33 when I last saw the patient she was eating well. We had ordered a follow-up small bowel series because of suspected partial small bowel obstruction earlier in her hospitalization. That study done on September 15 revealed only mild mucosal thickening in the terminal ileum. We were treating her empirically for possible regional enteritis pending results of serology. ASCA did come back elevated at 1:36 a.m., consistent with Crohn's disease. She subsequently developed ascites which required paracentesis. Unfortunately it was not sampled for diagnostic purposes to rule out SBP. She has however last 24 hours developed respiratory failure requiring intubation after rapid response was called yesterday evening. She is likely also septic and is on antibiotics. She is known to have chronic hepatitis-C which apparently had not ever been treated and she has cirrhosis with now ascites. Vigorous diuretics could not be used because her blood pressure had been soft, but she had been started on Aldactone. When she was 1st admitted with a urinary tract infection she had mental status changes and confusion. She then became quite lucid but apparently in the last few days has had some mental status changes again. Ammonia level on admission was normal. Although it is mentioned in 1 of the notes that she has markedly dilated bowel, mild own review of her last abdominal x-ray is that this is primarily distention of the colon. Review of Systems Constitutional: Comments: Additional review systems not obtainable due to her present condition Exam Const: General: other ( sedated) GI: Inspection: distended GI Palp: No abdominal tenderness and Yes Soft to palpation Auscultation: normal bowel sounds Objective Data Vital Signs Vital Signs: Vital Signs - 24 hr 09/23/21 12:00 09/23/21 13:23 09/23/21 16:00 Temperature 37.4 C 37.2 C Pulse Rate 95 78 128 H Respiratory Rate 20 24 H Blood Pressure 118/65 121/58 L Pulse Oximetry 93 91 09/23/21 20:00 09/23/21 20:29 09/23/21 20:38 Temperature 36.8 C Pulse Rate 130 H 120 H Respiratory Rate 22 H Blood Pressure 125/62 Pulse Oximetry 91 100 91 09/23/21 22:40 09/23/21 23:00 09/23/21 23:01 Temperature Pulse Rate 151 H 153 H 153 H Respiratory Rate 23 H 26 H 33 H Blood Pressure 136/86 Pulse Oximetry 98 09/23/21 23:31 09/24/21 00:00 09/24/21 00:01 Temperature Puls
--- NOTE | 2021-09-24 11:08 | WPDCNINT ---
Assessment and Plan Assessment and plan (1) Acute respiratory failure: Code(s): J96.00 - Acute respiratory failure, unspecified whether with hypoxia or hypercapnia Status: Acute Assessment and Plan: 09/23/2021 in response remitted of flow, with hypercapnic respiratory failure, tachypnea, impending respiratory failure. Patient was intubated on 09/23/2021. -currently on CMV mode, control 5 and 50% FiO2. ABGs and chest x-ray reviewed, could have developed new pneumonia or aspiration pneumonitis -he will decrease respiratory rate to 18 -continue bronchodilators -sedated with fentanyl and Versed infusion (2) Bacteremia: Code(s): R78.81 - Bacteremia Status: Acute Assessment and Plan: 07/22/2021 blood cultures growing coag-negative staph -09/03/2021 blood cultures growing coag-negative staph x2 -patient has been on vancomycin, which was switched to linezolid, she was pancytopenic so linezolid was switched back to vancomycin on 09/22/2021. - According to Infectious Disease continue antibiotics through 10/02/2021. (3) Pancytopenia: Code(s): D61.818 - Other pancytopenia Status: Acute Assessment and Plan: Pancytopenia likely multifactorial, likely related to sarcoidosis, bone marrow suppression, medications such as linezolid -will have Oncology evaluate the patient -patient also chronically thrombocytopenic, with no obvious bleeding (4) Ileitis: Code(s): K52.9 - Noninfective gastroenteritis and colitis, unspecified Status: Acute Assessment and Plan: Small-bowel series showed inflammation and edema in the terminal ileum. Patient has enteritis and ileitis, -continue bowel rest -GI following the patient -anti saccharomyces antibodies are positive -Cardio and GI most likely IBD likely Crohn's disease, patient status Pentasa, Entocort 09/23/2021 x-ray of the abdomen showed gaseous distension of the stomach and the colon -CT scan of the abdomen pelvis on 09/21/2021 showed gastroesophageal had callosities, cirrhosis, gallstones, moderate amount of ascites, mesenteric edema limiting sensitivity for acute abdominal inflammation. There is colonic fluid, no pneumatosis no interval change since 09/19/2021 - (5) Altered mental status: Qualifiers: Altered mental status type: unspecified Qualified Code(s): R41.82 - Altered mental status, unspecified Code(s): R41.82 - Altered mental status, unspecified Status: Acute Assessment and Plan: Patient with altered mental status, has had elevated ammonia level which had normalized this admission -will recheck ammonia level today -be related to hypercapnic as well as hypoxia since he was intubated last night on 09/23/2021 (6) COPD (chronic obstructive pulmonary disease): Code(s): J44.9 - Chronic obstructive pulmonary disease, unspecified Status: Acute Assessment and Plan: Patient has a history of COPD, -co dilators, currently on mechanical ventilation (7) Hepatitis C: Code(s): B19.20 - Unspecified viral hepatitis C without hepatic coma Status: Acute Assessment and Plan: Hepatitis C is a contributing factor to his cirrhosis. He also has a history of alcohol abuse. Patient is not a candidate for any treatment at this time per GI (8) Cirrhosis: Code(s): K74.60 - Unspecified cirrhosis of liver Status: Acute Assessment and Plan: Patient has a history of cirrhosis could be related to alcoholic versus hepatitis C. -paracenteses on 09/20/2021 with removal of 3600 mL cloudy yellow fluid -she is still leaking from the paracentesis site -abdominal CT on 09/21/2021 continues to show moderate ascites -will continue spironolactone if blood pressures permit (9) DVT prophylaxis: Code(s): Z29.9 - Encounter for prophylactic measures, unspecified Status: Acute Assessment and Plan: SCDs given thrombocytopenia, anemia (10) Anemia: Code(
--- NOTE | 2021-09-24 11:39 | PCFNICU ---
ICU Rounding Note: Pt current nutrition is NPO. Nutrition recommendation: Vital AF 1.2 at 20 ml/hr, goal rate at 60 ml/hr. Last recorded weight is 95 kg. Bowel Motility:+BM 1/3 Labs Reviewed:Glu 154, Hct 21.0,Hgb 6.5,Cr 0.4 Meds Noted:Fentanyl, Versed, Protonix,Vancomycin Skin: WNL Additional Notes: Patient currently on mechanical vent. No fevers. NPO at this time for possible SBO. GI following. Following daily in ICU rounds.
[2021-09-24 12:52] LABS: Ammonia 36 umol/L (9-30)
--- NOTE | 2021-09-24 13:03 | PDONCCN ---
HPI - Date of Consult Date/Time: 09/24/21 13:03 Requesting Physician: Charmaine Verde PA-C Primary Care Provider: BHANU MENDOZA - Consult Narrative Reason for consult: Pancytopenia. Narrative: Cassi Alves is a 66 year old female with history of hemorrhagic stroke liver cirrhosis hypertension and COPD initially came into the hospital on September 03 for evaluation of mental status changes. Patient is a [facility] resident. Patient has a history of staph bacteremia for which she was treated with vancomycin in the past. Patient was also tested positive for COVID-19 infection around Thanksgiving time. Patient is currently intubated and sedated. Patient is currently being treated with broad-spectrum antibiotic for bacteremia. Labs showed hemoglobin of 6.5 with WBC count of 2.1 and 32,000 platelets. She is asymptomatic with any bleeding. CT abdomen from September 05 showed liver cirrhosis splenomegaly and portal hypertension with moderate ascites. Review of Systems - Review of Systems All systems reviewed & are unremarkable except as noted in HPI and bel - Neurologic Reports hearing normal, Reports confusion, Reports sensory deficit PMFSH Medical History: Medical History (Last Reviewed 09/11/21 @ 07:38 by Juan Francisco Andres MD) Anxiety Bipolar disorder Cardiomegaly Cervical cancer Status post LEEP. Chronic obstructive pulmonary disease Cirrhosis Dementia Depression Diabetes Encephalomalacia on imaging study Right frontal lobe and right cerebellum. 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 Thrombocytopenia Surgical History: Surgical History (Last Reviewed 09/13/21 @ 12:15 by Juan Francisco Andres MD) History of 2 sections History of arthroplasty of left knee Onset Date: 2014 History of loop electrosurgical excision procedure (LEEP) Family History: Family History (Last Reviewed 09/13/21 @ 12:15 by Juan Francisco Andres MD) Father Hypertension Chronic obstructive pulmonary disease Congestive heart failure Mother Chronic obstructive pulmonary disease Sibling Hepatitis C - Social History Social History: Social History (Last Reviewed 09/13/21 @ 12:15 by Juan Francisco Andres MD) Alcohol Use: Alcohol intake: never Alcohol use details: Former heavy drinker. Substance Use: Substance use: never Substance use type: does not use Others: Spiritual care concerns: No Smoking Status: Smoking status: Former smoker Second hand tobacco smoke exposure: No Meds Home Medications Medication Instructions Recorded Confirmed Type Flovent Diskus 1 inh INHALATION BID 07/22/21 09/03/21 History albuterol sulfate 2 puff INHALATION Q4H PRN 07/22/21 09/03/21 History lactulose 30 ml PO TID 07/22/21 09/03/21 History metoprolol tartrate 25 mg PO BID 07/22/21 09/03/21 History multivit with min-folic acid 1 tablet PO DAILY 07/22/21 09/03/21 History omeprazole 20 mg PO DAILY 07/22/21 09/03/21 History trazodone 50 mg PO HS 07/22/21 09/03/21 History venlafaxine 37.5 mg PO DAILY 07/22/21 09/03/21 History Allergies Allergy/AdvReac Type Severity Reaction Status Date / Time Penicillins Allergy Severe Hives / Verified 08/17/20 17:05 Red Face prednisone Allergy Intermediate Other Verified 08/17/20 17:05 citalopram Allergy Mild Unknown Verified 08/17/20 17:05 Sulfa (Sulfonamide Allergy Mild Rash Verified 08/17/20 17:05 Antibiotics) diclofenac AdvReac Intermediate N/V Verified 08/17/20 17:05 tramadol AdvReac Unknown VOMITING Verified 07/23/21 07:28 Results - Labs CBC & Chem 7: 09/24/21 01:25 09/24/21 01:25 Labs: Short CBC 09/24/21 Range/Units 01:25 WBC 2.1 L (4.5-10.0) K/mm3 Hgb 6.5 L* (12.0-15.0) g/dL Hct 21.0 L (37.0-47.0) % Plt Count 32 L (150-375) k/mm3 BMP 09/24/21 01:25 Sodium 140 Potassium 3.5 Chloride 102 Carbon Di
[2021-09-24] MEDS: LEVALBUTEROL NEB 1.25 MG/3 ML 0.63 MG INHALATION (13:28)
[2021-09-24] MEDS: LORazepam INJ (*CRX) 2 MG/ML VIAL IV PUSH ×3 (15:25→21:20)
[2021-09-24] MEDS: MORPHINE SULFATE INJ (*CRX) 10 MG/ML AMP 5 MG IV PUSH (15:26)
[2021-09-24] MEDS: MORPHINE SULFATE (*CRX) 2 MG/ML INJ IV PUSH ×2 (18:58→21:21)
--- NOTE | 2021-09-25 00:08 | PC.NURSE ---
Patient at 2320. I called Marilynn, the patients daughter and made her aware of the time. The patient was on comfort care. Her belongings including a blue bag with stuffed animals, a beige bag with her phone included inside and a clear plastic bag that has her medical facilities section director and personal care products. The daughter requested we send the belongings with the body, to the home and she will pick them up there.
--- NOTE | 2021-09-25 13:54 | PM.DDS ---
Discharge Summary Date and Time Date of : 09/24/21 Time of : 23:20 Provider Pronounced By: Probable Cause of Probable Cause of : Acute respiratory failure pneumonia sepsis Summary Hospital Course: This is a 66 yo female who had a prolonged hospitalisation course this admission. she initially prsented with hypotension, bacteremia related to arachnoiditis and was on iv antibiotics per infectious disease recommedations with iv linezolid. She also developed nausea and vomiting with abdominal distension during the hospitalisation. CT showed chornic distal partial SBO vs ileus. GI was consulted and supected to have Crohn's disease. She was stared empirically on enterocort and pentasa per GI. THe bowel obstruction resovled spontaneously and subseqeunt Smaall bowel follow through showed no obvious obstruction.It did show ileal mucosal fold thickening. subsequently to this, she still continued to have abdominal distension and was noted to have increased ascites. her hypotension was managed with addition of midodrine however was limited in agressive diuresis. she was also placed on iv albumin to faciliate ascites management. she also underwent therapeutic paracentesis on 09/20/2021 with removal of 3.6 L peritoneal fluid. She also had issues with pancytopenia which was suspected to worsening sepeis, antibiotics. linezolid was switched to vancomycin. transfusion prn was done. she has hx of cirrhosis of liver. goals of care discusion was also continued throughout her hospital stay, with the pateint and also with the daughter. she remianed full code and on 09/23/2021 she was noted to have acute respiratory failure with pneumoina, suspeted aspiration and needed to be intubated. While in ICU,further goals of care discussionw as made and the comfort measures plan was implemented and was subsequently extubated palliatively. She subsequently and necessary arrangments were made. Additional Data Confirmation of as documented by pronouncing clinician: Pupillary Reflex, Palpable Pulses, Response to Stimuli, Heart Tones and Breath Sounds Name of Provider Notified: dr byers Time Provider Notified: 23:29 Provider Requests Autopsy: No C Engineer Notified: Yes Date [facility] Notified of : 09/24/21 Time [facility] Notified of : 23:46
== END 2021-09-24 23:20 | disposition expired ==
LOC: ANHED 16:24 → ANH3MEDSUR 16:29 → ANHICU 09-27 12:16
PROVIDERS: Internal Medicine; Nurse Practitioner Adult Health; Physician Assistant; Admitting Provider Internal Medicine; Emergency Provider Emergency Medicine; Visit Provider Internal Medicine
DX: B18.2 Chronic viral hepatitis C (principal); K72.90 Hepatic failure, unspecified without coma; K70.30 Alcoholic cirrhosis of liver without ascites; R78.81 Bacteremia; D61.818 Other pancytopenia; I51.7 Cardiomegaly; D69.59 Other secondary thrombocytopenia; B95.7 Other staphylococcus as the cause of diseases classified elsewhere; I95.9 Hypotension, unspecified; M41.9 Scoliosis, unspecified; J44.9 Chronic obstructive pulmonary disease, unspecified; I10 Essential (primary) hypertension; F03.90 Unspecified dementia, unspecified severity, without behavioral disturbance, psychotic disturbance, mood disturbance, and anxiety; F31.9 Bipolar disorder, unspecified; K56.7 Ileus, unspecified; I81 Portal vein thrombosis; J96.02 Acute respiratory failure with hypercapnia; R18.8 Other ascites; K50.012 Crohn's disease of small intestine with intestinal obstruction; K56.600 Partial intestinal obstruction, unspecified as to cause; K52.9 Noninfective gastroenteritis and colitis, unspecified; K55.059 Acute (reversible) ischemia of intestine, part and extent unspecified; I47.1 Supraventricular tachycardia; J18.9 Pneumonia, unspecified organism; J69.0 Pneumonitis due to inhalation of food and vomit; F41.9 Anxiety disorder, unspecified; Z96.652 Presence of left artificial knee joint; E46 Unspecified protein-calorie malnutrition; E72.20 Disorder of urea cycle metabolism, unspecified; Z68.31 Body mass index [BMI] 31.0-31.9, adult; Z85.41 Personal history of malignant neoplasm of cervix uteri; Z87.891 Personal history of nicotine dependence; Z86.73 Personal history of transient ischemic attack (TIA), and cerebral infarction without residual deficits; Z86.16 Personal history of COVID-19; G03.9 Meningitis, unspecified
CPT/HCPCS: 31500; 36415; 36430; 36569; 36600; 49083; 51701; 70450; 70551; 71045; 71260; 72157; 72158; 74018; 74019; 74176; 74177; 74240; 74248; 74250; 80048; 80053; 80069; 80076; 80202; 81001; 82140; 82375; 82607; 82728; 82805; 82948; 83050; 83540; 83550; 83605; 83690; 83735; 83880; 83993; 84100; 84132; 84145; 84443; 85014; 85018; 85025; 85027; 85055; 85610; 85652; 85730; 86021; 86140; 86671; 86850; 86900; 86901; 86920; 87015; 87040; 87045; 87077; 87186; 87269; 87272; 87324; 87427; 87522; 89055; 93005; 93306; 93880; 93970; 94002; 94003; 94640; 96372; 97110; 97116; 97162; 97164; 97165; 97530; 97535; 99285; A9270; A9577; C1751; C9113; G0378; G0379; J0330; J0743; J0744; J1335; J1630; J1940; J2020; J2060; J2250; J2270; J2405; J3010; J3370; J3475; J3480; J7030; J7040; J7050; P9016; P9047; Q9967